=== PATIENT | female | born 1940 | race Caucasian/White ===

== ENCOUNTER → 2016-03-19 13:46 | Outpatient (CLI) | payer OTHER | END | disposition home or self-care (01) | LOC: D.US 13:46 | DX: R22.9 Localized swelling, mass and lump, unspecified (principal) ==

== ENCOUNTER 2018-11-23 19:00 | Outpatient (CLI) | payer OTHER | END 2018-11-23 23:59 | disposition home or self-care (01) | LOC: D.MAMMO 19:00 | PROVIDERS: ATTEND Surgery | DX: R59.0 Localized enlarged lymph nodes (principal) ==

== ENCOUNTER → 2018-12-07 10:35 | Outpatient (CLI) | payer MEDICARE ==
[~2018-12-07 10:35] MED LIST: LISINOPRIL-HCT1 EAC4 PO; ULTRAM50 MG PO
[2018-12-11 11:21] VITALS: BMI 26.2
== END | disposition home or self-care (01) ==
LOC: D.US 10:35 → D.CT 13:30
PROVIDERS: ATTEND Surgery
DX: R59.0 Localized enlarged lymph nodes (principal)

== ENCOUNTER 2018-12-09 12:05 | Inpatient (IN) | payer MEDICARE ==
[~2018-12-09] VITALS: Ht 180.3 cm; Wt 85.3 kg
--- NOTE | 2018-12-09 12:30 | NUR ---
TO ROOM 2203 FROM 'S CLINIC.ASSESSMENT PER FLOW SHEET.IV SITED TO LEFT HAND X1 SICK USING ASEPTIC TECH,22G.FALL PREVENTION INITIATED.CALL LIGHT IN REACH
[2018-12-09 13:36] LABS: INR 1.12 (0.85-1.17); PROTIME 13.9 SECONDS (11.6-15.0)
[2018-12-09 15:12] VITALS: BP 152/72; BMI 26.2
[2018-12-09 16:48] VITALS: BP 137/68
[2018-12-09 18:21] LABS: ALBUMIN 3.7 g/dL (3.4-5.0); ANION GAP 11.3 mmol/L (8-16); BILIRUBIN - TOTAL 0.6 mg/dL (0.2-1.3); CALCIUM 9.7 mg/dL (8.5-10.1); CARBON DIOXIDE 28.8 mmol/L (21.0-32.0); CREATININE - SERUM 0.8 mg/dL (0.6-1.3); POTASSIUM - SERUM 4.1 mmol/L (3.5-5.1); PROTEIN - SERUM 7.3 g/dL (6.4-8.2)
--- NOTE | 2018-12-09 19:16 | NUR ---
REMAINS WITHOUT DISTRESS.CONT PLAN OF CARE
[2018-12-09 20:00] VITALS: BP 125/45
[2018-12-10] VITALS (12 sets, daily range): BP systolic 131–165; BP diastolic 57–81; BMI 26.2
[2018-12-10 05:14] LABS: BASOPHILS 0.3 % (0-2); EOSINOPHILS 4.2 % (0-7); HEMATOCRIT 40.9 % (36.0-48.0); HEMOGLOBIN 12.7 g/dL (12-16); IMMATURE GRANULOCYTES 0.2 % (0-5); LYMPHOCYTES 20.5 % (15-50); MCHC 31.1 g/dL (31.0-37.0); NEUTROPHILS 67.8 % (40-80); PLATELET COUNT 209 10x3/uL (130-400); WBC 5.8 10x3/uL (4.8-10.8)
[2018-12-10 06:02] LABS: CALC OSMOLALITY 284 mosm/kg (275-300); CALCIUM 9.1 mg/dL (8.5-10.1); CHLORIDE - SERUM 105 mmol/L (98-107); CREATININE - SERUM 0.7 mg/dL (0.6-1.3); GLUCOSE 106 mg/dL (74-106); POTASSIUM - SERUM 4.2 mmol/L (3.5-5.1); SODIUM 143 mmol/L (136-145); eGFR NON AFRICAN AMERICAN 85 mL/min (90-120)
[2018-12-10 06:15] LABS: UREA NITROGEN 12 mg/dL (7-18)
[2018-12-10] MEDS ORDERED: LISINOPRIL-HCT1 EAC4 PO (06:33)
[2018-12-10] MEDS ORDERED: ULTRAM50 MG PO (06:33)
--- NOTE | 2018-12-10 10:02 | NUR ---
FAMILY IN ROOM. CL IN REACH. NO NEEDS AT THIS TIME. PREPPED FOR SURGERY.
--- NOTE | 2018-12-10 13:13 | NUR ---
RESPIRATORY HERE AT THIS TIME GETTING EKG
--- NOTE | 2018-12-10 13:18 | NUR ---
CONSULTED WITH ANESTHESIA OF PT 12 LEAD EKG RESULTS. HE VOICED HE BELIVES THE PT HAS SICK SINUS SYNDROME AND THAT HE WILL PUT IN A CONSULT TO CARDIOLOGY. PT IS NOT SYMPTOMATIC AT THIS TIME WILL CONTINUE TO MONITOR
--- NOTE | 2018-12-10 14:01 | NUR ---
CONSULTED WITH ANESTHSIMelissa MCCORMICK ABOUT PT HR OF 50 AND NOTIFIED HIM OF THE CONTINOUS TELEMATRY ORDER FROM . HE VOICED "THAT IS JUST FINE, GOOD THINKING". WILL TRANSPOT PT SOON .
--- NOTE | 2018-12-10 21:15 | NUR ---
PT ALERT & ORIENTED. C/O RIGHT ARM/AXILLA PAIN 05/23. GAVE NORCO-5 1 TAB PO. ERASMO DRAIN WITH SCANT BLOODY DRAINAGE. COMPLETE ASSESSMENT PER FLOW-SHEET. NO OTHER NEEDS. WILL CONTINUE TO MONITOR.
[2018-12-11] VITALS: BP 141/63
[2018-12-11 04:00] VITALS: BP 144/73
[2018-12-11 06:32] LABS: BASOPHILS 0.1 % (0-2); EOSINOPHILS 0.6 % (0-7); HEMATOCRIT 35.3 % (36.0-48.0); HEMOGLOBIN 10.9 g/dL (12-16); IMMATURE GRANULOCYTES 0.4 % (0-5); LYMPHOCYTES 15.6 % (15-50); MCH 27.2 pg (26.0-34.0); MCHC 30.9 g/dL (31.0-37.0); MEAN PLATELET VOLUME 10.3 fL (7.4-10.4); MONOCYTES 9.5 % (2-11); NEUTROPHILS 73.8 % (40-80); PLATELET COUNT 216 10x3/uL (130-400); RBC 4.01 10x6/uL (4.00-5.40); RDW 14.2 % (11.5-14.5)
[2018-12-11 06:43] LABS: CALC OSMOLALITY 282 mosm/kg (275-300); CALCIUM 8.3 mg/dL (8.5-10.1); CARBON DIOXIDE 26.7 mmol/L (21.0-32.0); CHLORIDE - SERUM 107 mmol/L (98-107); CREATININE - SERUM 0.7 mg/dL (0.6-1.3); GLUCOSE 95 mg/dL (74-106); SODIUM 142 mmol/L (136-145); UREA NITROGEN 12 mg/dL (7-18); eGFR NON AFRICAN AMERICAN 85 mL/min (90-120)
--- NOTE | 2018-12-11 07:30 | NUR ---
PT RESTING IN BED WITH EYES OPEN, ALERT AND ORIENTED, NO S/S OF DISTRESS. IV LOCATED TO RIGHT HAND RUNNING D5NS @ 75. DENIES NEEDS AT THIS TIME, WILL CONT TO MONITOR. BED LOW, CALL LIGHT IN REACH.
[2018-12-11 08:46] VITALS: BP 115/60
[2018-12-11 11:21] VITALS: Ht 180.3 cm; Wt 85.3 kg
--- NOTE | 2018-12-11 12:10 | NUR ---
REMOVED ERASMO DRAIN. DENIES NEEDS AT THIS TIME.
--- NOTE | 2018-12-11 12:37 | MORECARE ---
CASE MANAGEMENT DISCHARGE SUMMARY PATIENT: LYLE VILLA UNIT: [id number] ADM DATE: 12/09/18 AGE: 78 : 38 SEX: F ROOM/BED: D.2203 AUTHOR: BRIDGETTE CHI PHYSICIAN: REFERRING PHYSICIAN: VETO [place] MD DATE OF SERVICE: 12/11/18 Discharge Plan Patient Name: LYLE VILLA Facility: [facility]:[place] : 1940 Planned Disposition: Home Anticipated Discharge Date: 12/11/18 Discharge Date: Expected LOS: 2 Initial Reviewer: [email or web address] Initial Review Date: 12/11/2018 Generated: 12/11/18 1:37 pm Patient Name: LYLE VILLA Page 75818 at 1237 All edits/amendments must be made on the electronic document DICTATION DATE: 12/11/[address] OPERATOR: SIMON 12/11/18 1237 RPT#: [id number] DC DATE: STATUS: ADM IN [facility] [address] [place] [address] END OF REPORT
--- NOTE | 2018-12-11 12:44 | MORECARE ---
CASE MANAGEMENT DISCHARGE SUMMARY PATIENT: LYLE VILLA UNIT: [id number] ADM DATE: 12/09/18 AGE: 78 : 38 SEX: F ROOM/BED: D.2203 AUTHOR: BRIDGETTE CHI PHYSICIAN: REFERRING PHYSICIAN: VETO [place] MD DATE OF SERVICE: 12/11/18 Discharge Plan Patient Name: LYLE VILLA Facility: [facility]:[place] : 1940 Planned Disposition: Home Anticipated Discharge Date: 12/11/18 Discharge Date: Expected LOS: 2 Initial Reviewer: [email or web address] Initial Review Date: 12/11/2018 Generated: 12/11/18 1:44 pm DCPIA - Discharge Planning Initial Assessment Updated by [id number]: Vickie Chacon on 12/11/18 12:39 pm * Is the patient Alert and Oriented? Yes * How many steps to enter\exit or inside your home? 3 w/ rail * PCP DR John Bryan * Pharmacy [facility] * Preadmission Environment Home Alone * Partial ADLs (Assistance needed) Bathing * Equipment None * Other Equipment Denies any DME. Denies any need for DME * List name and contact numbers for known caregivers / representatives who currently or will assist patient after discharge: Naomi Pinon- dtr- [phone] * Verbal permission to speak to the caregivers and representatives has been obtained from the patient. Yes * Community resources currently utilized None * Please name any agencies selected above. N/A * Additional services required to return to the preadmission environment? No * Can the patient safely return to the preadmission environment? Yes Last DP export: 12/11/18 11:37 a Patient Name: LYLE VILLA Page [id number] at 1244 All edits/amendments must be made on the electronic document DICTATION DATE: 12/11/18 1244 DOMESTIC LAUNDRY WORKER: SIMON 12/11/18 1244 RPT#: [id number] DC DATE: STATUS: ADM IN [facility] [address] [place] [address] END OF REPORT
--- NOTE | 2018-12-11 13:05 | MORECARE ---
CASE MANAGEMENT DISCHARGE SUMMARY PATIENT: LYLE VILLA UNIT: [id number] ADM DATE: 12/09/18 AGE: 78 : 38 SEX: F ROOM/BED: D.2203 AUTHOR: ALON,DOC PHYSICIAN: REFERRING PHYSICIAN: VETO MARION MD DATE OF SERVICE: 12/11/18 Discharge Plan Patient Name: LYLE VILLA Facility: [facility]:[place] : 1940 Planned Disposition: Home Anticipated Discharge Date: 12/11/18 Discharge Date: Expected LOS: 2 Initial Reviewer: [email or web address] Initial Review Date: 12/11/2018 Generated: 12/11/18 2:04 pm Comments DCP- Discharge Planning Updated by [email or web address]: Vickie Chacon on 12/11/18 12:[address] CM MET WITH THE PATIENT IN HER ROOM. HER DAUGHTERS ARE AT THE BEDSIDE. PATIENT IS AWARE SHE IS GOING HOME AND IS ANXIOUS FOR DISCHARGE. HER DAUGHTERS, NAOMI AND FABIANA, VOICED CONCERNS. SHE LIVES ALONE. THE ONE DAUGHTER, NAOMI, LIVES ON THE SAME PROPERTY. THE DAUGHTERS AND THE SON IN LAW CAN ASSIST THE PATIENT. THE PATIENT HAS BEEN UP AND AMBULATED TO THE BATHROOM AND IN HER ROOM WITHOUT DIFFICULTY PER THE PATIENT AND HER NURSE. SHE STATES SHE IS INDEPENDENT IN HER CARE. DOES NOT UTILIZE ANY DME. SHE DOES FEEL SHE NEEDS ANY DME. SHE DOES HAVE A LITTLE DOG. SHE DOES NOT WANT TO FALL. CM DISCUSSED SAFETY MEASURES W/ A PET IN THE HOME. SHE DOES NOT FEEL SHE NEEDS ANY HOME CARE. SHE STATED SOMEONE FROM HER INSURANCE COMPANY CALLED TO SEE IF SHE WOULD NEED HELP AT HOME. SHE STATES SHE TOLD THEM NO. CM ADVISED THE DOCTOR HAS ORDERED HOUSECALLS. EXPLAINED HOUSECALLS TO THE PATIENT. MANAGER CAFE WILL PROVIDE HOUSECALLS BROCHURE TO THE PATIENT. PCP- [facility]- [facility] in [place]. THE DAUGHTER STATES THEY WILL USE [facility] AT NOON. THE FAMILY AT THE BEDSIDE WILL PROVIDE TRANSPORTATION HOME. SHE HAS 3 STEPS W/ RAILING INTO HER HOME. SHE HAD NOT HAD A HOSPITALIZATION IN THE LAST MONTH. CM ASK IF THE DTRS HAD SPOKEN WITH THE DOCTORS. FABIANA WAS AT THE BEDSIDE WHEN DR JONES VISITED THIS AM. NAOMI WAS AT THE BEDSIDE WHEN DR RÍOS VISITED. CM ADVISED THE PRIMARY NURSE AND FRANK PORTILLO, THAT THE DAUGHTERS HAD VOICED SOME CONCERNS. THE PATIENT HOWEVER IS ANXIOUS TO BE DISCHARGED TO HOME. SHE FEELS SHE WILL DO WELL. DCPIA - Discharge Planning Initial Assessment Updated by [id number]: Vickie Chacon on 12/11/18 12:39 pm * Is the patient Alert and Oriented? Yes * How many steps to enter\exit or inside your home? 3 w/ rail * PCP DR John Coronado * Pharmacy [facility] * Preadmission Environment Home Alone * Partial ADLs (Assistance needed) Bathing * Equipment None * Other Equipment Denies any DME. Denies any need for DME * List name and contact numbers for known caregivers / representatives who currently or will assist patient after discharge: Naomi Pinon- dtr- [phone] * Verbal permission to speak to the caregivers and representatives has been obtained from the patient. Yes * Community resources currently utilized None * Please name any agencies selected above. N/A * Additional services required to return to the preadmission environment? No * Can the patient safely return to the preadmission environment? Yes Last DP export: 12/11/18 11:44 a Patient Name: LYLE VILLA Page 14470 at 1305 All edits/amendments must be made on the electronic document DICTATION DATE: 12/11/18 1304 GOLF CADDY: SMION 12/11/18 1304 RPT#: [id number] DC DATE: STATUS: ADM IN [facility] [address] [place] [address] END OF REPORT
--- NOTE | 2018-12-11 13:20 | NUR ---
PT DISCHARGED HOME VIA WHEELCHAIR WITH HER FAMILY.
--- NOTE | 2018-12-11 16:52 | MORECARE ---
CASE MANAGEMENT DISCHARGE SUMMARY PATIENT: LYLE VILLA UNIT: [id number] ADM DATE: 12/09/18 AGE: 78 : 38 SEX: F ROOM/BED: D.2203 AUTHOR: ALON,DOC PHYSICIAN: REFERRING PHYSICIAN: VETO MARION MD DATE OF SERVICE: 12/11/18 Discharge Plan Patient Name: LYLE VILLA Facility: [facility]:[place] : 1940 Planned Disposition: Home Anticipated Discharge Date: 12/11/18 Discharge Date: 12/11/2018 Expected LOS: 2 Initial Reviewer: [email or web address] Initial Review Date: 12/11/2018 Generated: 12/11/18 5:52 pm Comments DCP- Discharge Planning Updated by [email or web address]: Vickie Chacon on 12/11/18 12:[address] CM MET WITH THE PATIENT IN HER ROOM. HER DAUGHTERS ARE AT THE BEDSIDE. PATIENT IS AWARE SHE IS GOING HOME AND IS ANXIOUS FOR DISCHARGE. HER DAUGHTERS, NAOMI AND FABIANA, VOICED CONCERNS. SHE LIVES ALONE. THE ONE DAUGHTER, NAOMI, LIVES ON THE SAME PROPERTY. THE DAUGHTERS AND THE SON IN LAW CAN ASSIST THE PATIENT. THE PATIENT HAS BEEN UP AND AMBULATED TO THE BATHROOM AND IN HER ROOM WITHOUT DIFFICULTY PER THE PATIENT AND HER NURSE. SHE STATES SHE IS INDEPENDENT IN HER CARE. DOES NOT UTILIZE ANY DME. SHE DOES FEEL SHE NEEDS ANY DME. SHE DOES HAVE A LITTLE DOG. SHE DOES NOT WANT TO FALL. CM DISCUSSED SAFETY MEASURES W/ A PET IN THE HOME. SHE DOES NOT FEEL SHE NEEDS ANY HOME CARE. SHE STATED SOMEONE FROM HER INSURANCE COMPANY CALLED TO SEE IF SHE WOULD NEED HELP AT HOME. SHE STATES SHE TOLD THEM NO. CM ADVISED THE DOCTOR HAS ORDERED HOUSECALLS. EXPLAINED HOUSECALLS TO THE PATIENT. PLATFORM LOADER WILL PROVIDE HOUSECALLS BROCHURE TO THE PATIENT. PCP- [facility]- [facility] in [place]. THE DAUGHTER STATES THEY WILL USE [facility] AT NOON. THE FAMILY AT THE BEDSIDE WILL PROVIDE TRANSPORTATION HOME. SHE HAS 3 STEPS W/ RAILING INTO HER HOME. SHE HAD NOT HAD A HOSPITALIZATION IN THE LAST MONTH. CM ASK IF THE DTRS HAD SPOKEN WITH THE DOCTORS. FABIANA WAS AT THE BEDSIDE WHEN DR JONES VISITED THIS AM. NAOMI WAS AT THE BEDSIDE WHEN DR RÍOS VISITED. CM ADVISED THE PRIMARY NURSE AND FRANK PORTILLO, THAT THE DAUGHTERS HAD VOICED SOME CONCERNS. THE PATIENT HOWEVER IS ANXIOUS TO BE DISCHARGED TO HOME. SHE FEELS SHE WILL DO WELL. DCPIA - Discharge Planning Initial Assessment Updated by [email or web address]: Vickie Chacon on 12/11/18 12:39 pm * Is the patient Alert and Oriented? Yes * How many steps to enter\exit or inside your home? 3 w/ rail * PCP DR John Coronado * Pharmacy [facility] * Preadmission Environment Home Alone * Partial ADLs (Assistance needed) Bathing * Equipment None * Other Equipment Denies any DME. Denies any need for DME * List name and contact numbers for known caregivers / representatives who currently or will assist patient after discharge: Naomi Pinon- dtr- [phone] * Verbal permission to speak to the caregivers and representatives has been obtained from the patient. Yes * Community resources currently utilized None * Please name any agencies selected above. N/A * Additional services required to return to the preadmission environment? No * Can the patient safely return to the preadmission environment? Yes Coverage Notice Reviewer: [id number] - Vickie Chacon Notice Issued Date-Time: 12/11/2018 12:50 Notice Type: IM Discharge Notice Notice Delivered To: Patient Relationship to Patient: Self Bank Advisor Name: Delivery Method: HAND - Hand Delivered Keshia Days: Prior Verbal Notification: Recipient Understood Notice: Yes Recipient Signature: Yes Med Rec Note Co-signed by Attending: Coverage Notice Comment: PATIENT ANXIOUS FOR DISCHARGE TO HOME. DISCHARGE IMM SERVED. NO QUESTIONS. DISCHARGE IMM SIGNED. SIGNED COPY TO THE PATIENT. SIGNED COPY TO THE HARD COVER CHART. Last DP export: 12/11/18 12:05 p Patient Name: LYLE VILLA Page [id number] at 1652 All edits/amendments must be made on the electronic document DICTATION DATE: 12/11/181651 BRICK OR BLOCK MAKER: SIMON 12/11/181651 RPT#: [id number] DC DATE:12/11/18 STATUS: DIS IN [place] [id number] [facility], [facility] END OF REPORT
--- NOTE | 2018-12-12 22:18 | OP ---
PATIENT NAME: LYLE VILLA MEDICAL RECORD: [id number] :[birth year] LOCATION:D.MS Soria2203 ADMISSION DATE:12/09/18 SURGEON: JON HERRERA MD DATE OF OPERATION: 12/10/2018 SURGEON: Jon Herrera MD PREOPERATIVE DIAGNOSIS: Metastatic cancer with right axillary mass. POSTOPERATIVE DIAGNOSIS: Metastatic cancer with right axillary mass. PROCEDURE PERFORMED: 1. Incisional biopsy of right axillary mass. 2. Repair of right axillary artery. ANESTHESIA: General. SPECIMENS: None. ESTIMATED BLOOD LOSS: 100 cc. WOUND CLASS: Clean. OPERATIVE COURSE: After consent was obtained, the patient was taken to the operating room and placed in supine position on the operating table. Next, general anesthesia was given via endotracheal intubation after a timeout was performed to confirm the correct patient and procedure. The right axilla was prepped and draped in typical sterile fashion. The right axillary mass, which was identified on preoperative imaging was palpated. Local anesthetic was injected. Skin incision was made over the mass with a 15 blade scalpel. Dissection continued through the subcutaneous tissue with electrocautery. Once I dissected the subcutaneous tissue, the mass was identified. It was bluntly finger dissected and extended well beyond underneath the pectoralis major and down to the anterior chest wall. It was dissected to the lateral chest wall. As dissection continued around the anterior side of the mass, a brisk arterial bleed was encountered from the dissection. I believe there was a sidewall injury on the axillary artery when attempting to mobilize the axillary mass. The axillary artery was clamped, proximal and distal, dissection of the artery was obtained until the vessel clamps were placed with proximal and distal control of the artery, the area of inadvertent arteriotomy was identified. At this time 5000 units of intravenous Heparin were administered. Once the dissection of the artery was complete and the proximal and distal control had been obtained, the vessel loops were released. There was no active bleeding. At this time, the Doppler was placed on the artery. There was positive Doppler flow at the level of the radial artery. BioGlue was applied to the artery. There was no further bleeding identified at this time. At this time, an incisional biopsy was performed of the mass. The mass was approximately 10 cm x 8 cm x 5 cm. An incisional biopsy was performed. At this point it was safet to attempt to remove the mass en bloc as the superior portion of the mass was encased around the axillary artery. The specimen was passed off the field for frozen section and permanent pathology. The wound bed was copiously irrigated and suctioned. Hemostasis obtained with electrocautery and clips. Rosalia was also applied to the wound bed. A ERASMO drain was placed into the axilla and delivered through the skin and secured with 2-0 nylon suture. The wound was closed in 3 layers. The deep subcutaneous tissue was closed with 0 Vicryl, OPERATIVE REPORT [id number] LYLE VILLA superficial subq with 3-0 Vicryl. Skin was closed with 4-0 Stratafix and Dermabond. At the end of the case, all needle and instrument counts were correct. No complications occurred. The patient had palpable radial pulse as well as positive Doppler signals in the right radial artery and ulnar artery. The patient was extubated and transferred to PACU in satisfactory condition. TRANSINT:[id number] Voice Confirmation ID: [id number] DOCUMENT ID: [id number] JON HERRERA MD at 2218 CC: [id number] DICTATION DATE: 12/10/18 1311 RVDA MASTER CERTIFIED RV TECHNICIAN: 12/10/18 1653 DIS IN 12/11/18 [facility] [address] [place] [address]
--- NOTE | 2018-12-13 08:47 | MORECARE ---
CASE MANAGEMENT DISCHARGE SUMMARY PATIENT: LYLE VILLA UNIT: [id number] ADM DATE: 12/09/18 AGE: 78 : 38 SEX: F ROOM/BED: D.2203 AUTHOR: ALON,DOC PHYSICIAN: REFERRING PHYSICIAN: VETO [place] MD DATE OF SERVICE: 12/13/18 Discharge Plan Patient Name: LYLE VILLA Facility: [facility]:[place] : 1940 Planned Disposition: Home Anticipated Discharge Date: 12/11/18 Discharge Date: 12/11/2018 Expected LOS: 2 Initial Reviewer: [email or web address] Initial Review Date: 12/11/2018 Generated: 12/13/18 9:47 am Comments DCP- Discharge Planning Updated by [id number]: Vickie Chacon on 12/11/18 12:[address] CM MET WITH THE PATIENT IN HER ROOM. HER DAUGHTERS ARE AT THE BEDSIDE. PATIENT IS AWARE SHE IS GOING HOME AND IS ANXIOUS FOR DISCHARGE. HER DAUGHTERS, NAOMI AND FABIANA, VOICED CONCERNS. SHE LIVES ALONE. THE ONE DAUGHTER, NAOMI, LIVES ON THE SAME PROPERTY. THE DAUGHTERS AND THE SON IN LAW CAN ASSIST THE PATIENT. THE PATIENT HAS BEEN UP AND AMBULATED TO THE BATHROOM AND IN HER ROOM WITHOUT DIFFICULTY PER THE PATIENT AND HER NURSE. SHE STATES SHE IS INDEPENDENT IN HER CARE. DOES NOT UTILIZE ANY DME. SHE DOES FEEL SHE NEEDS ANY DME. SHE DOES HAVE A LITTLE DOG. SHE DOES NOT WANT TO FALL. CM DISCUSSED SAFETY MEASURES W/ A PET IN THE HOME. SHE DOES NOT FEEL SHE NEEDS ANY HOME CARE. SHE STATED SOMEONE FROM HER INSURANCE COMPANY CALLED TO SEE IF SHE WOULD NEED HELP AT HOME. SHE STATES SHE TOLD THEM NO. CM ADVISED THE DOCTOR HAS ORDERED HOUSECALLS. EXPLAINED HOUSECALLS TO THE PATIENT. OFFSET PLATE MAKER WILL PROVIDE HOUSECALLS BROCHURE TO THE PATIENT. PCP- [facility]- [facility] in [place]. THE DAUGHTER STATES THEY WILL USE [facility] AT NOON. THE FAMILY AT THE BEDSIDE WILL PROVIDE TRANSPORTATION HOME. SHE HAS 3 STEPS W/ RAILING INTO HER HOME. SHE HAD NOT HAD A HOSPITALIZATION IN THE LAST MONTH. CM ASK IF THE DTRS HAD SPOKEN WITH THE DOCTORS. FABIANA WAS AT THE BEDSIDE WHEN DR JONES VISITED THIS AM. NAOMI WAS AT THE BEDSIDE WHEN DR RÍOS VISITED. CM ADVISED THE PRIMARY NURSE AND FRANK PORTILLO, THAT THE DAUGHTERS HAD VOICED SOME CONCERNS. THE PATIENT HOWEVER IS ANXIOUS TO BE DISCHARGED TO HOME. SHE FEELS SHE WILL DO WELL. DCPIA - Discharge Planning Initial Assessment Updated by [email or web address]: Vickie Chacon on 12/11/18 12:39 pm * Is the patient Alert and Oriented? Yes * How many steps to enter\exit or inside your home? 3 w/ rail * PCP DR John Coronado * Pharmacy [facility] * Preadmission Environment Home Alone * Partial ADLs (Assistance needed) Bathing * Equipment None * Other Equipment Denies any DME. Denies any need for DME * List name and contact numbers for known caregivers / representatives who currently or will assist patient after discharge: Naomi Pinon- dtr- [phone] * Verbal permission to speak to the caregivers and representatives has been obtained from the patient. Yes * Community resources currently utilized None * Please name any agencies selected above. N/A * Additional services required to return to the preadmission environment? No * Can the patient safely return to the preadmission environment? Yes Coverage Notice Reviewer: [email or web address] - Vickie Chacon Notice Issued Date-Time: 12/11/2018 12:50 Notice Type: IM Discharge Notice Notice Delivered To: Patient Relationship to Patient: Self Tax Technician Name: Delivery Method: HAND - Hand Delivered Keshia Days: Prior Verbal Notification: Recipient Understood Notice: Yes Recipient Signature: Yes Med Rec Note Co-signed by Attending: Coverage Notice Comment: PATIENT ANXIOUS FOR DISCHARGE TO HOME. DISCHARGE IMM SERVED. NO QUESTIONS. DISCHARGE IMM SIGNED. SIGNED COPY TO THE PATIENT. SIGNED COPY TO THE HARD COVER CHART. Last DP export: 12/11/18 3:52 p Patient Name: LYLE VILLA Page [id number] at 0847 All edits/amendments must be made on the electronic document DICTATION DATE: 12/13/18846 ROD BENDING MACHINE OPERATOR: SIMON 12/13/18846 RPT#: [id number] DC DATE:12/11/18 STATUS: DIS IN [place] [id number] [facility], [facility] END OF REPORT
--- NOTE | 2018-12-13 11:22 | OP ---
PATIENT NAME: LYLE VILLA MEDICAL RECORD: [id number] :36 LOCATION:D.MS Soria2203 ADMISSION DATE:12/09/18 SURGEON: JADE FLORES MD DATE OF OPERATION: 12/10/2018 This is an assistant laboratory director's note. I assisted Dr. Jay Araya with repair of an axillary artery. I was called to the room emergently. Dr. Araya already had proximal and distal control on the bleeding area on the artery. My involvement in the operation included some dissection further proximally and further distally. I was able to encircle the artery with some vessel loops. We then released his control on the artery. There was no further bleeding. We then sealed the artery with BioGlue. My suspicion is that there was perhaps a small side branch that was avulsed or maybe there was a linear tear, but it had closed by the time we had investigated the situation. Anyhow, there was no further bleeding. The patient had a bounding right radial artery pulse. Under color Doppler, we could see apparent arteries in the axilla, one was the axillary artery and it had patent flow as did the other artery, which was more posterior. On the medial aspect of the right arm, arterial Doppler signal could be seen in the brachial artery. I then left. Dr. Araya went about closing the wound. My involvement in the arterial repair was minor. TRANSINT:[id number] Voice Confirmation ID: [id number] DOCUMENT ID: [id number] JADE FLORES MD at 1122 CC: [id number] DICTATION DATE: 12/11/18905 WOOD BOATBUILDER APPRENTICE: 12/11/18 09 DIS IN 12/11/18 [facility] [address] [place] [id number]
[2018-12-14 11:13] LABS: CA 27-29 40.5 U/mL (0.0-38.6)
[2018-12-14 13:10] LABS: CA125 13.4 U/mL (0.0-38.1); CEA 1.4 ng/mL (0.0-4.7)
== END 2018-12-11 13:20 | disposition home or self-care (01) | DRG 824 ==
LOC: D.MS 12:05
PROVIDERS: Internal Medicine Hematology & Oncology; ADMIT Surgery; ATTEND Internal Medicine Nephrology
PROC: 03Q Upper Arteries, Repair (ICD-10-PCS; 2018-12-10)
PROC: 07B50ZX Excision of Right Axillary Lymphatic, Open Approach, Diagnostic (ICD-10-PCS; principal; 2018-12-10 10:00)
DX: C77.3 Secondary and unspecified malignant neoplasm of axilla and upper limb lymph nodes (principal); D62 Acute posthemorrhagic anemia; I97.52 Accidental puncture and laceration of a circulatory system organ or structure during other procedure; C80.1 Malignant (primary) neoplasm, unspecified; I10 Essential (primary) hypertension; Y83.9 Surgical procedure, unspecified as the cause of abnormal reaction of the patient, or of later complication, without mention of misadventure at the time of the procedure

== ENCOUNTER → 2018-12-29 09:15 | Outpatient (CLI) | payer MEDICARE ==
[2018-12-11 11:21] VITALS: BMI 26.2
[~2018-12-29 09:15] MED LIST changes: +DURAGESIC1 PATCH .4 TRANSDERM; +HYDROCODON-ACE1 EAC7 PO; +LEVOFLOXACIN500 MG PO; +MIRALAX17 GM PO; +NORVASC5 MG PO; +PREDNISONE10 MG PO
== END | disposition home or self-care (01) ==
LOC: D.MRI 09:15
PROVIDERS: ATTEND Internal Medicine Hematology & Oncology
DX: C43.8 Malignant melanoma of overlapping sites of skin (principal)

== ENCOUNTER 2019-01-02 09:12 | Emergency (ER) | payer MEDICARE ==
[~2019-01-02] VITALS: Ht 180.3 cm; Wt 83.2 kg
[~2019-01-02 09:12] MED LIST changes: -DURAGESIC1 PATCH .4 TRANSDERM; -HYDROCODON-ACE1 EAC7 PO; -LEVOFLOXACIN500 MG PO; -MIRALAX17 GM PO; -NORVASC5 MG PO; -PREDNISONE10 MG PO
[2019-01-02 09:17] VITALS: Ht 180.3 cm; Wt 83.2 kg
[2019-01-02 09:48] LABS: BASOPHILS 0.2 % (0-2); EOSINOPHILS 0.9 % (0-7); HEMATOCRIT 41.4 % (36.0-48.0); IMMATURE GRANULOCYTES 0.2 % (0-5); LYMPHOCYTES 16.5 % (15-50); MCH 27.2 pg (26.0-34.0); MCHC 31.4 g/dL (31.0-37.0); MCV 86.6 fL (80.0-100.0); MEAN PLATELET VOLUME 10.1 fL (7.4-10.4); MONOCYTES 7.3 % (2-11); NEUTROPHILS 74.9 % (40-80); PLATELET COUNT 243 10x3/uL (130-400); RBC 4.78 10x6/uL (4.00-5.40); RDW 13.4 % (11.5-14.5); WBC 6.3 10x3/uL (4.8-10.8)
[2019-01-02 09:56] LABS: APTT 23.8 SECONDS (22.8-39.4); CALC OSMOLALITY 277 mosm/kg (275-300); CALCIUM 11.4 mg/dL (8.5-10.1); CHLORIDE - SERUM 104 mmol/L (98-107); CREATININE - SERUM 0.8 mg/dL (0.6-1.3); GLUCOSE 118 mg/dL (74-106); INR 0.97 (0.85-1.17); POTASSIUM - SERUM 4.6 mmol/L (3.5-5.1); PROTIME 12.4 SECONDS (11.6-15.0); SODIUM 139 mmol/L (136-145); UREA NITROGEN 10 mg/dL (7-18); eGFR NON AFRICAN AMERICAN 73 mL/min (90-120)
[2019-01-02 09:57] LABS: D-DIMER-QUANTITATIVE 2.12 ug/mLFEU (0.20-0.54)
[2019-01-02 10:04] LABS: APPEARANCE CLEAR (CLEAR); BILIRUBIN NEGATIVE (NEGATIVE); COLOR YELLOW (YELLOW); GLUCOSE NEGATIVE (NEGATIVE); KETONE NEGATIVE (NEGATIVE); NITRITE NEGATIVE (NEGATIVE); PROTEIN NEGATIVE (NEGATIVE); SPECIFIC GRAVITY 1.015 (1.005-1.020); UROBILINOGEN NORMAL (NORMAL)
[2019-01-02 10:11] LABS: ALBUMIN 3.6 g/dL (3.4-5.0); ALKALINE PHOSPHATASE 95 U/L (46-116); ALT (SGPT) 25 U/L (10-68); BILIRUBIN - TOTAL 0.85 mg/dL (0.2-1.3); CKMB 0.8 U/L (0.0-3.6); CREATINE KINASE 27 UL (21-215); PRO BNP 411 pg/mL (0-450); PROTEIN - SERUM 7.4 g/dL (6.4-8.2)
[2019-01-02 10:12] LABS: TROPONIN-I < 0.017 ng/mL (0.000-0.060)
[2019-01-02] MEDS ORDERED: NORVASC5 MG PO (12:12)
[2019-01-02 13:12] VITALS: BP 143/90
== END 2019-01-02 14:06 | disposition home or self-care (01) ==
LOC: D.ER 09:12
PROVIDERS: Emergency Medicine
DX: C79.2 Secondary malignant neoplasm of skin (principal); I10 Essential (primary) hypertension; R06.02 Shortness of breath

== ENCOUNTER 2019-01-10 10:12 | Inpatient (IN) | payer MEDICARE ==
[~2019-01-10] VITALS: Ht 180.3 cm; Wt 81.2 kg
[~2019-01-10 10:12] MED LIST changes: +NORVASC5 MG PO
[2019-01-10 11:14] LABS: ALBUMIN 3.6 g/dL (3.4-5.0); ALKALINE PHOSPHATASE 104 U/L (46-116); ALT (SGPT) 86 U/L (10-68); BILIRUBIN - TOTAL 0.88 mg/dL (0.2-1.3); CALC OSMOLALITY 277 mosm/kg (275-300); CHLORIDE - SERUM 102 mmol/L (98-107); CREATININE - SERUM 0.7 mg/dL (0.6-1.3); GLUCOSE 113 mg/dL (74-106); POTASSIUM - SERUM 4.6 mmol/L (3.5-5.1); PROTEIN - SERUM 7.1 g/dL (6.4-8.2); SODIUM 138 mmol/L (136-145); UREA NITROGEN 15 mg/dL (7-18); eGFR NON AFRICAN AMERICAN 85 mL/min (90-120)
[2019-01-10 11:24] LABS: CALCIUM 12.1 mg/dL (8.5-10.1)
[2019-01-10 11:37] LABS: CKMB 0.6 U/L (0.0-3.6); CREATINE KINASE 26 UL (21-215); TROPONIN-I < 0.017 ng/mL (0.000-0.060)
[2019-01-10 11:58] VITALS: BP 142/85
[2019-01-10 11:59] LABS: BASOPHILS 0.2 % (0-2); EOSINOPHILS 1.6 % (0-7); HEMATOCRIT 40.3 % (36.0-48.0); HEMOGLOBIN 12.5 g/dL (12-16); IMMATURE GRANULOCYTES 0.2 % (0-5); LYMPHOCYTES 14.7 % (15-50); MCH 27.1 pg (26.0-34.0); MCV 87.2 fL (80.0-100.0); MEAN PLATELET VOLUME 9.8 fL (7.4-10.4); MONOCYTES 6.6 % (2-11); NEUTROPHILS 76.7 % (40-80); PLATELET COUNT 235 10x3/uL (130-400); RBC 4.62 10x6/uL (4.00-5.40); RDW 13.3 % (11.5-14.5); WBC 6.4 10x3/uL (4.8-10.8)
[2019-01-10 12:09] LABS: APTT 23.4 SECONDS (22.8-39.4); INR 0.99 (0.85-1.17); PROTIME 12.6 SECONDS (11.6-15.0)
--- NOTE | 2019-01-10 12:17 | MORECARE ---
CASE MANAGEMENT DISCHARGE SUMMARY PATIENT: LYLE VILLA UNIT: [id number] ADM DATE: 01/10/19 AGE: 78 : 38 SEX: F ROOM/BED: D.2223 AUTHOR: ALON,BRIDGETTE PHYSICIAN: REFERRING PHYSICIAN: NANCY CORONADO DO DATE OF SERVICE: 01/10/19 Discharge Plan Patient Name: LYLE VILLA Facility: [facility]:[place] : 1940 Planned Disposition: Home Anticipated Discharge Date: 01/12/19 Discharge Date: Expected LOS: 2 Initial Reviewer: [email or web address] Initial Review Date: 01/10/2019 Generated: 01/10/19 1:16 pm DCP- Discharge Planning Updated by [email or web address]: Isabell Monsalve on 01/10/19 11:[address] DC PLAN: Return home alone. ANTICIPATED DC NEEDS: Denied dc needs at time of assessment. CM met with patient and her daughter Naomi to complete initial dc planning assessment. CM educated patient on the CM role and verbal consent given by patient to complete assessment. CM verified patient's address, phone number, and emergency contact phone numbers. Patient lives at home alone and her daughter lives next door. At discharge patient plans to return home and feels this is a safe discharge. CM discussed availability of home health, rehab services, and medical equipment. Patient denied known discharge needs at this time. Dr. Hardin is her oncologist. She has been taking Ultram for the pain but it is not helping. The pain is to her Right arm. Transportation provider at discharge will be her daughter Naomi . CM will continue to follow and will assist as needed with dc plans/needs. Isabell Monsalve RN, [facility] DCPIA - Discharge Planning Initial Assessment Updated by [email or web address]: Isabell Monsalve on 01/10/19 12:10 pm * Is the patient Alert and Oriented? Yes * How many steps to enter\exit or inside your home? * PCP Dr. Coronado * Pharmacy [facility] in [place] * Preadmission Environment Home Alone * ADLs Independent * Equipment Cane Rolling Walker * List name and contact numbers for known caregivers / representatives who currently or will assist patient after discharge: Naomi Pinon - daughter - [phone] * Verbal permission to speak to the caregivers and representatives has been obtained from the patient. Yes * Community resources currently utilized None * Additional services required to return to the preadmission environment? No * Can the patient safely return to the preadmission environment? Yes * Has this patient been hospitalized within the prior 30 days at any hospital? No Patient Name: LYLE VILLA Page [id number] at 1217 All edits/amendments must be made on the electronic document DICTATION DATE: 01/10/191215 PROCESS PUMPER: SIMON 01/10/191215 RPT#: [id number] DC DATE: STATUS: ADM IN [facility] [address] [place] [address] END OF REPORT
[2019-01-10 12:30] VITALS: BP 115/74
--- NOTE | 2019-01-10 12:52 | NUR ---
RECEIVED PATIENT FROM ER VIA BED, ACCOMPANIED BY ER STAFF. ALERT AND ORIENTED, UP AD SHILPA. C/O PAIN TO RIGHT UPPER EXTREMITY, REDNESS AND SWELLING PRESENT. VITALS STABLE. NO S/S OF ACUTE DISTRESS NOTED. CALL LIGHT IN REACH. WILL CONTINUE TO MONITOR.
[2019-01-10 14:33] VITALS: BP 129/84; BMI 25.0
--- NOTE | 2019-01-10 18:14 | NUR ---
ALERT AND ORIENTED, RESTING IN BED. NO C/O PAIN. NO S/S OF ACUTE DISTRESS NOTED. CALL LIGHT IN REACH. DENIES ANY NEEDS AT THIS TIME. WILL CONTINUE TO MONITOR.
[2019-01-10 22:13] VITALS: BP 176/71
[2019-01-11 01:21] VITALS: BP 168/73
--- NOTE | 2019-01-11 01:48 | NUR ---
PT RESTING IN BED. EYES CLOSED. NO SIGNS OF DISTRESS. BREATHING EVEN AND UNLABORED. IV SITE LT HAND DRESSING CLEAN DRY AND INTACT. NO SIGNS OF INFECTION. LUNG SOUNDS CLEAR. BOWEL SOUNDS ACTIVE. RT ARM SWELLING PRESENT. SKIN CLEAN DRY AND INTACT. WILL CONTINUE PLAN OF CARE. CALL LIGHT IN REACH. BED LOWERED AND LOCKED. BED RAILS UPX2. ANDRÉS ALRM ON. YELLOW GOWN AND SOCKS ON. YELLOW ARM BAND ON.
[2019-01-11 05:34] VITALS: BP 188/99
[2019-01-11 06:58] LABS: BASOPHILS 0.3 % (0-2); EOSINOPHILS 2.4 % (0-7); HEMOGLOBIN 12.1 g/dL (12-16); IMMATURE GRANULOCYTES 0.2 % (0-5); LYMPHOCYTES 18.2 % (15-50); MCH 26.7 pg (26.0-34.0); MCHC 30.3 g/dL (31.0-37.0); MCV 88.3 fL (80.0-100.0); MEAN PLATELET VOLUME 10.2 fL (7.4-10.4); MONOCYTES 7.7 % (2-11); NEUTROPHILS 71.2 % (40-80); PLATELET COUNT 236 10x3/uL (130-400); RBC 4.53 10x6/uL (4.00-5.40); RDW 13.5 % (11.5-14.5)
[2019-01-11 07:21] LABS: ALBUMIN 3.3 g/dL (3.4-5.0); ANION GAP 8.6 mmol/L (8-16); BILIRUBIN - TOTAL 0.96 mg/dL (0.2-1.3); CALCIUM 11.7 mg/dL (8.5-10.1); CARBON DIOXIDE 32.7 mmol/L (21.0-32.0); POTASSIUM - SERUM 4.3 mmol/L (3.5-5.1); PROTEIN - SERUM 7.2 g/dL (6.4-8.2)
[2019-01-11 08:22] VITALS: BP 173/81
[2019-01-11 12:37] VITALS: BP 183/84
[2019-01-11 13:58] VITALS: BMI 24.9
[2019-01-11 16:02] VITALS: BP 186/74
--- NOTE | 2019-01-11 16:57 | NUR ---
PT IS WITHOUT NEEDS.MONITOR FOR CHANGE
--- NOTE | 2019-01-11 20:00 | NUR ---
A/O WITH NO SIGNS OF DISTRESS. IV TO THE LT WRIST WITH NO REDNESS OR SWELLING. ANDRÉS ALARM ON. OBTAINED CONSENTS WITH NO OTHER NEEDS NOTED AT THIS TIME. CONTINUE PLAN OF CARE.
[2019-01-11 21:26] VITALS: BP 195/87
[2019-01-12 02:26] VITALS: BP 152/82
[2019-01-12 05:51] VITALS: BP 148/70
[2019-01-12 06:52] LABS: BASOPHILS 0.2 % (0-2); EOSINOPHILS 2.4 % (0-7); HEMATOCRIT 37.7 % (36.0-48.0); HEMOGLOBIN 11.8 g/dL (12-16); LYMPHOCYTES 7.8 % (15-50); MCH 27.6 pg (26.0-34.0); MCHC 31.3 g/dL (31.0-37.0); MCV 88.1 fL (80.0-100.0); MEAN PLATELET VOLUME 10.8 fL (7.4-10.4); MONOCYTES 5.3 % (2-11); NEUTROPHILS 84.3 % (40-80); PLATELET COUNT 208 10x3/uL (130-400); RBC 4.28 10x6/uL (4.00-5.40); RDW 13.6 % (11.5-14.5); WBC 5.5 10x3/uL (4.8-10.8)
[2019-01-12 07:32] LABS: ALKALINE PHOSPHATASE 99 U/L (46-116); ALT (SGPT) 94 U/L (10-68); BILIRUBIN - TOTAL 0.79 mg/dL (0.2-1.3); CALC OSMOLALITY 279 mosm/kg (275-300); CALCIUM 10.7 mg/dL (8.5-10.1); CARBON DIOXIDE 29.7 mmol/L (21.0-32.0); CHLORIDE - SERUM 104 mmol/L (98-107); GLUCOSE 97 mg/dL (74-106); POTASSIUM - SERUM 4.3 mmol/L (3.5-5.1); PROTEIN - SERUM 6.1 g/dL (6.4-8.2); SODIUM 140 mmol/L (136-145); UREA NITROGEN 16 mg/dL (7-18); eGFR NON AFRICAN AMERICAN 85 mL/min (90-120)
[2019-01-12 07:48] LABS: CREATININE - SERUM 0.7 mg/dL (0.6-1.3)
[2019-01-12 08:24] VITALS: BP 181/76
[2019-01-12 12:21] VITALS: BP 171/79
[2019-01-12 13:40] VITALS: BP 164/80
--- NOTE | 2019-01-12 13:40 | NUR ---
PATIENT BACK TO ROOM WITH VS STABLE. NO COMPLAINTS OR SIGNS OF DISTRESS. PORT ACCESSED AND INTACT. DRESSING CDI. STATES NO PAIN OR PROBLEMS. FAMILY AT BEDSIDE. CALL LIGHT WITHIN REACH.
--- NOTE | 2019-01-12 18:45 | NUR ---
PATIENT IN BED WITH NO COMPLAINTS OR SIGNS OF DISTRESS. EYES CLOSED WITH RIGHT ARM COMPRESSION ON AND BSCDS ON AND WORKING AT THIS TIME. VS STABLE. CALL LIGHT WITHIN REACH.
--- NOTE | 2019-01-12 19:25 | NUR ---
PT SITTING UP IN BED WITHOUT DISTRESS, AOX4. IV LEFT WRIST INFUSING NS @ 10 WITH MORPHINE MANAGER UI. SCDS ON. TELE ON, HR 54 SB. RIGHT NECK DRESSING CDI. PORT PLACED TODAY, DRESSING CDI. PT DENIES PAIN OR NEEDS AT THIS TIME. CL IN REACH, WILL CTM
[2019-01-12 20:00] VITALS: BP 129/90
[2019-01-13 01:10] VITALS: BP 139/73
[2019-01-13 05:12] VITALS: BP 149/75
[2019-01-13 06:51] LABS: BASOPHILS 0.4 % (0-2); EOSINOPHILS 0.8 % (0-7); HEMOGLOBIN 11.1 g/dL (12-16); IMMATURE GRANULOCYTES 0.2 % (0-5); LYMPHOCYTES 16.2 % (15-50); MCH 27.1 pg (26.0-34.0); MCHC 30.8 g/dL (31.0-37.0); MEAN PLATELET VOLUME 10.8 fL (7.4-10.4); MONOCYTES 7.8 % (2-11); NEUTROPHILS 74.6 % (40-80); PLATELET COUNT 220 10x3/uL (130-400); RBC 4.09 10x6/uL (4.00-5.40); RDW 13.5 % (11.5-14.5); WBC 5.1 10x3/uL (4.8-10.8)
[2019-01-13 07:13] LABS: ALBUMIN 2.8 g/dL (3.4-5.0); ALKALINE PHOSPHATASE 93 U/L (46-116); ALT (SGPT) 83 U/L (10-68); BILIRUBIN - TOTAL 0.55 mg/dL (0.2-1.3); CALC OSMOLALITY 280 mosm/kg (275-300); CALCIUM 9.8 mg/dL (8.5-10.1); CARBON DIOXIDE 29.9 mmol/L (21.0-32.0); CHLORIDE - SERUM 106 mmol/L (98-107); CREATININE - SERUM 0.7 mg/dL (0.6-1.3); GLUCOSE 94 mg/dL (74-106); POTASSIUM - SERUM 4.2 mmol/L (3.5-5.1); PROTEIN - SERUM 6.5 g/dL (6.4-8.2); SODIUM 141 mmol/L (136-145); UREA NITROGEN 13 mg/dL (7-18); eGFR NON AFRICAN AMERICAN 85 mL/min (90-120)
[2019-01-13 08:08] VITALS: BP 186/79
--- NOTE | 2019-01-13 09:00 | NUR ---
ASSESSMENT PER FLOW SHEET. PT IS WITHOUT DISTRESS.SHE DENIES NEEDS AT PRESENT.MONITOR FOR NEEDS.CALL LIGHT IN REACH
[2019-01-13 11:20] VITALS: BP 136/67
--- NOTE | 2019-01-13 12:00 | NUR ---
HAS HAD BATH AND IS RESTING
[2019-01-13 16:29] VITALS: BP 114/74
--- NOTE | 2019-01-13 19:18 | NUR ---
PT IS WITHOUT CHANGE FROM INITIAL SHIFT ASSESSMENT.CONT PLAN OF CARE
[2019-01-13 21:27] VITALS: BP 130/61
--- NOTE | 2019-01-13 22:28 | NUR ---
A&O X 4. REPORTS PAIN TO RUE. SOME SWELLING NOTED WELL. AMBULATES W/O ISSUE, STANDBY ASSIST. DENIES NEEDS AT THIS TIME, WILL CONTINUE TO MONITOR.
[2019-01-14 00:42] VITALS: BP 147/74
--- NOTE | 2019-01-14 03:47 | NUR ---
I have reviewed this patient and I concur with the Shift Assessment completed by the Licensed Practical Nurse today this shift.
[2019-01-14 07:10] LABS: BASOPHILS 0.4 % (0-2); EOSINOPHILS 3.1 % (0-7); HEMATOCRIT 35.7 % (36.0-48.0); HEMOGLOBIN 10.9 g/dL (12-16); IMMATURE GRANULOCYTES 0.2 % (0-5); LYMPHOCYTES 19.4 % (15-50); MCH 26.9 pg (26.0-34.0); MCHC 30.5 g/dL (31.0-37.0); MCV 88.1 fL (80.0-100.0); MONOCYTES 8.1 % (2-11); NEUTROPHILS 68.8 % (40-80); PLATELET COUNT 199 10x3/uL (130-400); RBC 4.05 10x6/uL (4.00-5.40); RDW 13.9 % (11.5-14.5); WBC 5.2 10x3/uL (4.8-10.8)
[2019-01-14 07:20] LABS: ALBUMIN 2.8 g/dL (3.4-5.0); ALKALINE PHOSPHATASE 93 U/L (46-116); ALT (SGPT) 71 U/L (10-68); BILIRUBIN - TOTAL 0.33 mg/dL (0.2-1.3); CALC OSMOLALITY 278 mosm/kg (275-300); CALCIUM 9.3 mg/dL (8.5-10.1); CARBON DIOXIDE 27.6 mmol/L (21.0-32.0); CHLORIDE - SERUM 106 mmol/L (98-107); GLUCOSE 88 mg/dL (74-106); POTASSIUM - SERUM 4.6 mmol/L (3.5-5.1); PROTEIN - SERUM 5.8 g/dL (6.4-8.2); SODIUM 140 mmol/L (136-145); UREA NITROGEN 16 mg/dL (7-18)
[2019-01-14 07:21] LABS: CREATININE - SERUM 0.5 mg/dL (0.6-1.3); eGFR NON AFRICAN AMERICAN > 90 mL/min (90-120)
[2019-01-14 08:12] VITALS: BP 182/81
--- NOTE | 2019-01-14 08:45 | NUR ---
PATIENT IN BED WITH IV INTACT. NO COMPLAINTS OR SIGNS OF DISTRESS. PORT ACCESSED BUT HAS NOT BEEN USED. NO ORDERS TO USE PORT. CALL LIGHT WITHIN REACH.
[2019-01-14] MEDS ORDERED: MIRALAX17 GM PO (12:19)
[2019-01-14] MEDS ORDERED: DURAGESIC1 PATCH .4 TRANSDERM (12:20)
[2019-01-14] MEDS ORDERED: HYDROCODON-ACE1 EAC7 PO (12:20)
--- NOTE | 2019-01-14 13:00 | NUR ---
PATIENT SITTING UP IN CHAIR WITH NO COMPLAINTSOR SIGNS OF DISTRESS. IV INTACT. NO COMPLAINTS. CALL LIGHT WITHIN REACH.
[2019-01-14 13:26] VITALS: BP 164/88
--- NOTE | 2019-01-14 14:10 | MORECARE ---
CASE MANAGEMENT DISCHARGE SUMMARY PATIENT: LYLE VILLA UNIT: [id number] ADM DATE: 01/10/19 AGE: 78 : 38 SEX: F ROOM/BED: D.2223 AUTHOR: BRIDGETTE CHI PHYSICIAN: REFERRING PHYSICIAN: NANCY CORONADO DO DATE OF SERVICE: 01/14/19 Discharge Plan Patient Name: LYLE VILLA Facility: [facility]:[place] : 1940 Planned Disposition: Home Anticipated Discharge Date: 01/12/19 Discharge Date: Expected LOS: 2 Initial Reviewer: [email or web address] Initial Review Date: 01/10/2019 Generated: 01/14/19 3:10 pm Comments DCP- Discharge Planning Updated by [id number]: Taryn Zavala on 01/14/19 1:[address] Patient Name: LYLE VILLA Encounter No: [id number] : 1940 Primary Insurance: [employer] CHOICE PPO MCR ADVANT Anticipated DC Date: 01-12-2019 Planned Disposition: Home External Planned Provider: : DCP follow-up note: Patient in agreement with discharge plan. States she will call her daughter to pick her up. No changes to plan. Case management will follow and assist as needed. Taryn Zavala DCP- Discharge Planning Updated by [email or web address]: Isabell Monsalve on 01/10/19 11:[address] DC PLAN: Return home alone. ANTICIPATED DC NEEDS: Denied dc needs at time of assessment. CM met with patient and her daughter Naomi to complete initial dc planning assessment. CM educated patient on the CM role and verbal consent given by patient to complete assessment. CM verified patient's address, phone number, and emergency contact phone numbers. Patient lives at home alone and her daughter lives next door. At discharge patient plans to return home and feels this is a safe discharge. CM discussed availability of home health, rehab services, and medical equipment. Patient denied known discharge needs at this time. Dr. Hardin is her oncologist. She has been taking Ultram for the pain but it is not helping. The pain is to her Right arm. Transportation provider at discharge will be her daughter Naomi . CM will continue to follow and will assist as needed with dc plans/needs. Isabell Monsalve RN, [facility] DCPIA - Discharge Planning Initial Assessment Updated by [email or web address]: Isabell Monsalve on 01/10/19 12:10 pm * Is the patient Alert and Oriented? Yes * How many steps to enter\exit or inside your home? * PCP Dr. Coronado * Pharmacy [facility] in [place] * Preadmission Environment Home Alone * ADLs Independent * Equipment Cane Rolling Walker * List name and contact numbers for known caregivers / representatives who currently or will assist patient after discharge: Naomi Pinon - daughter - [phone] * Verbal permission to speak to the caregivers and representatives has been obtained from the patient. Yes * Community resources currently utilized None * Additional services required to return to the preadmission environment? No * Can the patient safely return to the preadmission environment? Yes * Has this patient been hospitalized within the prior 30 days at any hospital? No Coverage Notice Reviewer: [email or web address] Riccardo Zavala Notice Issued Date-Time: 01/14/2019 13:58 Notice Type: IM Discharge Notice Notice Delivered To: Patient Relationship to Patient: Self Fisher Swordfish Name: Delivery Method: HAND - Hand Delivered Keshia Days: Prior Verbal Notification: Recipient Understood Notice: Yes Recipient Signature: Yes Med Rec Note Co-signed by Attending: Coverage Notice Comment: IMM explained, signed with an X (states too painful to write her name), given, copy placed in MR Last DP export: 01/10/19 11:17 Patient Name: LYLE VILLA Page [id number] at 1410 All edits/amendments must be made on the electronic document DICTATION DATE: 01/14/191409 REGIONAL EHS MANAGER: SIMON 01/14/191409 RPT#: [id number] DC DATE: STATUS: ADM IN [facility] [address] [place] [address] END OF REPORT
--- NOTE | 2019-01-14 15:30 | NUR ---
PATIENT RECIEVED DC INSTRUCTIONS. VERBALIZED UNDERSTANDING. O QUESTIONS AT THIS TIME. IV REMOVED WITH CATH TIP INACT. PORT STILL ACCESSED. HAS NOT BEEN USED. WILL SEE DR. RÍOS IN 2 DAYS. FAMILY AT BEDSIDE. PRESCRIPTIONS GIVEN TO MICHELLE. CALL LIGHT WITHIN REACH.
--- NOTE | 2019-01-15 11:33 | MORECARE ---
CASE MANAGEMENT DISCHARGE SUMMARY PATIENT: LYLE VILLA UNIT: [id number] ADM DATE: 01/10/19 AGE: 78 : 38 SEX: F ROOM/BED: D.2223 AUTHOR: BRIDGETTE CHI PHYSICIAN: REFERRING PHYSICIAN: NANCY CORONADO DO DATE OF SERVICE: 01/15/19 Discharge Plan Patient Name: LYLE VILLA Facility: [facility]:[place] : 1940 Planned Disposition: Home Anticipated Discharge Date: 01/12/19 Discharge Date: 01/14/2019 Expected LOS: 2 Initial Reviewer: [email or web address] Initial Review Date: 01/10/2019 Generated: 01/15/19 12:33 pm Comments DCP- Discharge Planning Updated by [email or web address]: Taryn Zavaal on 01/14/19 1:[address] Patient Name: LYLE VILLA Encounter No: [id number] : 1940 Primary Insurance: [employer] CHOICE PPO MCR ADVANT Anticipated DC Date: 01-12-2019 Planned Disposition: Home External Planned Provider: : DCP follow-up note: Patient in agreement with discharge plan. States she will call her daughter to pick her up. No changes to plan. Case management will follow and assist as needed. Taryn Lucas DCP- Discharge Planning Updated by [email or web address]: Isabell Monsalve on 01/10/19 11:[address] DC PLAN: Return home alone. ANTICIPATED DC NEEDS: Denied dc needs at time of assessment. CM met with patient and her daughter Naomi to complete initial dc planning assessment. CM educated patient on the CM role and verbal consent given by patient to complete assessment. CM verified patient's address, phone number, and emergency contact phone numbers. Patient lives at home alone and her daughter lives next door. At discharge patient plans to return home and feels this is a safe discharge. CM discussed availability of home health, rehab services, and medical equipment. Patient denied known discharge needs at this time. Dr. Hardin is her oncologist. She has been taking Ultram for the pain but it is not helping. The pain is to her Right arm. Transportation provider at discharge will be her daughter Naomi . CM will continue to follow and will assist as needed with dc plans/needs. Isabell Monsalve RN, [facility] DCPIA - Discharge Planning Initial Assessment Updated by [email or web address]: Isabell Monsalve on 01/10/19 12:10 pm * Is the patient Alert and Oriented? Yes * How many steps to enter\exit or inside your home? * PCP Dr. Coronado * Pharmacy [facility] in [place] * Preadmission Environment Home Alone * ADLs Independent * Equipment Cane Rolling Walker * List name and contact numbers for known caregivers / representatives who currently or will assist patient after discharge: Naomi Pinon - daughter - [phone] * Verbal permission to speak to the caregivers and representatives has been obtained from the patient. Yes * Community resources currently utilized None * Additional services required to return to the preadmission environment? No * Can the patient safely return to the preadmission environment? Yes * Has this patient been hospitalized within the prior 30 days at any hospital? No Coverage Notice Reviewer: [email or web address] Riccardo Zavala Notice Issued Date-Time: 01/14/2019 13:58 Notice Type: IM Discharge Notice Notice Delivered To: Patient Relationship to Patient: Self Steeler Name: Delivery Method: HAND - Hand Delivered Keshia Days: Prior Verbal Notification: Recipient Understood Notice: Yes Recipient Signature: Yes Med Rec Note Co-signed by Attending: Coverage Notice Comment: IMM explained, signed with an X (states too painful to write her name), given, copy placed in MR Last DP export: 01/14/19 1:10 p Patient Name: LYLE VILLA Page [id number] at 1133 All edits/amendments must be made on the electronic document DICTATION DATE: 01/15/19 1133 WAREHOUSE MAN: SIMON 01/15/19 1133 RPT#: [id number] DC DATE:01/14/19 STATUS: DIS IN [facility] [address] [place] [address] END OF REPORT
--- NOTE | 2019-01-15 14:24 | NUR ---
OT NOTE(LATE ENTRY FOR 01/14/19).. PT PERFORMED WELL TODAY. IN ROOM AMBULATION WITH CGA WITHOUT USE OF AD. TRANSFERS INCLUDING BED, CHAIR , AND TOILET IWTH CGA. AMB THROUGH HALLWAY WITH CGA AND ASSIST FOR IV AND 02 X 250 FT . PT CONT WITH C/O SEVERE PAIN IN R UE AND NECK. ABLE TO ADÁN SOCKS AND GOWN WITH SET UP. SIMPLE GROOMING AND TOILET WITH SPV PERNELL DUMONT, OTR/L
[2019-01-24 11:50] VITALS: Ht 180.3 cm; Wt 81.2 kg
== END 2019-01-14 15:43 | disposition home or self-care (01) | DRG 948 ==
LOC: D.ER 10:12 → D.MS 11:52
PROVIDERS: Family Medicine; Surgery; ADMIT Family Medicine; ATTEND Family Medicine
PROC: 05HM33Z Insertion of Infusion Device into Right Internal Jugular Vein, Percutaneous Approach (ICD-10-PCS; 2019-01-12)
PROC: B513ZZA Fluoroscopy of Right Jugular Veins, Guidance (ICD-10-PCS; 2019-01-12)
PROC: 0JH63XZ Insertion of Tunneled Vascular Access Device into Chest Subcutaneous Tissue and Fascia, Percutaneous Approach (ICD-10-PCS; principal; 2019-01-12 11:00)
DX: G89.3 Neoplasm related pain (acute) (chronic) (principal); C77.3 Secondary and unspecified malignant neoplasm of axilla and upper limb lymph nodes; I10 Essential (primary) hypertension; C43.61 Malignant melanoma of right upper limb, including shoulder; E66.9 Obesity, unspecified; Z68.24 Body mass index [BMI] 24.0-24.9, adult; E83.52 Hypercalcemia; R06.09 Other forms of dyspnea; R22.31 Localized swelling, mass and lump, right upper limb; M79.601 Pain in right arm

== ENCOUNTER 2019-02-18 09:15 | Inpatient (IN) | payer MEDICARE ==
[~2019-02-18] VITALS: Ht 180.3 cm; Wt 74.4 kg
[~2019-02-18 09:15] MED LIST changes: +DURAGESIC1 PATCH .4 TRANSDERM; +HYDROCODON-ACE1 EAC7 PO; +MIRALAX17 GM PO
[2019-02-18 10:02] LABS: BASOPHILS 0.2 % (0-2); EOSINOPHILS 0.2 % (0-7); HEMOGLOBIN 11.8 g/dL (12-16); IMMATURE GRANULOCYTES 0.2 % (0-5); LYMPHOCYTES 6.1 % (15-50); MCH 26.2 pg (26.0-34.0); MCHC 31.9 g/dL (31.0-37.0); MONOCYTES 6.5 % (2-11); NEUTROPHILS 86.8 % (40-80); PLATELET COUNT 240 10x3/uL (130-400); RBC 4.51 10x6/uL (4.00-5.40); RDW 14.1 % (11.5-14.5)
--- NOTE | 2019-02-18 10:03 | NUR ---
PTS PORT ACCESSED, WITH 19 GAUGE 1 INCH UGARTE. PT DIANE. WELL. IV OF NS BOLUS INFUSING.
[2019-02-18 10:19] LABS: APPEARANCE HAZY (CLEAR); BILIRUBIN NEGATIVE (NEGATIVE); COLOR YELLOW (YELLOW); GLUCOSE NEGATIVE (NEGATIVE); KETONE SMALL mg/dL (NEGATIVE); NITRITE NEGATIVE (NEGATIVE); PROTEIN NEGATIVE (NEGATIVE); SPECIFIC GRAVITY 1.015 (1.005-1.020); UROBILINOGEN NORMAL (NORMAL); WHITE CELLS - URINE 0-5 /hpf (NEGATIVE)
[2019-02-18 10:20] LABS: EPITHELIAL CELLS 0-5 /hpf (0-5); RED CELLS - URINE OCC /hpf (0-5)
[2019-02-18 10:21] LABS: BACTERIA FEW /hpf (NEGATIVE); GRANULAR CAST RARE /lpf (NONE SEEN); HYALINE CAST OCC /lpf (NONE SEEN); MUCUS <1+ /lpf (NONE SEEN)
[2019-02-18 10:35] LABS: ANION GAP 10.1 mmol/L (8-16); CARBON DIOXIDE 26.5 mmol/L (21.0-32.0); CREATININE - SERUM 0.9 mg/dL (0.6-1.3); POTASSIUM - SERUM 3.6 mmol/L (3.5-5.1); PROTEIN - SERUM 6.8 g/dL (6.4-8.2)
[2019-02-18 10:38] LABS: CALCIUM 13.4 mg/dL (8.5-10.1)
--- NOTE | 2019-02-18 10:39 | NUR ---
NOTIFIED BY LAB OF ELEVATED CALCIUM OF 13.4 EDP NOTIFIED.
--- NOTE | 2019-02-18 11:20 | NUR ---
2ND BOLUS GOING IN .
--- NOTE | 2019-02-18 11:23 | NUR ---
RESP . CALLED WITH RESULTS OF CALCIUM 1.78
[2019-02-18 11:59] VITALS: BP 111/58
--- NOTE | 2019-02-18 12:00 | NUR ---
REPORT CALLED TO SUBHASH ON MED 1 , ROOM IS DIRTY, STATES HE WILL CALL BACK WHEN IT IS CLEAN.
--- NOTE | 2019-02-18 13:43 | MORECARE ---
CASE MANAGEMENT DISCHARGE SUMMARY PATIENT: LYLE VILLA UNIT: [id number] ADM DATE: 02/18/19 AGE: 78 : 38 SEX: F ROOM/BED: D.2236 AUTHOR: BRIDGETTE CHI PHYSICIAN: REFERRING PHYSICIAN: VETO MARION MD DATE OF SERVICE: 02/18/19 Discharge Plan Patient Name: LYLE VILLA [facility] [facility] 1940 Planned Disposition: Home Anticipated Discharge Date: 02/21/19 Discharge Date: Expected LOS: 3 Initial Reviewer: [email or web address] Initial Review Date: 02/18/2019 Generated: 02/18/19 2:42 pm DCPIA - Discharge Planning Initial Assessment Updated by [email or web address]: Isabell Monsalve on 02/18/19 1:38 pm * Is the patient Alert and Oriented? Yes * How many steps to enter\exit or inside your home? * PCP Dr. Bryan * Pharmacy [facility] * Preadmission Environment Home Alone * ADLs Independent * Equipment Cane Rolling Walker Wheelchair * List name and contact numbers for known caregivers / representatives who currently or will assist patient after discharge: Naomi Pinon - daughter - [phone] * Verbal permission to speak to the caregivers and representatives has been obtained from the patient. Yes * Community resources currently utilized None * Additional services required to return to the preadmission environment? No * Can the patient safely return to the preadmission environment? Yes * Has this patient been hospitalized within the prior 30 days at any hospital? No Patient Name: LYLE VILLA Page [id number] at 1343 All edits/amendments must be made on the electronic document DICTATION DATE: 02/18/19 1343 FUEL AGENT: SIMON 02/18/19 1343 RPT#: [id number] DC DATE: STATUS: ADM IN [facility] [address] [place] [address] END OF REPORT
[2019-02-18 13:55] VITALS: BP 140/72; BMI 22.9
--- NOTE | 2019-02-18 14:01 | MORECARE ---
CASE MANAGEMENT DISCHARGE SUMMARY PATIENT: LYLE VILLA UNIT: [id number] ADM DATE: 02/18/19 AGE: 78 : 38 SEX: F ROOM/BED: D.2236 AUTHOR: ALON,DOC PHYSICIAN: REFERRING PHYSICIAN: VETO MARION MD DATE OF SERVICE: 02/18/19 Discharge Plan Patient Name: LYLE VILLA Facility: [facility]:[place] : 1940 Planned Disposition: Home Anticipated Discharge Date: 02/21/19 Discharge Date: Expected LOS: 3 Initial Reviewer: [email or web address] Initial Review Date: 02/18/2019 Generated: 02/18/19 3:01 pm DCP- Discharge Planning Updated by [email or web address]: Isabell Monsalve on 02/18/19 12:[address] DC PLAN: Return home independently. Daughter lives next door. ANTICIPATED DC NEEDS: Unknown dc needs. CM met with patient to complete initial dc planning assessment. CM educated patient on the CM role and verbal consent given by patient to complete assessment. CM verified patient's address, phone number, and emergency contact phone numbers. Patient lives at home alone and reports she is independent in her care at home. She reports her daughter lives next to her on her property. At discharge patient plans to return home alone and feels this is a safe discharge. CM discussed availability of home health, rehab services, and medical equipment. Patient denied known discharge needs at this time. She stated we could revisit dc needs with her closer to when she is discharged. Transportation provider at discharge will be her daughter. CM will continue to follow and will assist as needed with dc plans/needs. Isabell Monsalve RN, [facility] DCPIA - Discharge Planning Initial Assessment Updated by [id number]: Isabell Monsalve on 02/18/19 1:38 pm * Is the patient Alert and Oriented? Yes * How many steps to enter\exit or inside your home? * PCP Dr. Bryan * Pharmacy [facility] * Preadmission Environment Home Alone * ADLs Independent * Equipment Cane Rolling Walker Wheelchair * List name and contact numbers for known caregivers / representatives who currently or will assist patient after discharge: Naomi Pinon - daughter - [phone] * Verbal permission to speak to the caregivers and representatives has been obtained from the patient. Yes * Community resources currently utilized None * Additional services required to return to the preadmission environment? No * Can the patient safely return to the preadmission environment? Yes * Has this patient been hospitalized within the prior 30 days at any hospital? No Last DP export: 02/18/19 12:43 p Patient Name: LYLE VILLA Page [id number] at 1401 All edits/amendments must be made on the electronic document DICTATION DATE: 02/18/19 140 SEROLOGY TEACHER: SIMON 02/18/191 RPT#: [id number] DC DATE: STATUS: ADM IN [facility] [address] [place] [address] END OF REPORT
--- NOTE | 2019-02-18 16:38 | MORECARE ---
CASE MANAGEMENT DISCHARGE SUMMARY PATIENT: LYLE VILLA UNIT: [id number] ADM DATE: 02/18/19 AGE: 78 : 38 SEX: F ROOM/BED: D.2236 AUTHOR: BRIDGETTE CHI PHYSICIAN: REFERRING PHYSICIAN: VETO MARION MD DATE OF SERVICE: 02/18/19 Discharge Plan Patient Name: LYLE VILLA Facility: [facility]:[place] : 1940 Planned Disposition: Home Anticipated Discharge Date: 02/21/19 Discharge Date: Expected LOS: 3 Initial Reviewer: [email or web address] Initial Review Date: 02/18/2019 Generated: 02/18/19 5:38 pm Comments DCP- Discharge Planning Updated by [email or web address]: Ofelia Marquez on 02/18/19 3:[address] RECEIVED A CALL FROM [facility] WITH [facility] AND SHE STATED THAT SHE HAS BEEN FOLLOWING THIS PATIENT AND SHE MET WITH HER THIS PAST THURSDAY. THE DAUGHTER WAS QUESTIONING METS TO BRAIN? DCP- Discharge Planning Updated by [email or web address]: Isabell Monsalve on 02/18/19 12:[address] DC PLAN: Return home independently. Daughter lives next door. ANTICIPATED DC NEEDS: Unknown dc needs. CM met with patient to complete initial dc planning assessment. CM educated patient on the CM role and verbal consent given by patient to complete assessment. CM verified patient's address, phone number, and emergency contact phone numbers. Patient lives at home alone and reports she is independent in her care at home. She reports her daughter lives next to her on her property. At discharge patient plans to return home alone and feels this is a safe discharge. CM discussed availability of home health, rehab services, and medical equipment. Patient denied known discharge needs at this time. She stated we could revisit dc needs with her closer to when she is discharged. Transportation provider at discharge will be her daughter. CM will continue to follow and will assist as needed with dc plans/needs. Isabell Monsalve RN, [facility] DCPIA - Discharge Planning Initial Assessment Updated by [id number]: Isaebll Monsalve on 02/18/19 1:38 pm * Is the patient Alert and Oriented? Yes * How many steps to enter\exit or inside your home? * PCP Dr. Bryan * Pharmacy [facility] * Preadmission Environment Home Alone * ADLs Independent * Equipment Cane Rolling Walker Wheelchair * List name and contact numbers for known caregivers / representatives who currently or will assist patient after discharge: Naomi Pinon - daughter - [phone] * Verbal permission to speak to the caregivers and representatives has been obtained from the patient. Yes * Community resources currently utilized None * Additional services required to return to the preadmission environment? No * Can the patient safely return to the preadmission environment? Yes * Has this patient been hospitalized within the prior 30 days at any hospital? No Last DP export: 02/18/19 1:01 p Patient Name: LYLE VILLA Page [phone] at 1638 All edits/amendments must be made on the electronic document DICTATION DATE: 02/18/191637 HOISTER: SIMON 02/18/191637 RPT#: [id number] DC DATE: STATUS: ADM IN [facility] [address] [place] [address] END OF REPORT
--- NOTE | 2019-02-18 19:00 | NUR ---
BEDSIDE REPORT RECEIVED AND CARE OF PT ASSUMED. PT LYING IN SUPINE POSITION WITH EYES CLOSED. RIGHT IP ACCESSED WITH NS INFUSING A 125 ML/HR. RIGHT ARM VERY SWOLLEN...RESERVE PER ORDER. PT HAS BRIGHT RED YEAST INFECTED AREA UNDER RIGHT BREAST. WILL MONITOR FOR NEEDS.
--- NOTE | 2019-02-18 20:30 | NUR ---
PLACED ALL FALL PRECAUTIONS: YELLOW GOWN AND NOT SKID SOCKS AND ANDRÉS BED ALARM. SCD'S PLACED ON BLE PER ORDER.
--- NOTE | 2019-02-18 20:37 | NUR ---
HS MEDICATIONS GIVEN.
[2019-02-18 21:00] VITALS: BP 118/54
[2019-02-19 00:16] VITALS: BP 110/52
--- NOTE | 2019-02-19 00:20 | NUR ---
APPLIED BABY POWDER TO REDNESS UNDER RIGHT BREAST. RECEIVED ORDER FOR NYSTATAN POWDER TO BE APPLIED TID STARTING AM.
[2019-02-19 05:07] VITALS: BP 154/76
[2019-02-19 05:55] LABS: BASOPHILS 0 % (0-2); EOSINOPHILS 0 % (0-7); HEMATOCRIT 33.3 % (36.0-48.0); HEMOGLOBIN 10.4 g/dL (12-16); IMMATURE GRANULOCYTES 0.1 % (0-5); LYMPHOCYTES 8.1 % (15-50); MCH 26.1 pg (26.0-34.0); MCHC 31.2 g/dL (31.0-37.0); MCV 83.5 fL (80.0-100.0); MEAN PLATELET VOLUME 9.8 fL (7.4-10.4); MONOCYTES 3.4 % (2-11); NEUTROPHILS 88.4 % (40-80); PLATELET COUNT 216 10x3/uL (130-400); RBC 3.99 10x6/uL (4.00-5.40); RDW 14.3 % (11.5-14.5)
[2019-02-19 06:35] LABS: CALC OSMOLALITY 284 mosm/kg (275-300); CALCIUM 10.8 mg/dL (8.5-10.1); CHLORIDE - SERUM 106 mmol/L (98-107); CREATININE - SERUM 0.7 mg/dL (0.6-1.3); GLUCOSE 119 mg/dL (74-106); POTASSIUM - SERUM 4.4 mmol/L (3.5-5.1); SODIUM 141 mmol/L (136-145); UREA NITROGEN 21 mg/dL (7-18); eGFR NON AFRICAN AMERICAN 85 mL/min (90-120)
--- NOTE | 2019-02-19 08:00 | NUR ---
ALERT AND ORIENTED X4. EDEMA NOTED TO RT ARM AND ELEVATED WITH LIMITED ROM. NYSTATIN POWDER PLACED UNDER RT. BREAST PER ORDER. FALL PRECAUTIONS IN PLACE. LUNGS CTA WITH NO PERIPHERAL EDEMA NOTED WITH SCD'S IN PLACE. INFUSAPORT TO RIGHT UPPER CHEST INFUSING AT PRESCRIBED RATE. ENCOURAGED TO USE CALL LIGHT FOR ASSIST.
[2019-02-19 08:46] VITALS: BP 153/65
--- NOTE | 2019-02-19 11:00 | NUR ---
PT UP AMBULATING WITH THERAPY WITH R/WALKER WITH SBA.
[2019-02-19 12:18] VITALS: Ht 180.3 cm; Wt 74.4 kg
[2019-02-19 12:45] VITALS: BP 145/77
[2019-02-19 18:02] VITALS: BP 112/69
--- NOTE | 2019-02-19 19:00 | NUR ---
BEDSIDE REPORT RECEIVED AND CARE OF PT ASSUMED. PT LYING IN LOW CUELLAR'S POSITION WATCHING TV. RIGHT IP ACCESSED WITH NS INFUSINGA T 125 ML/HR. RIGHT ARM RESERVED...AND STILL VERY SWOLLEN AND TENDER TO TOUCH. WILL MONITOR FOR NEEDS.
[2019-02-19 19:41] VITALS: BP 127/70
--- NOTE | 2019-02-19 20:09 | NUR ---
HS MEDICATIONS GIVEN. WILL CONTINUE TO MONITOR FOR NEEDS.
--- NOTE | 2019-02-19 21:17 | NUR ---
GAVE MORPHINE 2 MG IVP PER PT REQUEST FOR C/O PAIN IN RIGHT ARM. WILL MONITOR FOR EFFECTIVENESS.
--- NOTE | 2019-02-19 23:26 | NUR ---
PT RESTING IN LOW CUELLAR'S POSITION WITH EYES CLOSED. WILL CONTINUE TO MONITOR FOR NEEDS.
[2019-02-20 00:42] VITALS: BP 122/68
[2019-02-20 04:48] VITALS: BP 124/68
[2019-02-20 05:44] LABS: BASOPHILS 0 % (0-2); EOSINOPHILS 0 % (0-7); HEMATOCRIT 33.5 % (36.0-48.0); HEMOGLOBIN 10.4 g/dL (12-16); IMMATURE GRANULOCYTES 0.2 % (0-5); LYMPHOCYTES 6.2 % (15-50); MCH 26.1 pg (26.0-34.0); MEAN PLATELET VOLUME 9.8 fL (7.4-10.4); MONOCYTES 4.9 % (2-11); NEUTROPHILS 88.7 % (40-80); PLATELET COUNT 233 10x3/uL (130-400); RBC 3.99 10x6/uL (4.00-5.40); RDW 14.7 % (11.5-14.5); WBC 8.1 10x3/uL (4.8-10.8)
[2019-02-20 06:16] LABS: CALC OSMOLALITY 284 mosm/kg (275-300); CALCIUM 10.8 mg/dL (8.5-10.1); CARBON DIOXIDE 25.5 mmol/L (21.0-32.0); CHLORIDE - SERUM 108 mmol/L (98-107); CREATININE - SERUM 0.5 mg/dL (0.6-1.3); GLUCOSE 124 mg/dL (74-106); POTASSIUM - SERUM 4.3 mmol/L (3.5-5.1); SODIUM 141 mmol/L (136-145); UREA NITROGEN 20 mg/dL (7-18); eGFR NON AFRICAN AMERICAN > 90 mL/min (90-120)
--- NOTE | 2019-02-20 08:00 | NUR ---
ALERT AND ORIENTED X4 WITH LIMITED ROM TO LT. ARM WITH EDEMA NOTED WITH ERYTHEMA WITH RADIAL PULSE NOTED. ASSISTED WITH BATH WITH NYSTATIN POWDER APPLIED UNDER RIGHT BREAST. UP WITH SBA WITH R/WALKER. DENIES ANY PAIN OR DISCOMFORT AT THIS TIME. FALL PRECAUTIONS IN PLACE AND ENCOURAGED TO USE CALL LIGHT FOR ASSSIT.
[2019-02-20 08:02] VITALS: BP 130/73
[2019-02-20] MEDS ORDERED: LEVOFLOXACIN500 MG PO (11:28)
[2019-02-20] MEDS ORDERED: PREDNISONE10 MG PO (11:28)
[2019-02-20 11:36] VITALS: BP 135/68
--- NOTE | 2019-02-20 13:25 | NUR ---
PORT DEACCESSED TO RIGHT UPPER CHEST WITH DRESSING APPLIED. VERBALIZED UNDERSTANDING OF DISCHARGE INSTRUCTIONS WITH VISITORS PRESENT. STABLE AT TIME OF DISCHARGE.
--- NOTE | 2019-02-20 16:26 | MORECARE ---
CASE MANAGEMENT DISCHARGE SUMMARY PATIENT: LYLE VILLA UNIT: [id number] ADM DATE: 02/18/19 AGE: 78 : 38 SEX: F ROOM/BED: D.2236 AUTHOR: BRIDGETTE CHI PHYSICIAN: REFERRING PHYSICIAN: VETO MARION MD DATE OF SERVICE: 02/20/19 Discharge Plan Patient Name: LYLE VILLA Facility: [facility]:[place] : 1940 Planned Disposition: Home Anticipated Discharge Date: 02/21/19 Discharge Date: 02/20/2019 Expected LOS: 3 Initial Reviewer: [email or web address] Initial Review Date: 02/18/2019 Generated: 02/20/19 5:25 pm Comments DCP- Discharge Planning Updated by [id number]: Ofelia Marquez on 02/18/19 3:[address] RECEIVED A CALL FROM THIAGO WITH [facility] AND SHE STATED THAT SHE HAS BEEN FOLLOWING THIS PATIENT AND SHE MET WITH HER THIS PAST THURSDAY. THE DAUGHTER WAS QUESTIONING METS TO BRAIN? DCP- Discharge Planning Updated by [id number]: Isabell Monsalve on 02/18/19 12:[address] DC PLAN: Return home independently. Daughter lives next door. ANTICIPATED DC NEEDS: Unknown dc needs. CM met with patient to complete initial dc planning assessment. CM educated patient on the CM role and verbal consent given by patient to complete assessment. CM verified patient's address, phone number, and emergency contact phone numbers. Patient lives at home alone and reports she is independent in her care at home. She reports her daughter lives next to her on her property. At discharge patient plans to return home alone and feels this is a safe discharge. CM discussed availability of home health, rehab services, and medical equipment. Patient denied known discharge needs at this time. She stated we could revisit dc needs with her closer to when she is discharged. Transportation provider at discharge will be her daughter. CM will continue to follow and will assist as needed with dc plans/needs. Isabell Monsalve RN, [facility] DCPIA - Discharge Planning Initial Assessment Updated by [id number]: Isabell Monsalve on 02/18/19 1:38 pm * Is the patient Alert and Oriented? Yes * How many steps to enter\exit or inside your home? * PCP Dr. Bryan * Pharmacy [facility] * Preadmission Environment Home Alone * ADLs Independent * Equipment Cane Rolling Walker Wheelchair * List name and contact numbers for known caregivers / representatives who currently or will assist patient after discharge: Naomi Pinon - daughter - [phone] * Verbal permission to speak to the caregivers and representatives has been obtained from the patient. Yes * Community resources currently utilized None * Additional services required to return to the preadmission environment? No * Can the patient safely return to the preadmission environment? Yes * Has this patient been hospitalized within the prior 30 days at any hospital? No Last DP export: 02/18/19 3:38 p Patient Name: LYLE VILLA Page [id number] at 1626 All edits/amendments must be made on the electronic document DICTATION DATE: 02/20/191624 FACILITY SECURITY OFFICER: SIMON 02/20/191624 RPT#: [id number] DC DATE:02/20/19 STATUS: DIS IN [facility] [address] [place] [address] END OF REPORT
== END 2019-02-20 13:25 | disposition home or self-care (01) | DRG 640 ==
LOC: D.ER 09:15 → D.MS 10:50
PROVIDERS: Emergency Medicine; ADMIT Internal Medicine Nephrology; ATTEND Internal Medicine Nephrology
DX: E87.1 Hypo-osmolality and hyponatremia (principal); E43 Unspecified severe protein-calorie malnutrition; R44.3 Hallucinations, unspecified; C77.9 Secondary and unspecified malignant neoplasm of lymph node, unspecified; N39.0 Urinary tract infection, site not specified; E86.0 Dehydration; E83.52 Hypercalcemia; G89.29 Other chronic pain; I10 Essential (primary) hypertension; F44.89 Other dissociative and conversion disorders; W19.XXXA Unspecified fall, initial encounter; C43.9 Malignant melanoma of skin, unspecified; D64.9 Anemia, unspecified; B95.1 Streptococcus, group B, as the cause of diseases classified elsewhere

== ENCOUNTER 2019-02-21 11:54 | Inpatient (IN) | payer MEDICARE ==
[~2019-02-21] VITALS: Ht 180.3 cm; Wt 74.9 kg
[~2019-02-21 11:54] MED LIST changes: +LEVOFLOXACIN500 MG PO; +PREDNISONE10 MG PO
[2019-02-21 13:19] LABS: BASOPHILS 0.1 % (0-2); EOSINOPHILS 1.2 % (0-7); HEMATOCRIT 34.6 % (36.0-48.0); HEMOGLOBIN 10.9 g/dL (12-16); IMMATURE GRANULOCYTES 0.1 % (0-5); LYMPHOCYTES 5.8 % (15-50); MCH 26.3 pg (26.0-34.0); MCHC 31.5 g/dL (31.0-37.0); MCV 83.4 fL (80.0-100.0); MEAN PLATELET VOLUME 9.6 fL (7.4-10.4); MONOCYTES 6.9 % (2-11); NEUTROPHILS 85.9 % (40-80); PLATELET COUNT 214 10x3/uL (130-400); RBC 4.15 10x6/uL (4.00-5.40); RDW 14.6 % (11.5-14.5); WBC 7.3 10x3/uL (4.8-10.8)
[2019-02-21 13:28] LABS: APTT 23.9 SECONDS (22.8-39.4); INR 1.11 (0.85-1.17); PROTIME 13.8 SECONDS (11.6-15.0)
[2019-02-21 13:29] LABS: APPEARANCE CLEAR (CLEAR); BILIRUBIN NEGATIVE (NEGATIVE); COLOR YELLOW (YELLOW); GLUCOSE NEGATIVE (NEGATIVE); KETONE NEGATIVE (NEGATIVE); NITRITE NEGATIVE (NEGATIVE); PROTEIN NEGATIVE (NEGATIVE); SPECIFIC GRAVITY 1.005 (1.005-1.020); UROBILINOGEN NORMAL (NORMAL)
[2019-02-21 13:34] LABS: CALC OSMOLALITY 280 mosm/kg (275-300); CALCIUM 10.6 mg/dL (8.5-10.1); CHLORIDE - SERUM 107 mmol/L (98-107); CREATININE - SERUM 0.6 mg/dL (0.6-1.3); GLUCOSE 98 mg/dL (74-106); POTASSIUM - SERUM 3.3 mmol/L (3.5-5.1); SODIUM 141 mmol/L (136-145); UREA NITROGEN 13 mg/dL (7-18); eGFR NON AFRICAN AMERICAN > 90 mL/min (90-120)
[2019-02-21 13:35] LABS: UDS - AMPHET NEGATIVE QUAL (NEGATIVE); UDS - BARB NEGATIVE QUAL (NEGATIVE); UDS - BENZO NEGATIVE QUAL (NEGATIVE); UDS - COCAINE NEGATIVE QUAL (NEGATIVE); UDS - OPIATE POSITIVE QUAL (NEGATIVE); UDS - PCP NEGATIVE QUAL (NEGATIVE); UDS - THC NEGATIVE QUAL (NEGATIVE)
[2019-02-21 13:50] LABS: ALBUMIN 2.6 g/dL (3.4-5.0); ALKALINE PHOSPHATASE 74 U/L (46-116); ALT (SGPT) 30 U/L (10-68); BILIRUBIN - TOTAL 0.92 mg/dL (0.2-1.3); CKMB 0.7 U/L (0.0-3.6); CREATINE KINASE 19 UL (21-215); MAGNESIUM - SERUM 1.2 mg/dL (1.8-2.4); PROTEIN - SERUM 5.9 g/dL (6.4-8.2); THYROID STIMULATING HORMONE 1.39 uIU/mL (0.36-3.74)
[2019-02-21 13:52] LABS: TROPONIN-I < 0.017 ng/mL (0.000-0.060)
--- NOTE | 2019-02-21 16:11 | NUR ---
RECIEVED FROM ER. NO SIGNS OF DISTRESS. IV TO RIGHT CHEST PORT PATENT NO REDNESS OR TENDERESS. DENIES ANY FURTHER NEED AT THIS TIME. CALL LIGHT IN REACH. BED LOW POSITION. FAMILY WAS AT BEDSIDE.
[2019-02-21 17:41] VITALS: BP 178/74; BMI 25.1
[2019-02-21 21:08] VITALS: BP 156/72
--- NOTE | 2019-02-21 21:30 | NUR ---
A/O WITH NO SIGNS OF ACUTE DISTRESS. RT CHEST PORT ACCESSED, DRESSING CDI. COMPLAINING OF 10/10 HEADACHE. PRN MEDS GIVEN. DENIES NO OTHER NEEDS AT THIS TIME. CONTINUE PLAN OF CARE.
[2019-02-22 01:05] VITALS: BP 128/65
[2019-02-22 04:38] VITALS: BP 138/65
[2019-02-22 07:11] LABS: BASOPHILS 0.2 % (0-2); EOSINOPHILS 1.9 % (0-7); HEMATOCRIT 34.2 % (36.0-48.0); HEMOGLOBIN 10.7 g/dL (12-16); IMMATURE GRANULOCYTES 0.2 % (0-5); LYMPHOCYTES 9.9 % (15-50); MCH 26.1 pg (26.0-34.0); MCHC 31.3 g/dL (31.0-37.0); MCV 83.4 fL (80.0-100.0); MONOCYTES 6.1 % (2-11); NEUTROPHILS 81.7 % (40-80); PLATELET COUNT 216 10x3/uL (130-400); RDW 14.6 % (11.5-14.5); WBC 6.4 10x3/uL (4.8-10.8)
[2019-02-22 07:14] LABS: ALBUMIN 2.4 g/dL (3.4-5.0); ALKALINE PHOSPHATASE 70 U/L (46-116); ALT (SGPT) 27 U/L (10-68); BILIRUBIN - TOTAL 0.89 mg/dL (0.2-1.3); CALC OSMOLALITY 276 mosm/kg (275-300); CALCIUM 9.5 mg/dL (8.5-10.1); CARBON DIOXIDE 24.5 mmol/L (21.0-32.0); CHLORIDE - SERUM 108 mmol/L (98-107); CREATININE - SERUM 0.6 mg/dL (0.6-1.3); GLUCOSE 84 mg/dL (74-106); POTASSIUM - SERUM 4.2 mmol/L (3.5-5.1); PROTEIN - SERUM 5.3 g/dL (6.4-8.2); SODIUM 140 mmol/L (136-145); UREA NITROGEN 11 mg/dL (7-18); eGFR NON AFRICAN AMERICAN > 90 mL/min (90-120)
--- NOTE | 2019-02-22 07:45 | NUR ---
ALERT AND ORIENTED. LUNGS CLEAR BILATERALLY. HEART SOUNDS S1 AND S2 HEARD IN ALL GOSS. BOWEL SOUNDS ACTIVE X 4. SKIN INTACT WITHOUT REDNESS. RIGHT CHEST PORT PATENT WITHOUT REDNESS. BED LOW. FALL PRECAUTIONS IN PLACE. CALL WHEATLEY AND PERSONAL ITEMS IN REACH. WILL CONTINUE TO MONITOR.
[2019-02-22 08:37] VITALS: BP 163/110
--- NOTE | 2019-02-22 12:18 | NUR ---
RESTING IN BED. DENIES NEEDS. WILL CONTINUE TO MONITOR.
[2019-02-22 13:27] VITALS: BP 121/62
--- NOTE | 2019-02-22 13:29 | NUR ---
CALLED PHARMACY FOR PATIENT'S IV FLUIDS.
[2019-02-22 13:38] VITALS: Ht 180.3 cm; Wt 74.9 kg
--- NOTE | 2019-02-22 13:42 | NUR ---
AUGIE IN PHARMACY REQUESINT MAGNESIUM REDRAW PRIOR TO HANGING FLUIDS WITH MAG AND POTASSIUM. SPOKE WITH FRANK FLOOD WHO STATES OK TO DRAW MAG. MAG DRAW ORDER PLACED.
--- NOTE | 2019-02-22 14:31 | NUR ---
SPOKE WITH FRANK FLOOD TO NOTIFY OF MAG 2.5 AND K 4.2. STATES WILL DC CURRENT FLUIDS WITH ELECTROLYTES AND ADD NS AT 50/HR. STATES TO PLACE ORDER FOR LAB DRAWS FOR POTASSIUM, MAGNESIUM, AND PHOSPHORUS WITH AM LABS TOMORROW. ORDER PLACED.
--- NOTE | 2019-02-22 14:49 | NUR ---
OT NOTE: PT COMPLETED BED MOB WITH SBA. PT COMPLETED ADL MOB WITH CGA. PT COMPLETED TOILETING AND TOILET HYGIENE TASKS WITH SBA. PT COMPLETED GARMENT MANAGEMENT WITH MENDY Levine THANK YOU,ELLIE JENSEN
--- NOTE | 2019-02-22 15:39 | NUR ---
RESTING IN BED. DENIES NEEDS. WILL CONTINUE TO MONITOR.
[2019-02-22 16:28] VITALS: BP 117/86
--- NOTE | 2019-02-22 18:05 | NUR ---
RESTING IN BED. DENIES NEEDS. LEFT CHEST PORT PATENT. BED LOW. CALL WHEATLEY AND PERSONAL ITEMS IN REACH.
--- NOTE | 2019-02-22 20:00 | NUR ---
A/O WITH NO SIGNS OF ACUTE DISTRESS. RT CHEST PORT ACCESS, DRESSING CDI. ANDRÉS ALARM ON. DEENIES NEEDS AT THIS TIME. CONTINUE PLAN OF CARE.
[2019-02-22 21:03] VITALS: BP 129/84
--- NOTE | 2019-02-23 00:51 | NUR ---
ASSISTED UP TO BATHROOM. UPON PROVIDING DELIA CARE BLOOD WAS FOUND. BLEEDING LUMP NOTED TO THE RT LABIA. FOUL ODER PRESENT WELL. COVERED AREA WITH BANDAID. WILL CONTINUE TO MONITOR.
[2019-02-23 01:21] VITALS: BP 164/88
[2019-02-23 05:06] VITALS: BP 139/65
[2019-02-23 05:55] LABS: BASOPHILS 0.1 % (0-2); HEMATOCRIT 34.2 % (36.0-48.0); HEMOGLOBIN 10.6 g/dL (12-16); IMMATURE GRANULOCYTES 0.3 % (0-5); LYMPHOCYTES 10.9 % (15-50); MONOCYTES 8.8 % (2-11); NEUTROPHILS 76.9 % (40-80); PLATELET COUNT 193 10x3/uL (130-400); RBC 4.07 10x6/uL (4.00-5.40); RDW 14.7 % (11.5-14.5); WBC 7.1 10x3/uL (4.8-10.8)
[2019-02-23 06:17] LABS: ALBUMIN 2.3 g/dL (3.4-5.0); ALKALINE PHOSPHATASE 69 U/L (46-116); ALT (SGPT) 24 U/L (10-68); CALC OSMOLALITY 277 mosm/kg (275-300); CALCIUM 9.2 mg/dL (8.5-10.1); CARBON DIOXIDE 23.8 mmol/L (21.0-32.0); CHLORIDE - SERUM 107 mmol/L (98-107); CREATININE - SERUM 0.5 mg/dL (0.6-1.3); GLUCOSE 97 mg/dL (74-106); PHOSPHOROUS 1.7 mg/dL (2.5-4.9); POTASSIUM - SERUM 4.2 mmol/L (3.5-5.1); PROTEIN - SERUM 5.1 g/dL (6.4-8.2); SODIUM 139 mmol/L (136-145); UREA NITROGEN 12 mg/dL (7-18); eGFR NON AFRICAN AMERICAN > 90 mL/min (90-120)
[2019-02-23 06:51] LABS: MAGNESIUM - SERUM 1.8 mg/dL (1.8-2.4)
[2019-02-23 08:20] VITALS: BP 130/52
--- NOTE | 2019-02-23 11:18 | NUR ---
Rehab Prescreening Consult recieved and the chart has been reviewed. She is [employer] managed Medicare and will require a preauth. All information will be submitted to them for a review. Discussed with the CM in the IDT meeting. Jenny Tan RN Clinical Liaison, Rehab
--- NOTE | 2019-02-23 12:30 | NUR ---
OT NOTE: BED MOB WITH CGA; AMB TO BATHROOM WITH WALKER AND CGA; TRANSFER TO TOILET WITH USE OF GRAB BARS; MIN/SBA FOR TOILET HYGIENE. AMB INTO HALLWAY WITH WALKER AND MIN ASSIST; TRANSFERRED TO CHAIR WITH MIN ASSIST; UE AROM EXS FOR STRENGTHENING. PT ABLE TO AMB WITH P.T APPROX 200 FT, HOWEVER, SHE IS WEAK AND CONT TO REQUIRE ASSIST WITH ADLS. PT WOULD BENEFIT FROM IP REHAB FOR STRENGTHENING AND ADL INDEP IN ORDER TO RETURN TO INDEP LIVING. PERNELL DUMONT, OTR/L
[2019-02-23 13:41] VITALS: BP 144/67
--- NOTE | 2019-02-23 16:08 | MORECARE ---
CASE MANAGEMENT DISCHARGE SUMMARY PATIENT: LYLE VILLA UNIT: [id number] ADM DATE: 02/21/19 AGE: 78 : 38 SEX: F ROOM/BED: D.[facility] AUTHOR: BRIDGETTE CHI PHYSICIAN: REFERRING PHYSICIAN: MARKEL NAPOLES MD DATE OF SERVICE: 02/23/19 Discharge Plan Patient Name: LYLE VILLA [facility] [facility] 1940 Planned Disposition: Inpatient Rehab Anticipated Discharge Date: Discharge Date: Expected LOS: Initial Reviewer: [email or web address] Initial Review Date: 02/23/2019 Generated: 02/23/19 5:08 pm DCPIA - Discharge Planning Initial Assessment Updated by [email or web address]: Taryn Zavala on 02/23/19 4:03 pm * Is the patient Alert and Oriented? Yes * Pharmacy Dr. Bryan * Preadmission Environment Home Alone * ADLs Partial Dependent * Partial ADLs (Assistance needed) Ambulation * Equipment Cane Rolling Walker Wheelchair * List name and contact numbers for known caregivers / representatives who currently or will assist patient after discharge: Naomi Pinon - DTR - [phone] * Verbal permission to speak to the caregivers and representatives has been obtained from the patient. Yes * Community resources currently utilized None * Additional services required to return to the preadmission environment? No * Can the patient safely return to the preadmission environment? Yes * Has this patient been hospitalized within the prior 30 days at any hospital? Yes Patient Name: LYLE VILLA Page [phone] at 1608 All edits/amendments must be made on the electronic document DICTATION DATE: 02/23/19 1608 MATHEMATICS IMPROVEMENT TEACHER: SIMON 02/23/19 1608 RPT#: [id number] DC DATE: STATUS: ADM IN [facility] [address] [place] [address] END OF REPORT
--- NOTE | 2019-02-23 16:19 | MORECARE ---
CASE MANAGEMENT DISCHARGE SUMMARY PATIENT: LYLE VILLA UNIT: [id number] ADM DATE: 02/21/19 AGE: 78 : 38 SEX: F ROOM/BED: D.2236 AUTHOR: BRIDGETTE CHI PHYSICIAN: REFERRING PHYSICIAN: MARKEL NAPOLES MD DATE OF SERVICE: 02/23/19 Discharge Plan Patient Name: LYLE VILLA Facility: [facility]:[place] : 1940 Planned Disposition: Inpatient Rehab Anticipated Discharge Date: Discharge Date: Expected LOS: Initial Reviewer: [email or web address] Initial Review Date: 02/23/2019 Generated: 02/23/19 5:19 pm Comments DCP- Discharge Planning Updated by [email or web address]: Taryn Zavala on 02/23/19 3:[address] I did discuss hospice with the patient and she states at this time, she does not want hospice. She states "some friends wanted me to do hospice, but Dr. Hardin doesn't want me to have hospice and I want to do what Dr. Hardin wants." CM will continue to follow and assist with discharge planning/needs. DCP- Discharge Planning Updated by [email or web address]: Taryn Zavala on 02/23/19 3:[address] Patient Name: LYLE VILLA Admission Status: Elective Accout number: [id number] Admission Date: 02-21-2019 : 1940 Admission Diagnosis:HYPOMAGNESEMIA Attending: SHAKIR NAPOLES Current LOS: 2 Anticipated DC Date: Planned Disposition: Inpatient Rehab Primary Insurance: [employer] CHOICE PPO MCR [facility] Discharge Planning Comments: CM met with patient to complete initial dc planning assessment. CM educated patient on the CM role and verbal consent given by patient to complete assessment. Patient lives at home alone. She states her ex grand daughter in law will be staying with her at night. At discharge patient states that her doctor states he is going to send her down to rehab. I informed her that her insurance will need to authorize inpatient rehab and they may recommend SNF or home health. She states she does not want to go to a SNF or have home health. She states once she is able to go home, she has plenty of help for her. She states her daughter lives on the same property as she does. I called and spoke with Jenny in inpatient rehab and she will submit clinical for insurance auth. CM discussed availability of home health, rehab services, and medical equipment. Patient denied known discharge needs at this time. CM will continue to follow and will assist as needed with dc plans/needs. Medical Assistant Prn: Taryn Zavala DCPIA - Discharge Planning Initial Assessment Updated by [id number]: Taryn Zavala on 02/23/19 4:03 pm * Is the patient Alert and Oriented? Yes * Pharmacy Dr. Bryan * Preadmission Environment Home Alone * ADLs Partial Dependent * Partial ADLs (Assistance needed) Ambulation * Equipment Cane Rolling Walker Wheelchair * List name and contact numbers for known caregivers / representatives who currently or will assist patient after discharge: Naomi YoderPinon - DTR - [phone] * Verbal permission to speak to the caregivers and representatives has been obtained from the patient. Yes * Community resources currently utilized None * Additional services required to return to the preadmission environment? No * Can the patient safely return to the preadmission environment? Yes * Has this patient been hospitalized within the prior 30 days at any hospital? Yes Coverage Notice Reviewer: [id number] - Taryn Zavala Notice Issued Date-Time: 02/23/2019 16:16 Notice Type: Patient Choice Letter Notice Delivered To: Patient Relationship to Patient: Self Foundry Tender Name: Delivery Method: HAND - Hand Delivered Keshia Days: Prior Verbal Notification: Recipient Understood Notice: Yes Recipient Signature: Yes Med Rec Note Co-signed by Attending: Coverage Notice Comment: LILLIAN for [facility] inpatient rehab Last DP export: 02/23/19 3:08 Patient Name: LYLE VILLA Page [phone] at 1619 All edits/amendments must be made on the electronic document DICTATION DATE: 02/23/191618 SOLID TIRE FINISHER: SIMON 02/23/191618 RPT#: [id number] DC DATE: STATUS: ADM IN [facility] [address] [place] [address] END OF REPORT
--- NOTE | 2019-02-23 16:51 | NUR ---
OT NOTE: PT COMPLETED ADL MOB WITH RW WITH CGA. PT COMPLETED BED MOB TASKS WITH CGA. PT COMPLETED SIT TO STAND WITH CGA. PT COMPLETED GROOMING TASKS WITH SET UP. THANK YOU,ELLIE JENSEN
[2019-02-23 17:14] VITALS: BP 136/68
[2019-02-23 19:30] VITALS: BP 125/66
[2019-02-24 00:30] VITALS: BP 118/68
[2019-02-24 04:51] LABS: BASOPHILS 0.1 % (0-2); EOSINOPHILS 1.8 % (0-7); HEMATOCRIT 34.9 % (36.0-48.0); HEMOGLOBIN 10.6 g/dL (12-16); IMMATURE GRANULOCYTES 0.3 % (0-5); LYMPHOCYTES 13.4 % (15-50); MCH 25.7 pg (26.0-34.0); MCHC 30.4 g/dL (31.0-37.0); MCV 84.7 fL (80.0-100.0); MEAN PLATELET VOLUME 9.5 fL (7.4-10.4); MONOCYTES 8.6 % (2-11); NEUTROPHILS 75.8 % (40-80); PLATELET COUNT 195 10x3/uL (130-400); RBC 4.12 10x6/uL (4.00-5.40); WBC 7.1 10x3/uL (4.8-10.8)
[2019-02-24 05:00] VITALS: BP 121/72
[2019-02-24 05:24] LABS: ALBUMIN 2.3 g/dL (3.4-5.0); ALKALINE PHOSPHATASE 63 U/L (46-116); ALT (SGPT) 19 U/L (10-68); BILIRUBIN - TOTAL 0.42 mg/dL (0.2-1.3); CALC OSMOLALITY 277 mosm/kg (275-300); CALCIUM 9.6 mg/dL (8.5-10.1); CHLORIDE - SERUM 107 mmol/L (98-107); CREATININE - SERUM 0.6 mg/dL (0.6-1.3); GLUCOSE 91 mg/dL (74-106); POTASSIUM - SERUM 4.2 mmol/L (3.5-5.1); PROTEIN - SERUM 5.3 g/dL (6.4-8.2); SODIUM 140 mmol/L (136-145); UREA NITROGEN 10 mg/dL (7-18); eGFR NON AFRICAN AMERICAN > 90 mL/min (90-120)
--- NOTE | 2019-02-24 07:20 | NUR ---
PT RESTING IN BED WATCHING TV. RESP EVEN AND UNLABORED. DENIES PAIN AT THIS TIME. IV TO RIGHT CHEST PORT WITH NS @ 50ML/HR INFUSING VIA PUMP. SITE WITHOUT REDNESS OR EDEMA. ASSISTED PT TO BATHROOM AND BACK TO BED AT THIS TIME. DIAEN WELL WITH MINIMAL ASSIST. DENIES FURTHER NEEDS AT THIS TIME. CL WITHIN REACH. ENCOURAGED TO CALL WITH NEEDS. CONTINUE POC
[2019-02-24 09:21] VITALS: BP 114/70
[2019-02-24 12:54] VITALS: BP 131/68
--- NOTE | 2019-02-24 13:05 | MORECARE ---
CASE MANAGEMENT DISCHARGE SUMMARY PATIENT: LYLE VILLA UNIT: [id number] ADM DATE: 02/21/19 AGE: 78 : 38 SEX: F ROOM/BED: D.2236 AUTHOR: BRIDGETTE CHI PHYSICIAN: REFERRING PHYSICIAN: MARKEL NAPOLES MD DATE OF SERVICE: 02/24/19 Discharge Plan Patient Name: LYLE VILLA Facility: [facility]:[place] : 1940 Planned Disposition: Inpatient Rehab Anticipated Discharge Date: Discharge Date: Expected LOS: Initial Reviewer: [email or web address] Initial Review Date: 02/23/2019 Generated: 02/24/19 2:04 pm DCP- Discharge Planning Updated by [email or web address]: Taryn Zavala on 02/23/19 3:[address] I did discuss hospice with the patient and she states at this time, she does not want hospice. She states "some friends wanted me to do hospice, but Dr. Hardin doesn't want me to have hospice and I want to do what Dr. Hardin wants." CM will continue to follow and assist with discharge planning/needs. DCP- Discharge Planning Updated by [email or web address]: Taryn Zavala on 02/23/19 3:[address] Patient Name: LYLE VILLA Admission Status: Elective Accout number: [id number] Admission Date: 02-21-2019 : 1940 Admission Diagnosis:HYPOMAGNESEMIA Attending: SHAKIR NAPOLES Current LOS: 2 Anticipated DC Date: Planned Disposition: Inpatient Rehab Primary Insurance: [employer] CHOICE PPO MCR [facility] Discharge Planning Comments: CM met with patient to complete initial dc planning assessment. CM educated patient on the CM role and verbal consent given by patient to complete assessment. Patient lives at home alone. She states her ex grand daughter in law will be staying with her at night. At discharge patient states that her doctor states he is going to send her down to rehab. I informed her that her insurance will need to authorize inpatient rehab and they may recommend SNF or home health. She states she does not want to go to a SNF or have home health. She states once she is able to go home, she has plenty of help for her. She states her daughter lives on the same property as she does. I called and spoke with Jenny in inpatient rehab and she will submit clinical for insurance auth. CM discussed availability of home health, rehab services, and medical equipment. Patient denied known discharge needs at this time. CM will continue to follow and will assist as needed with dc plans/needs. Customer Support Representative: Taryn Hassansergio DCPIA - Discharge Planning Initial Assessment Updated by [email or web address]: Taryn Zavala on 02/23/19 4:03 pm * Is the patient Alert and Oriented? Yes * Pharmacy Dr. Bryan * Preadmission Environment Home Alone * ADLs Partial Dependent * Partial ADLs (Assistance needed) Ambulation * Equipment Cane Rolling Walker Wheelchair * List name and contact numbers for known caregivers / representatives who currently or will assist patient after discharge: Naomi Pinon - DTR - [phone] * Verbal permission to speak to the caregivers and representatives has been obtained from the patient. Yes * Community resources currently utilized None * Additional services required to return to the preadmission environment? No * Can the patient safely return to the preadmission environment? Yes * Has this patient been hospitalized within the prior 30 days at any hospital? Yes External Providers External Provider: [facility] Next Contact Date: Service Request Date: Service Type: Resolution: Reviewer: Comments: Coverage Notice Reviewer: [id number] - Trayn Zavala Notice Issued Date-Time: 02/23/2019 16:16 Notice Type: Patient Choice Letter Notice Delivered To: Patient Relationship to Patient: Self Ultrasound Specialist Name: Delivery Method: HAND - Hand Delivered Keshia Days: Prior Verbal Notification: Recipient Understood Notice: Yes Recipient Signature: Yes Med Rec Note Co-signed by Attending: Coverage Notice Comment: LILLIAN for [facility] inpatient rehab Last DP export: 02/23/19 3:19 Patient Name: LYLE VILLA Page [phone] at 1305 All edits/amendments must be made on the electronic document DICTATION DATE: 02/24/19 1304 CARD FOLDER: SIMON 02/24/19 1304 RPT#: [id number] DC DATE: STATUS: ADM IN [facility] [address] [place] [address] END OF REPORT
--- NOTE | 2019-02-24 13:11 | MORECARE ---
CASE MANAGEMENT DISCHARGE SUMMARY PATIENT: LYLE VILLA UNIT: [id number] ADM DATE: 02/21/19 AGE: 78 : 38 SEX: F ROOM/BED: D.2236 AUTHOR: ALON,DOC PHYSICIAN: REFERRING PHYSICIAN: MARKEL NAPOLES MD DATE OF SERVICE: 02/24/19 Discharge Plan Patient Name: LYLE VILLA Facility: [facility]:[place] : 1940 Planned Disposition: Inpatient Rehab Anticipated Discharge Date: Discharge Date: Expected LOS: Initial Reviewer: [email or web address] Initial Review Date: 02/23/2019 Generated: 02/24/19 2:11 pm Comments DCP- Discharge Planning Updated by [email or web address]: Taryn Zavala on 02/24/19 12:[address] Received a call from Jyoti that Inpatient rehab will be denied and they recommend outpatient LOC therapy. I spoke with patient and patient's daughter and patient states she needs to stay in rehab until she is doing better. She would like a referral to [facility]. I informed her that her insurance may deny a SNF, but we could set her up with home health with PT and she states that she would like to see if she can go to [facility] first. I called her daughter and she agrees. I called Kathrin with [facility] and referral faxed. CM will continue to follow and assist with discharge planning/needs. DCP- Discharge Planning Updated by [email or web address]: Taryn Zavala on 02/23/19 3:[address] I did discuss hospice with the patient and she states at this time, she does not want hospice. She states "some friends wanted me to do hospice, but Dr. Hardin doesn't want me to have hospice and I want to do what Dr. Hardin wants." CM will continue to follow and assist with discharge planning/needs. DCP- Discharge Planning Updated by [id number]: Taryn Zavala on 02/23/19 3:[address] Patient Name: LYLE VILLA Admission Status: Elective Accout number: [id number] Admission Date: 02-21-2019 : 1940 Admission Diagnosis:HYPOMAGNESEMIA Attending: SHAKIR NAPOLES Current LOS: 2 Anticipated DC Date: Planned Disposition: Inpatient Rehab Primary Insurance: [employer] CHOICE PPO [facility] Discharge Planning Comments: CM met with patient to complete initial dc planning assessment. CM educated patient on the CM role and verbal consent given by patient to complete assessment. Patient lives at home alone. She states her ex grand daughter in law will be staying with her at night. At discharge patient states that her doctor states he is going to send her down to rehab. I informed her that her insurance will need to authorize inpatient rehab and they may recommend SNF or home health. She states she does not want to go to a SNF or have home health. She states once she is able to go home, she has plenty of help for her. She states her daughter lives on the same property as she does. I called and spoke with Jenny in inpatient rehab and she will submit clinical for insurance auth. CM discussed availability of home health, rehab services, and medical equipment. Patient denied known discharge needs at this time. CM will continue to follow and will assist as needed with dc plans/needs. Bee Tender: Taryn Zavala DCPIA - Discharge Planning Initial Assessment Updated by [email or web address]: Taryn Zavala on 02/23/19 4:03 pm * Is the patient Alert and Oriented? Yes * Pharmacy Dr. Bryan * Preadmission Environment Home Alone * ADLs Partial Dependent * Partial ADLs (Assistance needed) Ambulation * Equipment Cane Rolling Walker Wheelchair * List name and contact numbers for known caregivers / representatives who currently or will assist patient after discharge: Naomi Pinon - R - [phone] * Verbal permission to speak to the caregivers and representatives has been obtained from the patient. Yes * Community resources currently utilized None * Additional services required to return to the preadmission environment? No * Can the patient safely return to the preadmission environment? Yes * Has this patient been hospitalized within the prior 30 days at any hospital? Yes Coverage Notice Reviewer: [id number] - Taryn Zavala Notice Issued Date-Time: 02/23/2019 16:16 Notice Type: Patient Choice Letter Notice Delivered To: Patient Relationship to Patient: Self Trauma Therapist Name: Delivery Method: HAND - Hand Delivered Keshia Days: Prior Verbal Notification: Recipient Understood Notice: Yes Recipient Signature: Yes Med Rec Note Co-signed by Attending: Coverage Notice Comment: LILLIAN for [facility] inpatient rehab Reviewer: [id number] Riccardo Zavala Notice Issued Date-Time: 02/24/2019 13:08 Notice Type: Patient Choice Letter Notice Delivered To: Patient Relationship to Patient: Self Trauma Therapist Name: Delivery Method: HAND - Hand Delivered Keshia Days: Prior Verbal Notification: Recipient Understood Notice: Yes Recipient Signature: Yes Med Rec Note Co-signed by Attending: Coverage Notice Comment: LILLIAN for [facility] and also [facility] if denied rehab Last DP export: 02/24/19 12:05 Patient Name: LYLE VILLA Page [phone] at 1311 All edits/amendments must be made on the electronic document DICTATION DATE: 02/24/19 131 MASONRY INSTALLER: SIMON 02/24/19 1311 RPT#: [id number] DC DATE: STATUS: ADM IN [facility] [address] [place] [address] END OF REPORT
--- NOTE | 2019-02-24 13:19 | NUR ---
NUTRITION F/U PT WITH GOOD PO INTAKE BREAKFAST BUT STATES SHE DOESN'T FEEL LIKE EATING LUNCH. DISCOURAGED SHE MAY NOT GET TO GO TO REHAB. ENCOURAGED PT TO EAT WHEN SHE FEELS BETTER. RD FOLLOWING
--- NOTE | 2019-02-24 15:02 | NUR ---
OT NOTE: PT DOING WELL. BED MOB WITH MIN ASSIST; MOD ASSIST TO ADÁN SOCKS; MIN ASSIST TO ADÁN GOWN; MIN ASSIST WITH TOILETING. ABLE TO AMB IN ROOM WITH USE OF WALKER AND MIN ASSIST. CONTINUES WITH UNSTEADY GAIT WITHOUT ASSIST. STANDING BALANCE F+. RECOMMEND IP REHAB FOR STRENGTH, BALANCE TRAINING, AND IMPROVING ADLS PERNELL DUMONT, OTR/L
[2019-02-24 17:28] VITALS: BP 133/65
[2019-02-24 19:30] VITALS: BP 134/70
[2019-02-25 00:30] VITALS: BP 150/60
[2019-02-25 05:19] VITALS: BP 146/68
[2019-02-25 06:48] LABS: BASOPHILS 0.1 % (0-2); EOSINOPHILS 1.2 % (0-7); HEMOGLOBIN 10.6 g/dL (12-16); IMMATURE GRANULOCYTES 0.3 % (0-5); LYMPHOCYTES 14.8 % (15-50); MCH 25.7 pg (26.0-34.0); MCHC 30.3 g/dL (31.0-37.0); MEAN PLATELET VOLUME 9.7 fL (7.4-10.4); MONOCYTES 8.7 % (2-11); NEUTROPHILS 74.9 % (40-80); PLATELET COUNT 205 10x3/uL (130-400); RBC 4.12 10x6/uL (4.00-5.40); WBC 7.4 10x3/uL (4.8-10.8)
[2019-02-25 06:52] LABS: ALBUMIN 2.4 g/dL (3.4-5.0); ALKALINE PHOSPHATASE 65 U/L (46-116); ALT (SGPT) 21 U/L (10-68); BILIRUBIN - TOTAL 0.49 mg/dL (0.2-1.3); CALC OSMOLALITY 278 mosm/kg (275-300); CALCIUM 9.8 mg/dL (8.5-10.1); CARBON DIOXIDE 29.5 mmol/L (21.0-32.0); CHLORIDE - SERUM 108 mmol/L (98-107); CREATININE - SERUM 0.7 mg/dL (0.6-1.3); GLUCOSE 88 mg/dL (74-106); MAGNESIUM - SERUM 1.6 mg/dL (1.8-2.4); POTASSIUM - SERUM 4.7 mmol/L (3.5-5.1); PROTEIN - SERUM 5.3 g/dL (6.4-8.2); SODIUM 141 mmol/L (136-145); UREA NITROGEN 10 mg/dL (7-18); eGFR NON AFRICAN AMERICAN 85 mL/min (90-120)
[2019-02-25 08:50] VITALS: BP 109/59; BP 166/70
--- NOTE | 2019-02-25 09:00 | NUR ---
ALERT AND ORIENTED X4 WITH IVF INFUSING AT PRESCRIBED RATE TO RT. CHEST PORT . PT UP WITH ASSSIT. DENIES ANY PAIN OR DISCOMFORT AT THIS TIME. NO PERIPHERAL EDEMA NOTED WITH HRRR. ENCOURAGED TO USE CALL LIGHT FOR ASSSIT.
--- NOTE | 2019-02-25 12:00 | NUR ---
TYLENOL 650MG GIVEN PO FOR GENERAL ABDOMINAL DISCOMFORT 11/23 ENCOURAGED OT USE CALL LIGHT FOR ASSIST.
[2019-02-25 12:28] VITALS: BP 145/69
[2019-02-25 16:58] VITALS: BP 146/62
--- NOTE | 2019-02-25 19:00 | NUR ---
BEDSIDE REPORT RECEIVED AND CARE OF PT ASSUMED. PT LYING IN SUPINE POSITION WITH EYES CLOSED. RIGHT IP PATENT WITH NS INFUSING AT 50 ML/HR. WILL MONITOR FOR NEEDS.
--- NOTE | 2019-02-25 19:23 | NUR ---
OT NOTE: PT COMPLETED BED MOB TASKS WITH SPV. PT COMPLETED ADL MOB WITH SBA/CGA. PT COMPLETED HAIR GROOMING WITH SET UP AT EOB. PT COMPLETED FACE WASH WITH SET UP. THANK YOU,ELLIE JENSEN
[2019-02-25 19:30] VITALS: BP 131/62
--- NOTE | 2019-02-25 22:12 | NUR ---
HS MEDICATIONS GIVEN TO INCLUDE DILAUDID PER REQUEST FOR PAIN. WILL CONTINUE TO MONITOR FOR NEEDS.
--- NOTE | 2019-02-25 23:24 | NUR ---
CALLED CHRONOMETER ADJUSTER TO ORDER MONITOR FOR PT.
[2019-02-26 00:30] VITALS: BP 140/72
--- NOTE | 2019-02-26 03:36 | NUR ---
CHANGED OUT ALL IV TUBING PER PROTOCAL.
[2019-02-26 04:57] VITALS: BP 134/80
--- NOTE | 2019-02-26 05:40 | NUR ---
MARYCARMEN BLOOD FROM [facility] FOR AM LABS AND DELIVERED TO DOCUMENTATION IMPROVEMENT SPECIALIST. FLUSHED LINE WELL AND RE-STARTED IV FLUIDS.
[2019-02-26 06:32] LABS: BASOPHILS 0.1 % (0-2); HEMATOCRIT 34.7 % (36.0-48.0); HEMOGLOBIN 10.5 g/dL (12-16); IMMATURE GRANULOCYTES 0.1 % (0-5); LYMPHOCYTES 11.8 % (15-50); MCH 25.5 pg (26.0-34.0); MCHC 30.3 g/dL (31.0-37.0); MCV 84.4 fL (80.0-100.0); MEAN PLATELET VOLUME 9.2 fL (7.4-10.4); MONOCYTES 7.7 % (2-11); NEUTROPHILS 79.3 % (40-80); PLATELET COUNT 213 10x3/uL (130-400); RBC 4.11 10x6/uL (4.00-5.40)
[2019-02-26 07:37] LABS: ALBUMIN 2.4 g/dL (3.4-5.0); ALKALINE PHOSPHATASE 74 U/L (46-116); ALT (SGPT) 31 U/L (10-68); BILIRUBIN - TOTAL 0.52 mg/dL (0.2-1.3); CALC OSMOLALITY 276 mosm/kg (275-300); CARBON DIOXIDE 26.3 mmol/L (21.0-32.0); CHLORIDE - SERUM 106 mmol/L (98-107); CREATININE - SERUM 0.6 mg/dL (0.6-1.3); GLUCOSE 83 mg/dL (74-106); MAGNESIUM - SERUM 1.8 mg/dL (1.8-2.4); PROTEIN - SERUM 5.1 g/dL (6.4-8.2); SODIUM 140 mmol/L (136-145); UREA NITROGEN 10 mg/dL (7-18); eGFR NON AFRICAN AMERICAN > 90 mL/min (90-120)
[2019-02-26 09:12] VITALS: BP 143/73
--- NOTE | 2019-02-26 10:24 | NUR ---
ALERT AND ORIENTED X4 WITH BREATH SOUNDS CTA AND HRRR. [facility] INTACT TO RT. CHEST WALL. TELEMETRY INTACT. DECREASED REDNESS UNDER RT. BREAST WITH RT. ARM ELEVATED WITH COMPRESSION DEVICE. DILAUDID GIVEN FOR ABDOMINAL DISCOMFORT WITH BOWEL SOUNDS NOTED X4. ENCOURAGED TO USE CALL LIGHT FOR ASSSIT.
[2019-02-26 13:04] VITALS: BP 133/53
[2019-02-26 16:36] VITALS: BP 122/73
--- NOTE | 2019-02-26 19:00 | NUR ---
BEDSIDE REPORT RECEIVED AND CARE OF PT ASSUMED. PT LYING IN LOW CUELLAR'S POSITION. RIGHT IP PATENT WITH NS INFUSING AT 50 ML/HR. TELEMETRY IN PLACE PER ORDER. WILL CONTINUE TO MONITOR FOR NEEDS.
[2019-02-26 20:00] VITALS: BP 130/58
--- NOTE | 2019-02-26 22:02 | NUR ---
GAVE DILAUDID IVP PER REQUEST FOR SEVERE PAIN IN RIGHT ARM. WILL MONITOR FOR EFFECTIVENESS.
[2019-02-27] VITALS: BP 133/61
[2019-02-27 04:00] VITALS: BP 145/64
[2019-02-27 05:46] LABS: BASOPHILS 0.1 % (0-2); EOSINOPHILS 1.4 % (0-7); HEMATOCRIT 33.5 % (36.0-48.0); HEMOGLOBIN 10.1 g/dL (12-16); IMMATURE GRANULOCYTES 0.3 % (0-5); LYMPHOCYTES 13.1 % (15-50); MCH 25.7 pg (26.0-34.0); MCHC 30.1 g/dL (31.0-37.0); MCV 85.2 fL (80.0-100.0); MEAN PLATELET VOLUME 9.6 fL (7.4-10.4); MONOCYTES 9.3 % (2-11); NEUTROPHILS 75.8 % (40-80); PLATELET COUNT 192 10x3/uL (130-400); RBC 3.93 10x6/uL (4.00-5.40); WBC 7.2 10x3/uL (4.8-10.8)
[2019-02-27 05:57] LABS: ALBUMIN 2.3 g/dL (3.4-5.0); ALKALINE PHOSPHATASE 63 U/L (46-116); ALT (SGPT) 27 U/L (10-68); BILIRUBIN - TOTAL 0.45 mg/dL (0.2-1.3); CALC OSMOLALITY 276 mosm/kg (275-300); CARBON DIOXIDE 28.6 mmol/L (21.0-32.0); CHLORIDE - SERUM 107 mmol/L (98-107); CREATININE - SERUM 0.5 mg/dL (0.6-1.3); GLUCOSE 89 mg/dL (74-106); MAGNESIUM - SERUM 1.7 mg/dL (1.8-2.4); POTASSIUM - SERUM 3.8 mmol/L (3.5-5.1); PROTEIN - SERUM 5.4 g/dL (6.4-8.2); SODIUM 140 mmol/L (136-145); UREA NITROGEN 9 mg/dL (7-18); eGFR NON AFRICAN AMERICAN > 90 mL/min (90-120)
--- NOTE | 2019-02-27 08:00 | NUR ---
ALERT AND ORIENTED X4. LUNGS CTA WITH HRRR. GENERALIZED EDEMA NOTED TO RT. ARM WITH VERY LIMITED ROM WITH RADIAL PULSES NOTED. COMPRESSION DEVICE ON WITH DILAUDID GIVEN PRN FOR PARM PAIN. TELEMETRY INTACT. SCD'S ON AT THIS TIME. PT ENCOURAGED TO USE CALL LIGHT FOR ASSSIT.
[2019-02-27 08:36] VITALS: BP 125/72
[2019-02-27 11:58] VITALS: BP 146/68
[2019-02-27 15:30] VITALS: BP 148/67
--- NOTE | 2019-02-27 19:00 | NUR ---
BEDSIDE REPORT RECEIVED AND CARE OF PT ASSUMED. PT LYING IN SUPINE POSITION. RIGHT IP PATENT WITH NS INFUSING AT 50 ML/HR. TELEMETRY IN PLACE PER ORDER. SCD'S IN PLACE ON BLE. WILL MONITOR FOR NEEDS.
[2019-02-27 20:54] VITALS: BP 157/69
--- NOTE | 2019-02-27 21:07 | NUR ---
HS MEDICATIONS GIVEN.
--- NOTE | 2019-02-27 21:38 | NUR ---
DILAUDID IVP GIVEN PER REQUEST FOR PAIN IN RIGHT ARM. WILL MONITOR FOR EFFECTIVENESS.
[2019-02-28 00:27] VITALS: BP 133/70
[2019-02-28 04:27] VITALS: BP 122/70
[2019-02-28 05:56] LABS: BASOPHILS 0.1 % (0-2); EOSINOPHILS 0.8 % (0-7); HEMATOCRIT 33.6 % (36.0-48.0); HEMOGLOBIN 10.3 g/dL (12-16); IMMATURE GRANULOCYTES 0.3 % (0-5); LYMPHOCYTES 12.6 % (15-50); MCH 26.1 pg (26.0-34.0); MCHC 30.7 g/dL (31.0-37.0); MCV 85.3 fL (80.0-100.0); MEAN PLATELET VOLUME 9.6 fL (7.4-10.4); MONOCYTES 7.2 % (2-11); PLATELET COUNT 175 10x3/uL (130-400); RBC 3.94 10x6/uL (4.00-5.40); RDW 14.9 % (11.5-14.5); WBC 7.5 10x3/uL (4.8-10.8)
[2019-02-28 06:33] LABS: ALBUMIN 2.3 g/dL (3.4-5.0); ALKALINE PHOSPHATASE 62 U/L (46-116); ALT (SGPT) 31 U/L (10-68); BILIRUBIN - TOTAL 0.58 mg/dL (0.2-1.3); CALC OSMOLALITY 279 mosm/kg (275-300); CALCIUM 9.1 mg/dL (8.5-10.1); CARBON DIOXIDE 27.7 mmol/L (21.0-32.0); CHLORIDE - SERUM 108 mmol/L (98-107); CREATININE - SERUM 0.5 mg/dL (0.6-1.3); GLUCOSE 85 mg/dL (74-106); MAGNESIUM - SERUM 1.8 mg/dL (1.8-2.4); PROTEIN - SERUM 5.1 g/dL (6.4-8.2); SODIUM 142 mmol/L (136-145); UREA NITROGEN 7 mg/dL (7-18); eGFR NON AFRICAN AMERICAN > 90 mL/min (90-120)
--- NOTE | 2019-02-28 07:20 | NUR ---
PT RESTING IN BED AWAKE. RESP EVEN AND UNLABORED. PT REPORTS PAIN 3/10 AT THIS TIME. IV TO RIGHT CHEST PORT WITH NS @ 50ML/HR INFUSING VIA PUMP. SITE WITHOUT REDNESS OR EDEMA. DENIES FURTHER NEEDS AT THIS TIME. CL WITHIN REACH. ENCOURAGED TO CALL WITH NEEDS. CONTINUE POC
[2019-02-28 08:36] VITALS: BP 118/68; BP 127/73
--- NOTE | 2019-02-28 12:55 | MORECARE ---
CASE MANAGEMENT DISCHARGE SUMMARY PATIENT: LYLE VILLA UNIT: [id number] ADM DATE: 02/21/19 AGE: 78 : 38 SEX: F ROOM/BED: D.2236 AUTHOR: ALON,DOC PHYSICIAN: REFERRING PHYSICIAN: MARKEL NAPOLES MD DATE OF SERVICE: 02/28/19 Discharge Plan Patient Name: LYLE VILLA Facility: [facility]:[place] : 1940 Planned Disposition: Inpatient Rehab Anticipated Discharge Date: Discharge Date: Expected LOS: Initial Reviewer: [id number] Initial Review Date: 02/23/2019 Generated: 02/28/19 1:54 pm Comments DCP- Discharge Planning Updated by [id number]: Taryn Lucas on 02/28/19 11:[address] SPOKE WITH MELVIN MASSEY FOR [facility]. SHE STATES SHE IS COMING TO THE HOSPITAL AND WILL MEET WITH THE PATIENT. UPDATED CLINICAL FAXED. AWAITING INSURANCE AUTHORIZATION FOR SNF. CM WILL CONTINUE TO FOLLOW AND ASSIST WITH DISCHARGE PLANNING/NEEDS. DCP- Discharge Planning Updated by [id number]: Taryn Lucas on 02/24/19 12:[address] Received a call from Jy[facility] that Inpatient rehab will be denied and they recommend outpatient LOC therapy. I spoke with patient and patient's daughter and patient states she needs to stay in rehab until she is doing better. She would like a referral to [facility]. I informed her that her insurance may deny a SNF, but we could set her up with home health with PT and she states that she would like to see if she can go to [facility] first. I called her daughter and she agrees. I called Kathrin with [facility] and referral faxed. CM will continue to follow and assist with discharge planning/needs. DCP- Discharge Planning Updated by [id number]: Taryn Lucas on 02/23/19 3:[address] I did discuss hospice with the patient and she states at this time, she does not want hospice. She states "some friends wanted me to do hospice, but Dr. Hardin doesn't want me to have hospice and I want to do what Dr. Wilfred wants." CM will continue to follow and assist with discharge planning/needs. DCP- Discharge Planning Updated by [id number]: Taryn Zavala on 02/23/19 3:[address] Patient Name: LYLE VILLA Admission Status: Elective Accout number: [id number] Admission Date: 02-21-2019 : 1940 Admission Diagnosis:HYPOMAGNESEMIA Attending: SHAKIR NAPOLES Current LOS: 2 Anticipated DC Date: Planned Disposition: Inpatient Rehab Primary Insurance: [employer] CHOICE PPO MCR ADVANT Discharge Planning Comments: CM met with patient to complete initial dc planning assessment. CM educated patient on the CM role and verbal consent given by patient to complete assessment. Patient lives at home alone. She states her ex grand daughter in law will be staying with her at night. At discharge patient states that her doctor states he is going to send her down to rehab. I informed her that her insurance will need to authorize inpatient rehab and they may recommend SNF or home health. She states she does not want to go to a SNF or have home health. She states once she is able to go home, she has plenty of help for her. She states her daughter lives on the same property as she does. I called and spoke with Jenny in inpatient rehab and she will submit clinical for insurance auth. CM discussed availability of home health, rehab services, and medical equipment. Patient denied known discharge needs at this time. CM will continue to follow and will assist as needed with dc plans/needs. Ore Crushing Dust Collector: Taryn Zavala DCPIA - Discharge Planning Initial Assessment Updated by [id number]: Taryn Zavala on 02/23/19 4:03 pm * Is the patient Alert and Oriented? Yes * Pharmacy Dr. Bryan * Preadmission Environment Home Alone * ADLs Partial Dependent * Partial ADLs (Assistance needed) Ambulation * Equipment Cane Rolling Walker Wheelchair * List name and contact numbers for known caregivers / representatives who currently or will assist patient after discharge: Naomi Pinon - DTR - [phone] * Verbal permission to speak to the caregivers and representatives has been obtained from the patient. Yes * Community resources currently utilized None * Additional services required to return to the preadmission environment? No * Can the patient safely return to the preadmission environment? Yes * Has this patient been hospitalized within the prior 30 days at any hospital? Yes Coverage Notice Reviewer: [id number] Riccardo Zavala Notice Issued Date-Time: 02/23/2019 16:16 Notice Type: Patient Choice Letter Notice Delivered To: Patient Relationship to Patient: Self Manager Knowledge Name: Delivery Method: HAND - Hand Delivered Keshia Days: Prior Verbal Notification: Recipient Understood Notice: Yes Recipient Signature: Yes Med Rec Note Co-signed by Attending: Coverage Notice Comment: LILLIAN for [facility] inpatient rehab Reviewer: [id number] Riccardo Zavala Notice Issued Date-Time: 02/24/2019 13:08 Notice Type: Patient Choice Letter Notice Delivered To: Patient Relationship to Patient: Self Manager Knowledge Name: Delivery Method: HAND - Hand Delivered Keshia Days: Prior Verbal Notification: Recipient Understood Notice: Yes Recipient Signature: Yes Med Rec Note Co-signed by Attending: Coverage Notice Comment: LILLIAN for [facility] and also [facility] if denied rehab Last DP export: 02/24/19 12:11 Patient Name: LYLE VILLA Page [id number] at 1255 All edits/amendments must be made on the electronic document DICTATION DATE: 02/28/19 1254 DISABILITY INSURANCE CLAIM EXAMINER: SIMON 02/28/19 1254 RPT#: [id number] DC DATE: STATUS: ADM IN [facility] [address] [place] [address] END OF REPORT
--- NOTE | 2019-02-28 13:18 | MORECARE ---
CASE MANAGEMENT DISCHARGE SUMMARY PATIENT: LYLE VILLA UNIT: [id number] ADM DATE: 02/21/19 AGE: 78 : 38 SEX: F ROOM/BED: D.2236 AUTHOR: ALON,DOC PHYSICIAN: REFERRING PHYSICIAN: MARKEL NAPOLES MD DATE OF SERVICE: 02/28/19 Discharge Plan Patient Name: LYLE VILLA Facility: [facility]:[place] : 1940 Planned Disposition: Inpatient Rehab Anticipated Discharge Date: Discharge Date: Expected LOS: Initial Reviewer: [id number] Initial Review Date: 02/23/2019 Generated: 02/28/19 2:18 pm Comments DCP- Discharge Planning Updated by [id number]: Taryn Lucas on 02/28/19 12:[address] I spoke with the patient and her daughter, Naomi, and they are both in agreement to go to rehab at [facility]. They both understand and agree that she would not be getting her chemo while at the [facility] facility, but [facility] I called melvin Massey for [facility], and she states they will get auth. CM will continue to follow and assist with discharge planning/needs. DCP- Discharge Planning Updated by [id number]: Taryn Lucas on 02/28/19 11:[address] SPOKE WITH MELVIN MASSEY FOR [facility]. SHE STATES SHE IS COMING TO THE HOSPITAL AND WILL MEET WITH THE PATIENT. UPDATED CLINICAL FAXED. AWAITING INSURANCE AUTHORIZATION FOR SNF. CM WILL CONTINUE TO FOLLOW AND ASSIST WITH DISCHARGE PLANNING/NEEDS. DCP- Discharge Planning Updated by [id number]: Taryn Zavala on 02/24/19 12:[address] Received a call from J[facility] that Inpatient rehab will be denied and they recommend outpatient LOC therapy. I spoke with patient and patient's daughter and patient states she needs to stay in rehab until she is doing better. She would like a referral to [facility]. I informed her that her insurance may deny a SNF, but we could set her up with home health with PT and she states that she would like to see if she can go to [facility] first. I called her daughter and she agrees. I called Kathrin with [facility] and referral faxed. CM will continue to follow and assist with discharge planning/needs. DCP- Discharge Planning Updated by [id number]: Taryn Zavala on 02/23/19 3:[address] I did discuss hospice with the patient and she states at this time, she does not want hospice. She states "some friends wanted me to do hospice, but Dr. Hardin doesn't want me to have hospice and I want to do what Dr. Hardin wants." CM will continue to follow and assist with discharge planning/needs. DCP- Discharge Planning Updated by [id number]: Taryn Zavala on 02/23/19 3:[address] Patient Name: LYLE VILLA Admission Status: Elective Accout number: [id number] Admission Date: 02-21-2019 : 1940 Admission Diagnosis:HYPOMAGNESEMIA Attending: SHAKIR NAPOLES Current LOS: 2 Anticipated DC Date: Planned Disposition: Inpatient Rehab Primary Insurance: [employer] CHOICE PPO MCR ADVANT Discharge Planning Comments: CM met with patient to complete initial dc planning assessment. CM educated patient on the CM role and verbal consent given by patient to complete assessment. Patient lives at home alone. She states her ex grand daughter in law will be staying with her at night. At discharge patient states that her doctor states he is going to send her down to rehab. I informed her that her insurance will need to authorize inpatient rehab and they may recommend SNF or home health. She states she does not want to go to a SNF or have home health. She states once she is able to go home, she has plenty of help for her. She states her daughter lives on the same property as she does. I called and spoke with Jenny in inpatient rehab and she will submit clinical for insurance auth. CM discussed availability of home health, rehab services, and medical equipment. Patient denied known discharge needs at this time. CM will continue to follow and will assist as needed with dc plans/needs. Event Specialist: Taryn Hassansergio DCPIA - Discharge Planning Initial Assessment Updated by [email or web address]: Taryn Zavala on 02/23/19 4:03 pm * Is the patient Alert and Oriented? Yes * Pharmacy Dr. Bryan * Preadmission Environment Home Alone * ADLs Partial Dependent * Partial ADLs (Assistance needed) Ambulation * Equipment Cane Rolling Walker Wheelchair * List name and contact numbers for known caregivers / representatives who currently or will assist patient after discharge: Naomi Pinon - DTR - [phone] * Verbal permission to speak to the caregivers and representatives has been obtained from the patient. Yes * Community resources currently utilized None * Additional services required to return to the preadmission environment? No * Can the patient safely return to the preadmission environment? Yes * Has this patient been hospitalized within the prior 30 days at any hospital? Yes Coverage Notice Reviewer: [id number] Riccardo Zavala Notice Issued Date-Time: 02/23/2019 16:16 Notice Type: Patient Choice Letter Notice Delivered To: Patient Relationship to Patient: Self Travel Sales Consultant Name: Delivery Method: HAND - Hand Delivered Keshia Days: Prior Verbal Notification: Recipient Understood Notice: Yes Recipient Signature: Yes Med Rec Note Co-signed by Attending: Coverage Notice Comment: LILLIAN for [facility] inpatient rehab Reviewer: [id number] Zavala Notice Issued Date-Time: 02/24/2019 13:08 Notice Type: Patient Choice Letter Notice Delivered To: Patient Relationship to Patient: Self Travel Sales Consultant Name: Delivery Method: HAND - Hand Delivered Keshia Days: Prior Verbal Notification: Recipient Understood Notice: Yes Recipient Signature: Yes Med Rec Note Co-signed by Attending: Coverage Notice Comment: LILLIAN for [facility] and also [facility] if denied rehab Reviewer: [id number] Zavala Notice Issued Date-Time: 02/28/2019 13:10 Notice Type: IM Discharge Notice Notice Delivered To: Patient Relationship to Patient: Self Travel Sales Consultant Name: Delivery Method: HAND - Hand Delivered Keshia Days: Prior Verbal Notification: Recipient Understood Notice: Yes Recipient Signature: Yes Med Rec Note Co-signed by Attending: Coverage Notice Comment: IMM explained, signed, given, copy placed in MR Last DP export: 02/28/19 11:55 Patient Name: LYLE VILLA Page [phone] at 1318 All edits/amendments must be made on the electronic document DICTATION DATE: 02/28/19 1318 PATIENT CARRIER: SIMON 02/28/19 1318 RPT#: [id number] [place] DATE: STATUS: ADM IN [facility] [address] [place] [address] END OF REPORT
[2019-02-28 13:24] VITALS: BP 154/68
--- NOTE | 2019-02-28 14:45 | MORECARE ---
CASE MANAGEMENT DISCHARGE SUMMARY PATIENT: LYLE VILLA UNIT: [id number] ADM DATE: 02/21/19 AGE: 78 : 38 SEX: F ROOM/BED: D.2236 AUTHOR: ALON,DOC PHYSICIAN: REFERRING PHYSICIAN: MARKEL NAPOLES MD DATE OF SERVICE: 02/28/19 Discharge Plan Patient Name: LYLE VILLA Facility: [facility]:[place] : 1940 Planned Disposition: Inpatient Rehab Anticipated Discharge Date: Discharge Date: Expected LOS: Initial Reviewer: [email or web address] Initial Review Date: 02/23/2019 Generated: 02/28/19 3:45 pm Comments DCP- Discharge Planning Updated by [id number]: Taryn Lucas on 02/28/19 12:[address] I spoke with the patient and her daughter, Naomi, and they are both in agreement to go to rehab at [facility]. They both understand and agree that she would not be getting her chemo while at the [facility] facility, but could start it [facility] I called melvin Massey for [facility], and she states they will get auth. CM will continue to follow and assist with discharge planning/needs. DCP- Discharge Planning Updated by [id number]: Taryn Lucas on 02/28/19 11:[address] SPOKE WITH MELVIN MASSEY FOR [facility]. SHE STATES SHE IS COMING TO THE HOSPITAL AND WILL MEET WITH THE PATIENT. UPDATED CLINICAL FAXED. AWAITING INSURANCE AUTHORIZATION FOR SNF. CM WILL CONTINUE TO FOLLOW AND ASSIST WITH DISCHARGE PLANNING/NEEDS. DCP- Discharge Planning Updated by [id number]: Taryn Zavala on 02/24/19 12:[address] Received a call from [facility] that Inpatient rehab will be denied and they recommend outpatient LOC therapy. I spoke with patient and patient's daughter and patient states she needs to stay in rehab until she is doing better. She would like a referral to [facility]. I informed her that her insurance may deny a SNF, but we could set her up with home health with PT and she states that she would like to see if she can go to [facility] first. I called her daughter and she agrees. I called Kathrin with [facility] and referral faxed. CM will continue to follow and assist with discharge planning/needs. DCP- Discharge Planning Updated by [id number]: Taryn Zavala on 02/23/19 3:[address] I did discuss hospice with the patient and she states at this time, she does not want hospice. She states "some friends wanted me to do hospice, but Dr. Hardin doesn't want me to have hospice and I want to do what Dr. Hardin wants." CM will continue to follow and assist with discharge planning/needs. DCP- Discharge Planning Updated by [id number]: Taryn Zavala on 02/23/19 3:[address] Patient Name: LYLE VILLA Admission Status: Elective Accout number: [id number] Admission Date: 02-21-2019 : 1940 Admission Diagnosis:HYPOMAGNESEMIA Attending: SHAKIR NAPOLES Current LOS: 2 Anticipated DC Date: Planned Disposition: Inpatient Rehab Primary Insurance: [employer] CHOICE PPO MCR ADVANT Discharge Planning Comments: CM met with patient to complete initial dc planning assessment. CM educated patient on the CM role and verbal consent given by patient to complete assessment. Patient lives at home alone. She states her ex grand daughter in law will be staying with her at night. At discharge patient states that her doctor states he is going to send her down to rehab. I informed her that her insurance will need to authorize inpatient rehab and they may recommend SNF or home health. She states she does not want to go to a SNF or have home health. She states once she is able to go home, she has plenty of help for her. She states her daughter lives on the same property as she does. I called and spoke with Jenny in inpatient rehab and she will submit clinical for insurance auth. CM discussed availability of home health, rehab services, and medical equipment. Patient denied known discharge needs at this time. CM will continue to follow and will assist as needed with dc plans/needs. Industrial Maintenance Manager: Taryn Hassansergio DCPIA - Discharge Planning Initial Assessment Updated by [email or web address]: Taryn Zavala on 02/23/19 4:03 pm * Is the patient Alert and Oriented? Yes * Pharmacy Dr. Bryan * Preadmission Environment Home Alone * ADLs Partial Dependent * Partial ADLs (Assistance needed) Ambulation * Equipment Cane Rolling Walker Wheelchair * List name and contact numbers for known caregivers / representatives who currently or will assist patient after discharge: Naomi Pinon - DTR - [phone] * Verbal permission to speak to the caregivers and representatives has been obtained from the patient. Yes * Community resources currently utilized None * Additional services required to return to the preadmission environment? No * Can the patient safely return to the preadmission environment? Yes * Has this patient been hospitalized within the prior 30 days at any hospital? Yes External Providers External Provider: OTHER-OTHER Next Contact Date: Service Request Date: Service Type: Resolution: Reviewer: Comments: Coverage Notice Reviewer: [id number] Zavala Notice Issued Date-Time: 02/23/2019 16:16 Notice Type: Patient Choice Letter Notice Delivered To: Patient Relationship to Patient: Self Shirt Maker Name: Delivery Method: HAND - Hand Delivered Keshia Days: Prior Verbal Notification: Recipient Understood Notice: Yes Recipient Signature: Yes Med Rec Note Co-signed by Attending: Coverage Notice Comment: LILLIAN for [facility] inpatient rehab Reviewer: [id number] Zavala Notice Issued Date-Time: 02/24/2019 13:08 Notice Type: Patient Choice Letter Notice Delivered To: Patient Relationship to Patient: Self Shirt Maker Name: Delivery Method: HAND - Hand Delivered Keshia Days: Prior Verbal Notification: Recipient Understood Notice: Yes Recipient Signature: Yes Med Rec Note Co-signed by Attending: Coverage Notice Comment: LILLIAN for [facility] and also [facility] if denied rehab Reviewer: [id number] Zavala Notice Issued Date-Time: 02/28/2019 13:10 Notice Type: IM Discharge Notice Notice Delivered To: Patient Relationship to Patient: Self Shirt Maker Name: Delivery Method: HAND - Hand Delivered Keshia Days: Prior Verbal Notification: Recipient Understood Notice: Yes Recipient Signature: Yes Med Rec Note Co-signed by Attending: Coverage Notice Comment: IMM explained, signed, given, copy placed in MR Last DP export: 02/28/19 12:18 Patient Name: LYLE VILLA Page [phone] at 1445 All edits/amendments must be made on the electronic document DICTATION DATE: 02/28/191444 SENIOR TAX SPECIALIST: SIMON 02/28/191444 RPT#: [id number] DC DATE: STATUS: ADM IN [facility] [address] [place] [address] END OF REPORT
--- NOTE | 2019-02-28 14:55 | MORECARE ---
CASE MANAGEMENT DISCHARGE SUMMARY PATIENT: LYLE VILLA UNIT: [id number] ADM DATE: 02/21/19 AGE: 78 : 38 SEX: F ROOM/BED: D.2236 AUTHOR: ALON,DOC PHYSICIAN: REFERRING PHYSICIAN: MARKEL NAPOLES MD DATE OF SERVICE: 02/28/19 Discharge Plan Patient Name: LYLE VILLA Facility: [facility]:[place] : 1940 Planned Disposition: Inpatient Rehab Anticipated Discharge Date: Discharge Date: Expected LOS: Initial Reviewer: [email or web address] Initial Review Date: 02/23/2019 Generated: 02/28/19 3:55 pm Comments DCP- Discharge Planning Updated by [id number]: Taryn Zavala on 02/28/19 1:[address] Patient's daughter called me and states that her mother is wanting to go home so she can have her chemo on Thursday, Daughter states she is ok with this if she goes home with [facility] and LILLIAN for [facility] has already been signed. I called Manasa at [facility] in [place] and clinical faxed. I called Kathrin and informed her that patient wants to go home. Home today with [facility]. DCP- Discharge Planning Updated by [id number]: Taryn Zavala on 02/28/19 12:[address] I spoke with the patient and her daughter, Naomi, and they are both in agreement to go to rehab at [facility]. They both understand and agree that she would not be getting her chemo while at the [facility] facility, but [facility] I called melvin Massey for [facility], and she states they will get auth. CM will continue to follow and assist with discharge planning/needs. DCP- Discharge Planning Updated by [email or web address]: aTryn Zavala on 02/28/19 11:[address] SPOKE WITH MELVIN MASSEY FOR [facility]. SHE STATES SHE IS COMING TO THE HOSPITAL AND WILL MEET WITH THE PATIENT. UPDATED CLINICAL FAXED. AWAITING INSURANCE AUTHORIZATION FOR SNF. CM WILL CONTINUE TO FOLLOW AND ASSIST WITH DISCHARGE PLANNING/NEEDS. DCP- Discharge Planning Updated by [id number]: Taryn Zavala on 02/24/19 12:[address] Received a call from Jyoti that Inpatient rehab will be denied and they recommend outpatient LOC therapy. I spoke with patient and patient's daughter and patient states she needs to stay in rehab until she is doing better. She would like a referral to [facility]. I informed her that her insurance may deny a SNF, but we could set her up with home health with PT and she states that she would like to see if she can go to [facility] first. I called her daughter and she agrees. I called Kathrin with [facility] and referral faxed. CM will continue to follow and assist with discharge planning/needs. DCP- Discharge Planning Updated by [email or web address]: Taryn Zavala on 02/23/19 3:[address] I did discuss hospice with the patient and she states at this time, she does not want hospice. She states "some friends wanted me to do hospice, but Dr. Hardin doesn't want me to have hospice and I want to do what Dr. Hardin wants." CM will continue to follow and assist with discharge planning/needs. DCP- Discharge Planning Updated by [id number]: Taryn Zavala on 02/23/19 3:[address] Patient Name: LYLE VILLA Admission Status: Elective Accout number: [id number] Admission Date: 02-21-2019 : 1940 Admission Diagnosis:HYPOMAGNESEMIA Attending: SHAKIR NAPOLES Current LOS: 2 Anticipated DC Date: Planned Disposition: Inpatient Rehab Primary Insurance: [employer] CHOICE PPO [facility] Discharge Planning Comments: CM met with patient to complete initial dc planning assessment. CM educated patient on the CM role and verbal consent given by patient to complete assessment. Patient lives at home alone. She states her ex grand daughter in law will be staying with her at night. At discharge patient states that her doctor states he is going to send her down to rehab. I informed her that her insurance will need to authorize inpatient rehab and they may recommend SNF or home health. She states she does not want to go to a SNF or have home health. She states once she is able to go home, she has plenty of help for her. She states her daughter lives on the same property as she does. I called and spoke with Jenny in inpatient rehab and she will submit clinical for insurance auth. CM discussed availability of home health, rehab services, and medical equipment. Patient denied known discharge needs at this time. CM will continue to follow and will assist as needed with dc plans/needs. Audio/Visual Manager: Taryn Zavlaa DCPIA - Discharge Planning Initial Assessment Updated by [id number]: Taryn Zavala on 02/23/19 4:03 pm * Is the patient Alert and Oriented? Yes * Pharmacy Dr. Bryan * Preadmission Environment Home Alone * ADLs Partial Dependent * Partial ADLs (Assistance needed) Ambulation * Equipment Cane Rolling Walker Wheelchair * List name and contact numbers for known caregivers / representatives who currently or will assist patient after discharge: Naomi Pinon - DTR - [phone] * Verbal permission to speak to the caregivers and representatives has been obtained from the patient. Yes * Community resources currently utilized None * Additional services required to return to the preadmission environment? No * Can the patient safely return to the preadmission environment? Yes * Has this patient been hospitalized within the prior 30 days at any hospital? Yes Coverage Notice Reviewer: [id number] Riccardo Zavala Notice Issued Date-Time: 02/23/2019 16:16 Notice Type: Patient Choice Letter Notice Delivered To: Patient Relationship to Patient: Self Iso Coordinator Name: Delivery Method: HAND - Hand Delivered Keshia Days: Prior Verbal Notification: Recipient Understood Notice: Yes Recipient Signature: Yes Med Rec Note Co-signed by Attending: Coverage Notice Comment: LILLIAN for [facility] inpatient rehab Reviewer: [id number] Riccardo Zavala Notice Issued Date-Time: 02/24/2019 13:08 Notice Type: Patient Choice Letter Notice Delivered To: Patient Relationship to Patient: Self Iso Coordinator Name: Delivery Method: HAND - Hand Delivered Keshia Days: Prior Verbal Notification: Recipient Understood Notice: Yes Recipient Signature: Yes Med Rec Note Co-signed by Attending: Coverage Notice Comment: LILLIAN for [facility] and also [facility] if denied rehab Reviewer: [email or web address] Riccardo Zavala Notice Issued Date-Time: 02/28/2019 13:10 Notice Type: IM Discharge Notice Notice Delivered To: Patient Relationship to Patient: Self Iso Coordinator Name: Delivery Method: HAND - Hand Delivered Keshia Days: Prior Verbal Notification: Recipient Understood Notice: Yes Recipient Signature: Yes Med Rec Note Co-signed by Attending: Coverage Notice Comment: IMM explained, signed, given, copy placed in MR Last DP export: 02/28/19 1:45 Patient Name: LYLE VILLA Page [id number] at 1455 All edits/amendments must be made on the electronic document DICTATION DATE: 02/28/191454 LEATHER BELT LOOP CUTTER: SIMON 02/28/191454 RPT#: [id number] DC DATE: STATUS: ADM IN [facility] [address] [place] [address] END OF REPORT
--- NOTE | 2019-03-02 14:11 | MORECARE ---
CASE MANAGEMENT DISCHARGE SUMMARY PATIENT: LYLE VILLA UNIT: [id number] ADM DATE: 02/21/19 AGE: 78 : 38 SEX: F ROOM/BED: D.2236 AUTHOR: ALON,DOC PHYSICIAN: REFERRING PHYSICIAN: MARKEL NAPOLES MD DATE OF SERVICE: 03/02/19 Discharge Plan Patient Name: LYLE VILLA Facility: [facility]:[place] : 1940 Planned Disposition: Inpatient Rehab Anticipated Discharge Date: Discharge Date: 02/28/2019 Expected LOS: 0 Initial Reviewer: [id number] Initial Review Date: 02/23/2019 Generated: 03/02/19 3:10 pm Comments DCP- Discharge Planning Updated by [email or web address]: Taryn Hassansergio on 02/28/19 1:[address] Patient's daughter called me and states that her mother is wanting to go home so she can have her chemo on Thursday, Daughter states she is ok with this if she goes home with [facility] and LILLIAN for [facility] has already been signed. I called Manasa at [facility] in [place] and clinical faxed. I called Kathrin and informed her that patient wants to go home. Home today with [facility]. DCP- Discharge Planning Updated by [id number]: Taryn Lucas on 02/28/19 12:[address] I spoke with the patient and her daughter, Naomi, and they are both in agreement to go to rehab at [facility]. They both understand and agree that she would not be getting her chemo while at the [facility] facility, but could start it again when [facility]. I called melvin Massey for [facility], and she states they will get auth. CM will continue to follow and assist with discharge planning/needs. DCP- Discharge Planning Updated by [id number]: Taryn Lucas on 02/28/19 11:[address] SPOKE WITH MELVIN MASSEY FOR [facility]. SHE STATES SHE IS COMING TO THE HOSPITAL AND WILL MEET WITH THE PATIENT. UPDATED CLINICAL FAXED. AWAITING INSURANCE AUTHORIZATION FOR SNF. CM WILL CONTINUE TO FOLLOW AND ASSIST WITH DISCHARGE PLANNING/NEEDS. DCP- Discharge Planning Updated by [email or web address]: Taryn Zavala on 02/24/19 12:[address] Received a call from Jyoti that Inpatient rehab will be denied and they recommend outpatient LOC therapy. I spoke with patient and patient's daughter and patient states she needs to stay in rehab until she is doing better. She would like a referral to [facility]. I informed her that her insurance may deny a SNF, but we could set her up with home health with PT and she states that she would like to see if she can go to [facility] first. I called her daughter and she agrees. I called Kathrin with [facility] and referral faxed. CM will continue to follow and assist with discharge planning/needs. DCP- Discharge Planning Updated by [id number]: Taryn Zavala on 02/23/19 3:[address] I did discuss hospice with the patient and she states at this time, she does not want hospice. She states "some friends wanted me to do hospice, but Dr. Hardin doesn't want me to have hospice and I want to do what Dr. Hardin wants." CM will continue to follow and assist with discharge planning/needs. DCP- Discharge Planning Updated by [email or web address]: Taryn Zavala on 02/23/19 3:[address] Patient Name: LYLE VILLA Admission Status: Elective Accout number: [id number] Admission Date: 02-21-2019 : 1940 Admission Diagnosis:HYPOMAGNESEMIA Attending: SHAKIR NAPOLES Current LOS: 2 Anticipated DC Date: Planned Disposition: Inpatient Rehab Primary Insurance: [employer]NA CHOICE PPO [facility] Discharge Planning Comments: CM met with patient to complete initial dc planning assessment. CM educated patient on the CM role and verbal consent given by patient to complete assessment. Patient lives at home alone. She states her ex grand daughter in law will be staying with her at night. At discharge patient states that her doctor states he is going to send her down to rehab. I informed her that her insurance will need to authorize inpatient rehab and they may recommend SNF or home health. She states she does not want to go to a SNF or have home health. She states once she is able to go home, she has plenty of help for her. She states her daughter lives on the same property as she does. I called and spoke with Jenny in inpatient rehab and she will submit clinical for insurance auth. CM discussed availability of home health, rehab services, and medical equipment. Patient denied known discharge needs at this time. CM will continue to follow and will assist as needed with dc plans/needs. Shut Off Worker: Taryn Zavala DCPIA - Discharge Planning Initial Assessment Updated by [email or web address]: Taryn Zavala on 02/23/19 4:03 pm * Is the patient Alert and Oriented? Yes * Pharmacy Dr. Bryan * Preadmission Environment Home Alone * ADLs Partial Dependent * Partial ADLs (Assistance needed) Ambulation * Equipment Cane Rolling Walker Wheelchair * List name and contact numbers for known caregivers / representatives who currently or will assist patient after discharge: Naomi Pinon - DTR - [phone] * Verbal permission to speak to the caregivers and representatives has been obtained from the patient. Yes * Community resources currently utilized None * Additional services required to return to the preadmission environment? No * Can the patient safely return to the preadmission environment? Yes * Has this patient been hospitalized within the prior 30 days at any hospital? Yes Coverage Notice Reviewer: [id number] Riccardo Zavala Notice Issued Date-Time: 02/23/2019 16:16 Notice Type: Patient Choice Letter Notice Delivered To: Patient Relationship to Patient: Self Leadite Man Name: Delivery Method: HAND - Hand Delivered Keshia Days: Prior Verbal Notification: Recipient Understood Notice: Yes Recipient Signature: Yes Med Rec Note Co-signed by Attending: Coverage Notice Comment: LILLIAN for [facility] inpatient rehab Reviewer: [id number] Riccardo Zavala Notice Issued Date-Time: 02/24/2019 13:08 Notice Type: Patient Choice Letter Notice Delivered To: Patient Relationship to Patient: Self Leadite Man Name: Delivery Method: HAND - Hand Delivered Keshia Days: Prior Verbal Notification: Recipient Understood Notice: Yes Recipient Signature: Yes Med Rec Note Co-signed by Attending: Coverage Notice Comment: LILLIAN for [facility] and also [facility] if denied rehab Reviewer: [id number] Riccardo Zavala Notice Issued Date-Time: 02/28/2019 13:10 Notice Type: IM Discharge Notice Notice Delivered To: Patient Relationship to Patient: Self Leadite Man Name: Delivery Method: HAND - Hand Delivered Keshia Days: Prior Verbal Notification: Recipient Understood Notice: Yes Recipient Signature: Yes Med Rec Note Co-signed by Attending: Coverage Notice Comment: IMM explained, signed, given, copy placed in MR Last DP export: 02/28/19 1:55 Patient Name: LYLE VILLA Page [phone] at 1411 All edits/amendments must be made on the electronic document DICTATION DATE: 03/02/191409 PUDDLER PILE DRIVING: SIMON 03/02/191409 RPT#: [id number] DC DATE:02/28/19 STATUS: DIS IN [facility] [address] [place] [address] END OF REPORT
== END 2019-02-28 16:51 | disposition home health service (06) | DRG 640 ==
LOC: D.ER 11:54 → D.MS 14:09
PROVIDERS: Family Medicine; Internal Medicine Nephrology; ADMIT Emergency Medicine; ATTEND Emergency Medicine
DX: E83.42 Hypomagnesemia (principal); E43 Unspecified severe protein-calorie malnutrition; R44.3 Hallucinations, unspecified; N39.0 Urinary tract infection, site not specified; C77.9 Secondary and unspecified malignant neoplasm of lymph node, unspecified; G89.29 Other chronic pain; E87.6 Hypokalemia; R27.0 Ataxia, unspecified; C43.9 Malignant melanoma of skin, unspecified; D64.9 Anemia, unspecified; Z91.81 History of falling; E83.52 Hypercalcemia; R60.0 Localized edema; I10 Essential (primary) hypertension

== ENCOUNTER 2019-03-07 09:24 | Inpatient (IN) | payer MEDICARE ==
[~2019-03-07] VITALS: Ht 180.3 cm; Wt 75.0 kg
[2019-03-07 10:08] LABS: UDS - AMPHET NEGATIVE QUAL (NEGATIVE); UDS - BARB NEGATIVE QUAL (NEGATIVE); UDS - BENZO NEGATIVE QUAL (NEGATIVE); UDS - COCAINE NEGATIVE QUAL (NEGATIVE); UDS - OPIATE POSITIVE QUAL (NEGATIVE); UDS - PCP NEGATIVE QUAL (NEGATIVE); UDS - THC NEGATIVE QUAL (NEGATIVE)
[2019-03-07 10:19] LABS: APTT 25.7 SECONDS (22.8-39.4); INR 1.11 (0.85-1.17); PROTIME 13.8 SECONDS (11.6-15.0)
[2019-03-07 10:20] LABS: BASOPHILS 0.1 % (0-2); EOSINOPHILS 0 % (0-7); HEMATOCRIT 35.4 % (36.0-48.0); HEMOGLOBIN 11.2 g/dL (12-16); IMMATURE GRANULOCYTES 0.1 % (0-5); LYMPHOCYTES 7.7 % (15-50); MCH 25.9 pg (26.0-34.0); MCHC 31.6 g/dL (31.0-37.0); MCV 81.8 fL (80.0-100.0); MEAN PLATELET VOLUME 10.1 fL (7.4-10.4); MONOCYTES 6.6 % (2-11); NEUTROPHILS 85.5 % (40-80); PLATELET COUNT 203 10x3/uL (130-400); RBC 4.33 10x6/uL (4.00-5.40); RDW 14.4 % (11.5-14.5); WBC 7.5 10x3/uL (4.8-10.8)
[2019-03-07 10:46] LABS: ALBUMIN 2.8 g/dL (3.4-5.0); ALKALINE PHOSPHATASE 86 U/L (46-116); ALT (SGPT) 21 U/L (10-68); BILIRUBIN - TOTAL 0.73 mg/dL (0.2-1.3); CALC OSMOLALITY 278 mosm/kg (275-300); CARBON DIOXIDE 26.9 mmol/L (21.0-32.0); CHLORIDE - SERUM 99 mmol/L (98-107); CKMB 1.3 U/L (0.0-3.6); CREATINE KINASE 33 UL (21-215); CREATININE - SERUM 0.8 mg/dL (0.6-1.3); GLUCOSE 112 mg/dL (74-106); MAGNESIUM - SERUM 1.8 mg/dL (1.8-2.4); POTASSIUM - SERUM 4.2 mmol/L (3.5-5.1); PROTEIN - SERUM 6.2 g/dL (6.4-8.2); SODIUM 136 mmol/L (136-145); T4 THYROXINE 8.8 ug/dL (4.7-13.3); THYROID STIMULATING HORMONE 0.83 uIU/mL (0.36-3.74); TROPONIN-I < 0.017 ng/mL (0.000-0.060); UREA NITROGEN 29 mg/dL (7-18); eGFR NON AFRICAN AMERICAN 73 mL/min (90-120)
[2019-03-07 10:48] LABS: CALCIUM 13.2 mg/dL (8.5-10.1)
[2019-03-07 10:50] LABS: APPEARANCE CLEAR (CLEAR); BACTERIA FEW /hpf (NEGATIVE); BILIRUBIN NEGATIVE (NEGATIVE); COLOR YELLOW (YELLOW); EPITHELIAL CELLS 0-5 /hpf (0-5); GLUCOSE NEGATIVE (NEGATIVE); KETONE SMALL mg/dL (NEGATIVE); MUCUS <1+ /lpf (NONE SEEN); NITRITE NEGATIVE (NEGATIVE); PROTEIN TRACE mg/dL (NEGATIVE); RED CELLS - URINE NONE SEEN /hpf (0-5); SPECIFIC GRAVITY 1.025 (1.005-1.020); UROBILINOGEN NORMAL (NORMAL); WHITE CELLS - URINE 0-5 /hpf (NEGATIVE)
--- NOTE | 2019-03-07 13:34 | NUR ---
PATIENT IS AWAKE AND ALERT , SHE IS RESTING QUIETLY AT THIS TIME. SHE REPORTS HALLUCINATIONS. SHE JUST ARRIVED HERE FROM THE ED. DAUGHTER IS HERE AND SHE IS HELPING SOME WITH HISTORY AND ADMISSION.
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
[2019-03-07 14:00] VITALS: BP 105/54; BMI 22.2
[2019-03-07] MEDS ORDERED: PEMBROLIZUMAB (14:24)
[2019-03-07] MEDS ORDERED: DILAUDID2 MG PO (14:24)
[2019-03-07 17:27] VITALS: BP 105/54
--- NOTE | 2019-03-07 18:08 | NUR ---
DIGNA TOLD SNEHAA THAT PATIENT COULD NOT GO DUE TO HIGH CALCIUM. I CALLED FRANK PERALTA AND SHE SAID DR BURNS HAD AGREED THAT THE PATIENT COULD BE MOVED TO HALFWAY EVEN THOUGH SHE HAS ELEVATED CALCIUM. HOWEVER, I REPORTED THE DIARREAH, AND PAIN, NAUSEA, AND THE CRITICAL HIGH LABS, AND KATHRYN SAID NO, SHE CAN NOT LEAVE YET WITH ALL OF THAT HAPPENING. SO I ORDERED HER PAIN MED TO START BACK UP, SHE NEEDS A URINE SAMPLE, AND A STOOL SAMPLE NOW TO CHECK FOR CDIFF. SHE IS LAYING IN BED RESTING AT THIS TIME. REORDERED HER PAIN MEDICATION.
--- NOTE | 2019-03-07 19:25 | NUR ---
PT RESTING QUIETLY. EYES CLOSED BUT WAKES TO VERBAL STIMULI. CL IN REACH. DENIES NEEDS AT THIS TIME. BED IN LOW SIDE RAILS X2. FALL PRECAUTIONS IN PLACE. CONFUSED AT TIMES. RESP EVEN AND UNLABORED. LUNGS CLEAR BOWEL ACTIVE X4. WILL CONTINUE TO MONITOR.
[2019-03-07 20:00] VITALS: BP 100/64
[2019-03-08 00:09] VITALS: BP 106/47
--- NOTE | 2019-03-08 02:09 | NUR ---
I have reviewed this patient and I concur with the Shift Assessment completed by the Licensed Practical Nurse today this shift.
[2019-03-08 04:00] VITALS: BP 112/64
[2019-03-08 05:11] LABS: BASOPHILS 0.2 % (0-2); EOSINOPHILS 0.7 % (0-7); HEMATOCRIT 31.2 % (36.0-48.0); HEMOGLOBIN 9.7 g/dL (12-16); IMMATURE GRANULOCYTES 0.4 % (0-5); LYMPHOCYTES 16.4 % (15-50); MCH 25.4 pg (26.0-34.0); MCHC 31.1 g/dL (31.0-37.0); MCV 81.7 fL (80.0-100.0); MEAN PLATELET VOLUME 10.3 fL (7.4-10.4); MONOCYTES 11.1 % (2-11); NEUTROPHILS 71.2 % (40-80); PLATELET COUNT 177 10x3/uL (130-400); RBC 3.82 10x6/uL (4.00-5.40); RDW 14.7 % (11.5-14.5)
[2019-03-08 05:22] LABS: WBC 4.5 10x3/uL (4.8-10.8)
[2019-03-08 05:44] LABS: ALBUMIN 2.3 g/dL (3.4-5.0); BILIRUBIN - TOTAL 0.63 mg/dL (0.2-1.3); CALCIUM 11.6 mg/dL (8.5-10.1); CARBON DIOXIDE 27.7 mmol/L (21.0-32.0); CREATININE - SERUM 0.9 mg/dL (0.6-1.3); POTASSIUM - SERUM 3.7 mmol/L (3.5-5.1); PROTEIN - SERUM 5.3 g/dL (6.4-8.2); URIC ACID 5.5 mg/dL (2.6-7.2)
--- NOTE | 2019-03-08 08:10 | NUR ---
CONFUSED. RIGHT CHEST PORT WITH NS AT 75. ALERT. PLACED ON BEDPAN. BED ALARM ON WITH SR UP AND CALL LIGHT IN REACH. NO DISTRESS NOTED
[2019-03-08 09:19] VITALS: BP 105/48
[2019-03-08 10:45] VITALS: Ht 180.3 cm; Wt 75.0 kg
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
--- NOTE | 2019-03-08 12:06 | NUR ---
I have reviewed this patient and I concur with the Shift Assessment completed by the Licensed Practical Nurse today this shift.
[2019-03-08 12:13] VITALS: BP 108/54
--- NOTE | 2019-03-08 14:06 | NUR ---
LYING QUIETLY. NO NEEDS NOTED. CALL LIGHT IN REACH WITH SR UP
[2019-03-08 17:43] VITALS: BP 112/74
--- NOTE | 2019-03-08 19:28 | NUR ---
AROUSES WITH ME IN ROOM AND DENIES NEEDS AT THIS TIME BED IS LOW AND LOCKED PT TELLS ME OF HER FUTURE NEEDS AND CALL LIGHT IS WITH PT
[2019-03-08 20:00] VITALS: BP 110/55
--- NOTE | 2019-03-08 22:31 | NUR ---
I have reviewed this patient and I concur with the Shift Assessment completed by the Licensed Practical Nurse today this shift.
[2019-03-09] VITALS: BP 115/57
[2019-03-09 04:00] VITALS: BP 121/55
[2019-03-09 05:18] LABS: BASOPHILS 0.2 % (0-2); EOSINOPHILS 0.2 % (0-7); HEMATOCRIT 32.7 % (36.0-48.0); HEMOGLOBIN 10.2 g/dL (12-16); IMMATURE GRANULOCYTES 0.2 % (0-5); LYMPHOCYTES 11.8 % (15-50); MCH 25.4 pg (26.0-34.0); MCHC 31.2 g/dL (31.0-37.0); MCV 81.5 fL (80.0-100.0); MEAN PLATELET VOLUME 9.7 fL (7.4-10.4); MONOCYTES 7.7 % (2-11); NEUTROPHILS 79.9 % (40-80); PLATELET COUNT 170 10x3/uL (130-400); RBC 4.01 10x6/uL (4.00-5.40); RDW 14.4 % (11.5-14.5); WBC 4.4 10x3/uL (4.8-10.8)
[2019-03-09 05:38] LABS: ALBUMIN 2.2 g/dL (3.4-5.0); ALKALINE PHOSPHATASE 65 U/L (46-116); ALT (SGPT) 17 U/L (10-68); BILIRUBIN - TOTAL 0.53 mg/dL (0.2-1.3); CALC OSMOLALITY 278 mosm/kg (275-300); CALCIUM 11.4 mg/dL (8.5-10.1); CARBON DIOXIDE 27.4 mmol/L (21.0-32.0); CHLORIDE - SERUM 104 mmol/L (98-107); CREATININE - SERUM 0.7 mg/dL (0.6-1.3); GLUCOSE 98 mg/dL (74-106); POTASSIUM - SERUM 3.6 mmol/L (3.5-5.1); PROTEIN - SERUM 5.2 g/dL (6.4-8.2); SODIUM 138 mmol/L (136-145); eGFR NON AFRICAN AMERICAN 85 mL/min (90-120)
[2019-03-09 05:40] LABS: UREA NITROGEN 20 mg/dL (7-18)
--- NOTE | 2019-03-09 07:40 | NUR ---
2MG OF DILAUDID GIVEN FOR PAIN LEVEL OF 10/10. PT ALSO ASKING ABOUT HOME MEDICATIONS, INFORMED PT THAT DOCTOR WOULD HAVE TO ORDER THEM. PT DENIES ANY OTHER NEEDS AT THIS TIME. CALL LIGHT IN REACH, NAD NOTED, WILL CONTINUE TO MONITOR.
[2019-03-09 08:07] VITALS: BP 123/59
[2019-03-09 11:05] VITALS: BP 104/54
--- NOTE | 2019-03-09 13:55 | NUR ---
WENT TO ANSWER CALL LIGHT. PT IN TEARS JUST GOT DONE WALKING WITH PHYSICAL THERAPY, AND PT RT ARM IS REALLY HURTING. GAVE 2MG OF DILAUDID FOR PAIN LEVEL OF 10/10. ALSO HUNG IV AREDIA. PT DENIES ANY OTHER NEED AT THIS TIME. CALL LIGHT IN REACH, NAD NOTED, WILL CONTINUE TO MONITOR.
--- NOTE | 2019-03-09 14:00 | NUR ---
BED BATH WITH COMPLETE LINEN CHANGE. ELEVATED RT ARM ON PILLOW AND BRIDGED PT'S HEEL. PT DENIES ANY NEEDS AT THIS TIME. CALL LIGHT IN REACH, NAD NOTED,W WILL CONTINUE TO MONITOR.
--- NOTE | 2019-03-09 14:17 | NUR ---
PROVIDED DRESSING CHANGE TO RT CHEST INFUSAPORT. PT RESTING COMFORTABLY IN BED, DENIES ANY NEEDS AT THIS TIME, CALL LIGHT N REACH, NAD NOTED, WILL CONTINUE TO MONITOR.
[2019-03-09 15:16] VITALS: BP 133/61
[2019-03-09 20:00] VITALS: BP 126/62
[2019-03-10] VITALS (7 sets, daily range): BP systolic 118–146; BP diastolic 52–74
--- NOTE | 2019-03-10 02:42 | NUR ---
LYING IN BED RESTING WITH EYES CLOSED. EASILY AWAKEN DURING VOICE STIMULI. RESPIRATIONS EVEN AND UNLABORED. COMPLAINED OF PAIN TO RIGHT ARM PRN PAIN MEDICATION GIVEN FOR 10/10 PAIN LEVEL. REASSESMENT PAIN LEVEL IS A 3/10. REPOSTIONED FOR COMFORT. BOWEL SOUNDS ACTIVE x4. ALERT AND ORINTED X3. UP WITH ASSIST. USES BEDPAN FOR TOILETING. NO BM REPORTED AT THIS TIME. RESERVE RIGHT ARM. PT IS ADVISED TO CALL FOR HELP WHEN NEEDING ASSISTANCE. CALL LIGHT IS WITHIN REACH, BED ALARM IS ON AND ACTIVATED, BED IN LOWEST POSITION. WILL CONTINUE TO MONITOR.
--- NOTE | 2019-03-10 03:05 | NUR ---
I have reviewed this patient and I concur with the Shift Assessment completed by the Licensed Practical Nurse today this shift.
[2019-03-10 05:03] LABS: BASOPHILS 0.2 % (0-2); EOSINOPHILS 0 % (0-7); HEMATOCRIT 32.6 % (36.0-48.0); HEMOGLOBIN 10.3 g/dL (12-16); LYMPHOCYTES 16.9 % (15-50); MCH 25.9 pg (26.0-34.0); MCHC 31.6 g/dL (31.0-37.0); MCV 81.9 fL (80.0-100.0); MEAN PLATELET VOLUME 9.4 fL (7.4-10.4); MONOCYTES 9.5 % (2-11); NEUTROPHILS 73.4 % (40-80); PLATELET COUNT 170 10x3/uL (130-400); RBC 3.98 10x6/uL (4.00-5.40); RDW 14.4 % (11.5-14.5); WBC 4.6 10x3/uL (4.8-10.8)
[2019-03-10 05:19] LABS: ALBUMIN 2.2 g/dL (3.4-5.0); ALKALINE PHOSPHATASE 63 U/L (46-116); ALT (SGPT) 15 U/L (10-68); BILIRUBIN - TOTAL 0.46 mg/dL (0.2-1.3); CARBON DIOXIDE 27.8 mmol/L (21.0-32.0); CHLORIDE - SERUM 105 mmol/L (98-107); CREATININE - SERUM 0.7 mg/dL (0.6-1.3); GLUCOSE 97 mg/dL (74-106); SODIUM 137 mmol/L (136-145); eGFR NON AFRICAN AMERICAN 85 mL/min (90-120)
[2019-03-10 05:20] LABS: CALC OSMOLALITY 273 mosm/kg (275-300); POTASSIUM - SERUM 4.2 mmol/L (3.5-5.1); UREA NITROGEN 13 mg/dL (7-18)
--- NOTE | 2019-03-10 11:43 | NUR ---
OT NOTE: COMPLETED EVAL AND TMT ON PT . REFER TO EVAL FOR CURRENT FUNCTIONAL STATUS. ([phone])
--- NOTE | 2019-03-10 12:40 | NUR ---
IVF DC'D ORDERED. PT IS RESTING QUIETLY WITHOUT SIGNS OF DISTRESS.
--- NOTE | 2019-03-10 15:24 | NUR ---
I have reviewed this patient and I concur with the Shift Assessment completed by the Licensed Practical Nurse today this shift.
--- NOTE | 2019-03-10 17:12 | NUR ---
OT NOTE: PT COMPLETED BED MOB WITH MOD A. PT COMPLETED UB HYGIENE WITH MIN A. PT COMPLETED UE AROM AXS. [phone] THANK YOU, ELLIE JENSEN
--- NOTE | 2019-03-10 19:49 | NUR ---
EVENING ROUNDS COMPLETE, PT LAYING IN BED, NO SIGNS OF DISTRESS. PT IS CONFUSED AT THIS TIME. PT DENIES ANY PAIN OR NEEDS AT THIS TIME. CL IN REACH, BED IN LOWEST POSITION.
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
[2019-03-11 03:50] VITALS: BP 128/60
[2019-03-11 05:04] LABS: BASOPHILS 0.2 % (0-2); EOSINOPHILS 0 % (0-7); HEMOGLOBIN 10.5 g/dL (12-16); IMMATURE GRANULOCYTES 0.2 % (0-5); LYMPHOCYTES 16.3 % (15-50); MCH 25.2 pg (26.0-34.0); MCHC 30.9 g/dL (31.0-37.0); MCV 81.7 fL (80.0-100.0); MEAN PLATELET VOLUME 9.5 fL (7.4-10.4); MONOCYTES 8.7 % (2-11); NEUTROPHILS 74.6 % (40-80); PLATELET COUNT 193 10x3/uL (130-400); RBC 4.16 10x6/uL (4.00-5.40); RDW 14.6 % (11.5-14.5); WBC 4.9 10x3/uL (4.8-10.8)
[2019-03-11 05:40] LABS: ALBUMIN 2.1 g/dL (3.4-5.0); ALKALINE PHOSPHATASE 70 U/L (46-116); ALT (SGPT) 16 U/L (10-68); BILIRUBIN - TOTAL 0.46 mg/dL (0.2-1.3); CALC OSMOLALITY 274 mosm/kg (275-300); CALCIUM 10.8 mg/dL (8.5-10.1); CARBON DIOXIDE 27.6 mmol/L (21.0-32.0); CHLORIDE - SERUM 106 mmol/L (98-107); CREATININE - SERUM 0.6 mg/dL (0.6-1.3); GLUCOSE 91 mg/dL (74-106); POTASSIUM - SERUM 3.9 mmol/L (3.5-5.1); PROTEIN - SERUM 4.9 g/dL (6.4-8.2); SODIUM 138 mmol/L (136-145); UREA NITROGEN 11 mg/dL (7-18); eGFR NON AFRICAN AMERICAN > 90 mL/min (90-120)
--- NOTE | 2019-03-11 07:10 | NUR ---
REPORT RECEIVED FROM BUSINESS PROFESSOR ANDPATIENT CARE ASSUMED. PATIENT LAYING IN BED ON BACK WITH EYES CLOSED AND BREATHING EVENLY. PATIENT IS STABLE AND VSS. WILL CONTINUE TO MONITOR. SR UPX 2 BED IN LOW POSITION AND CALL LIGHT IN REACH.
[2019-03-11 09:50] VITALS: BP 135/76
--- NOTE | 2019-03-11 09:53 | NUR ---
Nutrition Follow-up: Pt reports poor appetite/PO intake and gets nauseous when she eats. Noted edentulism; reports dentures "make me sick". Agreed to try Ensure. Diet: Cardiac PO intake: 10-25% Wt: 165# (03/11); 159# (03/07) Last BM: 03/10 Labs noted: Ca 10.8, Alb 2.1 Meds noted: Protonix, Zofran (PRN) -Added dental soft to current diet order. -Send Ensure with lunch today. -Rec appetite stimulant. -RD following.
--- NOTE | 2019-03-11 11:10 | NUR ---
OT NOTE: MIN/MOD ASSIST FOR SUPINE TO SIT; A/A AND PROM EXS WITH R UE. PT WITH VERY MINIMAL SHOULDER STRENGTH.. ABLE TO PERFORM AROM EXS WITH ELBOW, WRIST, AND FINGERS. PERFORMED GROSS MOTOR STRENGTHENING EXS WITH R HAND. ABLE TO AMB WITH WALKER, IV, AND MIN/MOD ASSIST APPROX 40 FT... VERY FATIGUED WHEN BACK TO BED. C/O PAIN OF 9/10 IN R UPPER TRAPS ON R SIDE. MIN ASSIST TO ADÁN GOWN AND SET UP TO WASH FACE AND HANDS WITH WASH CLOTH. MOD ASSIST TO ADÁN SOCKS. PERNELL DUMONT, OTR/L
--- NOTE | 2019-03-11 11:18 | NUR ---
OT NOTE ADDENDUM: BACK TO BED WITH MOD ASSIST. EDUCATED PT ON EXS TO PERFORM IN BED INCLUDING SROM EXS. PERNELL DUMONT, OTR/L [phone]
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
--- NOTE | 2019-03-11 13:50 | NUR ---
PATIENT IS STABLE AND VSS. PATIENT DENIES ANY NEEDS OR PAIN. DTR IN LAW AT BS. ORDER RECEIVED FOR DC. WRITTEN AND VERBAL INSTRUCTIONS GIVEN TO PATIENT AND FAMILY. BOTH VERBBALIZED UNDERSTANDING AND PATIENT INITIALED PAPERWORK. PATIENT DC TO INPATIENT REHAB. PAIENT TO REHAB VIA WC ACCOMPANIED BY HOSPITAL PERSONNEL.
[2019-03-11] MEDS ORDERED: ZESTRIL10 MG PO (16:49)
[2019-03-11] MEDS ORDERED: HYDROCHLOROTH12.5 M1 PO (16:50)
[2019-03-11] MEDS ORDERED: ZYLOPRIM100 MG (16:53)
[2019-03-11] MEDS ORDERED: DURAGESIC1 PATCH .1 TD (16:53)
[2019-03-11] MEDS ORDERED: ZOFRAN4 MG PO (16:54)
--- NOTE | 2019-03-11 17:01 | NUR ---
OT NOTE: PT REQUIRED MOD A FOR SUPINE TO SIT. PT REQUIRED MIN A FOR SIT TO STAND . PT COMPLETED ADL MOB WITH MIN A. PT COMPLETED UB HYGIENE TASKS MIN A. PT EXHIBITED DECREASED AROM IN RUE. [phone] THANK YOU, ELLIE JENSEN
== END 2019-03-11 14:32 | disposition short-term general hospital (02) | DRG 70 ==
LOC: D.ER 09:24 → D.M2 11:57
PROVIDERS: Family Medicine; ADMIT Internal Medicine Nephrology; ATTEND Internal Medicine Nephrology
DX: G93.41 Metabolic encephalopathy (principal); E43 Unspecified severe protein-calorie malnutrition; N17.9 Acute kidney failure, unspecified; F03.91 Unspecified dementia, unspecified severity, with behavioral disturbance; E83.52 Hypercalcemia; F03.90 Unspecified dementia, unspecified severity, without behavioral disturbance, psychotic disturbance, mood disturbance, and anxiety; C43.9 Malignant melanoma of skin, unspecified; I10 Essential (primary) hypertension; F32.9 Major depressive disorder, single episode, unspecified; D63.0 Anemia in neoplastic disease; Z68.22 Body mass index [BMI] 22.0-22.9, adult; G89.3 Neoplasm related pain (acute) (chronic); R19.7 Diarrhea, unspecified

== ENCOUNTER 2019-03-11 13:56 | Inpatient (IN) | payer MEDICARE ==
[~2019-03-11 13:56] MED LIST changes: +DILAUDID2 MG PO; +PEMBROLIZUMAB
--- NOTE | 2019-03-11 14:25 | NUR ---
RECEIVED PATIENT TO UNIT FROM [facility]. PATIENT ARRIVED VIA W/C. PT CALM, ALERT, COOPERATIVE, ORIENTED TO PERSON, PLACE, AND TIME. ANSWERS QUESTIONS APPROPRIATELY. VITAL SIGNS AND WEIGHT OBTAINED. NO S/S DISTRESS. TRANSFERS WITH ONE-PERSON ASSIST. CODE WORD LORI. CODE STATUS: FULL. SKIN ASSESSMENT PERFORMED PER Blayne ANGLIN RN AND REDDENED AREA TO BUTTOCKS. INFUSAPORT TO RIGHT CHEST. ASSISTED PT. TO DAYROOM TO JOIN PEERS.
[2019-03-11] MEDS ORDERED: ZESTRIL10 MG PO (16:49)
[2019-03-11] MEDS ORDERED: HYDROCHLOROTH12.5 M1 PO (16:50)
[2019-03-11] MEDS ORDERED: ZYLOPRIM100 MG (16:53)
[2019-03-11] MEDS ORDERED: DURAGESIC1 PATCH .1 TD (16:53)
[2019-03-11] MEDS ORDERED: ZOFRAN4 MG PO (16:54)
[2019-03-11 16:55] VITALS: BP 129/79
[2019-03-11 18:47] LABS: CHOL - HDL RATIO 4.2 ratio (2.3-4.1); LDL-HDL RATIO 1.7 ratio (1.5-3.5)
--- NOTE | 2019-03-11 18:49 | NUR ---
PATIENT DAUGHTER BROUGHT CLOTHING TO UNIT. DAUGHTER SPOKE WITH NURSE ABOUT PAIN MEDICATIONS. NURSE EXPLAINED THE DOCTOR WOULD BE THE DETERMINING FACTOR SINCE PAIN MEDICATIONS TEND TO CAUSE CONFUSION IN OLDER PEOPLE, BUT WITH CURRENT CONDITION IT WOULD BE CONSIDERED. DAUGHTER VOICED SOMEWHAT UNDERSTANDING. NURSE ASKED ABOUT A CODE STATUS NURSE ASKED IF A CODE STATUS WAS CORRECT. DAUGHTER SAID YES THEN ASKED THE NURSE WHAT WAS A FULL CODE WAS. NURSE EXPLAINED THAT IT WAS FULL LIFE SAVING MEASURES IN THE EVENT SOMETHING HAPPENS. WE WOULD DO CHEST COMPRESSIONS, MEDICATIONS AND DEFILLBRATION. DAUGHTER ASKED WHAT SHE NEEDED TO DO TO OBTAIN A DNR ORDER. NURSE EXPLAINED THAT SHE WOULD HAVE TO SPEAK TO HER MOTHER, SPEAK WITH THE DOCTOR. PT IS ALERT AND ORIENTED ENOUGH TO VOICE WHAT SHE WANTED WHEN ASKED. CLOTHES INVENTORY AND SHEET IN CHART.
[2019-03-11 20:10] VITALS: BP 135/66
--- NOTE | 2019-03-11 21:23 | NUR ---
RECEIVED IN DAYROOM. RESTING IN RECLINER WITH EYES OPEN. CALM AND COOPERATIVE WITH CARE AND ASSESSMENT. NO HALLUCINATIONS NOTED THIS EVENING. REDIRECT AND REORIENT NEEDED. CONTINUES TO SIT QUIETLY IN RECLINER AND WATCH TV AT THIS TIME. CONTINUE PLAN OF CARE.
[2019-03-12 06:54] LABS: BASOPHILS 0.2 % (0-2); EOSINOPHILS 0 % (0-7); HEMATOCRIT 34.5 % (36.0-48.0); HEMOGLOBIN 10.7 g/dL (12-16); IMMATURE GRANULOCYTES 0.3 % (0-5); LYMPHOCYTES 13.9 % (15-50); MCH 25.1 pg (26.0-34.0); MEAN PLATELET VOLUME 9.6 fL (7.4-10.4); MONOCYTES 10.2 % (2-11); NEUTROPHILS 75.4 % (40-80); PLATELET COUNT 181 10x3/uL (130-400); RBC 4.26 10x6/uL (4.00-5.40); RDW 14.7 % (11.5-14.5); WBC 5.9 10x3/uL (4.8-10.8)
[2019-03-12 07:21] LABS: ALBUMIN 2.3 g/dL (3.4-5.0); CALC OSMOLALITY 278 mosm/kg (275-300); CARBON DIOXIDE 25.6 mmol/L (21.0-32.0); CHLORIDE - SERUM 106 mmol/L (98-107); CREATININE - SERUM 0.6 mg/dL (0.6-1.3); GLUCOSE 98 mg/dL (74-106); SODIUM 139 mmol/L (136-145); eGFR NON AFRICAN AMERICAN > 90 mL/min (90-120)
[2019-03-12 07:23] LABS: UREA NITROGEN 14 mg/dL (7-18)
[2019-03-12 07:37] LABS: ALKALINE PHOSPHATASE 70 U/L (46-116); BILIRUBIN - TOTAL 0.37 mg/dL (0.2-1.3); CHOL - HDL RATIO 3.8 ratio (2.3-4.1); CHOLESTEROL, TOTAL 107 mg/dL (0-200); HDL CHOLESTEROL 28 mg/dL (32-96); LDL CHOLESTEROL 43 mg/dL (0-100); LDL-HDL RATIO 1.5 ratio (1.5-3.5); PROTEIN - SERUM 5.1 g/dL (6.4-8.2); TRIGLYCERIDE 180 mg/dL (30-200)
[2019-03-12 07:38] LABS: ALT (SGPT) 24 U/L (10-68)
[2019-03-12 08:00] VITALS: BP 105/69
--- NOTE | 2019-03-12 08:50 | NUR ---
REC'D PT LAYING IN BED WITH EYES OPEN. NO ACUTE DISTRESS NOTED.
[2019-03-12 09:11] VITALS: BP 105/69
--- NOTE | 2019-03-12 09:53 | NUR ---
APPLIED FENTANYL PATCH TO UPPER LEFT SHOULDER. TIME, DATE AND INTIAL ON PATCH.
--- NOTE | 2019-03-12 11:30 | NUR ---
The patient's daughter came to the rehab door and asked to visit. She did not say she was the daughter. She also did not have the code word. Had the MHT ask the patient if she wanted a visitor and the patient said "No, I just don't think so." Told the patient's daughter and also explained that visitation is from 3:30 to 5:00 pm. The daughter said "Ok" After the conversation spoke to the patient myself and asked her if she wanted a visit later from her daughter and she said "Oh, yes, I guess that will be fine." Explained to her that she may call her daughter before visitation to give her the code word and to let her know she can visit. She said "Ok." Right now she is resting in a recliner and trying to sleep.
--- NOTE | 2019-03-12 11:36 | NUR ---
SPOKE WITH DAUGHTER ABOUT HOW HER MOTHER WAS DOING. PASSCODE GIVEN: LORI. DAUGHTER ASKED HER SISTER COMING TO VISIT. SHE SAID HER MOTHER REFUSED TO SEE HER WHEN SHE CALLED. THIS NURSE EXPLAINED THAT THE PERSON SHE SPOKE TO WAS UNDER THE IMPRESSION THAT SHE MEANT AT VISITATION THIS AFTERNOON. NURSE EXPLAINED THAT WE HAD SET VISITATION HOURS AND WE DID NOT ALLOW ANYONE TO COME VISIT OUTSIDE OF VISIT HOURS DESCRIBED IN THE HANDBOOK GIVEN TO THE FAMILY. DAUGHTER STATED SHE KNEW THE HOURS BUT HER SISTER DID NOT AND THAT HER MOTHER REFUSING TO SEE HER REALLY HURT HER FEELINGS. SHE IS A TIMID PERSON AND THAT REALLY HURT HER. NURSE EXPLAINED THAT WE ASKED PT AGAIN AFTER SPEAKING WITH THE DAUGHTER IF THEY COULD COME VISIT. SHE SAID THAT BE FINE. NURSE EXPLAINED THAT SHE COULD CALL BEFORE COMING TO VISITATION THIS AFTERNOON. DAUGHTER SAID HER SISTER WAS BACK ON HER WAY HOME NOW. NURSE TOLD HER THAT SHE WAS WELCOME TO COME TO AFTERNOON VISITATION. DAUGHTER STATED UNDERSTANDING AND SAID SHE WOULD TALK WITH HER SISTER.
[2019-03-12 11:55] VITALS: Wt 73.2 kg
--- NOTE | 2019-03-12 12:25 | NUR ---
PT C/O OF PAIN TO HER NECK AT A 10 ON A SCALE OF 1-10. NURSE ADMINISTERED HYDROMORPHONE 2 MG PER PRN ORDER. WILL RESSESS FOR EFFECTIVENESS.
--- NOTE | 2019-03-12 13:37 | NUR ---
PT STATED THE MEDICATION HELPED A LITTLE BIT WITH HER PAIN BUT ITS SO SEVERE SHE DOSENT KNOW WHAT WILL HELP. WILL ATTEMPT TO REPOSITION ON A EGG CRATE TO RELIEVE PRESSURE.
--- NOTE | 2019-03-12 14:53 | NUR ---
NURSE AND MHT ASSISTED PT TO TOILET. NURSE PLACED A EGG CRATE INTO PTS CHAIR. MHT AND NURSE ASSITED PT INTO A COMFORTABLE POSITION. APPLIED BARRIER CREAM TO PT BOTTOM. PT WAS VERY HELPFUL IN ASSISTANCE WITH TRANSFERS AND STANDING. WILL REPOSITION EVERY 2 HOURS TO PREVENT SKIN BREAKDOWN.
--- NOTE | 2019-03-12 16:18 | NUR ---
PT IS RESTING WELL AT THIS TIME. PT REFUSED TO EAT MUCH OF BREAKFAST AND LUNCH. PT STATED HER STOMACH COULDN'T TAKE IT. WILL CONT TO ENCOURAGE AND WATCH FOR OVERSEDATION DUE TO XANAX AND PAIN MEDICATION.
--- NOTE | 2019-03-12 17:53 | NUR ---
PATIENT NAPPED MOST OF THE AFTERNOON. PT ATE 60% OF DINNER AND DRANK 240 ML. PT STATED SHE FELT BETTER SINCE SHE GOT TO EAT SOMETHING. WILL CONT TO MONITOR
--- NOTE | 2019-03-12 19:28 | NUR ---
RECEIVED IN DAYROOM. SITTING WITH PEERS AT HER SIDE. CALM AND COOPERATIVE WITH CARE AND ASSESSMENT. NO SIGNS OF HALLUCINATIONS. ENCOURAGE TO EXPRESS NEEDS. CONTINUES TO SIT CALMLY IN DAYROOM. CONTINUE PLAN OF CARE
[2019-03-12 20:24] VITALS: BP 123/46
[2019-03-13 06:28] LABS: BASOPHILS 0.3 % (0-2); EOSINOPHILS 0 % (0-7); HEMATOCRIT 35.4 % (36.0-48.0); HEMOGLOBIN 10.7 g/dL (12-16); IMMATURE GRANULOCYTES 0.5 % (0-5); LYMPHOCYTES 21.5 % (15-50); MCH 24.7 pg (26.0-34.0); MCHC 30.2 g/dL (31.0-37.0); MCV 81.6 fL (80.0-100.0); MEAN PLATELET VOLUME 9.9 fL (7.4-10.4); MONOCYTES 10.5 % (2-11); NEUTROPHILS 67.2 % (40-80); RBC 4.34 10x6/uL (4.00-5.40); RDW 14.8 % (11.5-14.5); WBC 6.2 10x3/uL (4.8-10.8)
[2019-03-13 06:37] LABS: PLATELET COUNT 226 10x3/uL (130-400)
[2019-03-13 06:49] LABS: ALBUMIN 2.3 g/dL (3.4-5.0); ALKALINE PHOSPHATASE 66 U/L (46-116); ALT (SGPT) 25 U/L (10-68); BILIRUBIN - TOTAL 0.41 mg/dL (0.2-1.3); CALC OSMOLALITY 276 mosm/kg (275-300); CALCIUM 11.8 mg/dL (8.5-10.1); CARBON DIOXIDE 26.5 mmol/L (21.0-32.0); CHLORIDE - SERUM 105 mmol/L (98-107); CREATININE - SERUM 0.7 mg/dL (0.6-1.3); GLUCOSE 109 mg/dL (74-106); POTASSIUM - SERUM 4.1 mmol/L (3.5-5.1); PROTEIN - SERUM 5.2 g/dL (6.4-8.2); SODIUM 138 mmol/L (136-145); UREA NITROGEN 13 mg/dL (7-18); eGFR NON AFRICAN AMERICAN 85 mL/min (90-120)
[2019-03-13 08:17] VITALS: BP 103/63
--- NOTE | 2019-03-13 11:35 | NUR ---
PT C/O OF PAIN TO HER R SIDE OF NECK. HYDROMORPHONE 2 MG PO PRN FOR PAIN. WILL REASSESS FOR EFFECTIVENESS.
--- NOTE | 2019-03-13 13:58 | NUR ---
REC'D PT SITTING IN CHAIR WITH EYES CLOSED. RESP EVEN AND NONLABORED. NO DISTRESS NOTED. PT EASY TO AROUSE. ENCOURAGE TO EXPRESS NEEDS. PT IS CONTINENT OF BOWEL AND BLADDER. PT RIGHT ARM HAS A SLEEVE AND IS PROPPED UP ON A PILLOW FOR COMFORT. PT DID RECIEVE A MEDICATION FOR PAIN AND HAS A TRANSDERMAL PATCH 50 MCG FOR PAIN. OFFER TO REPOSITION PT Q 2 HOURS AND PRN NEEDED. PT CONTS TO EGG CRATE DUE TO C/O OF PAIN TO BUTTOCKS, AND REDNESS NOTED BY NURSE. BARRIER CREAM APPLIED NEEDED. PT IS ALERT TO PERSON, TIME WITH SOME CONFUSION NOTED. PT HAS HAD NO HALLUNCINATIONS NOTED OR REPORTED FROM OTHER SHIFT. PT IS EATING BETTER THIS BREAKFAST AND LUNCH. PLESANT WITH STAFF AND PEERS. PROVIDED PT WITH A BLANKET. CHAIR ALARM IN PLACE AND ACTIVE. WILL CONT PLAN OF CARE.
--- NOTE | 2019-03-13 19:00 | NUR ---
RECEIVED IN DAYROOM. RESTING IN RECLINER WITH EYES CLOSED. RESPONDS TO VOICE. CALM AND COOPERATIVE WITH CARE AND ASSESSMENT. NO SIGNS OF HALLUCINATIONS. REDIRECT AND REORIENT NEEDED. RESTING IN RECLINER WITH EYES CLOSED AT THIS TIME. CONTINUE PLAN OF CARE.
[2019-03-13 20:29] VITALS: BP 131/62
[2019-03-14 10:23] VITALS: BP 138/75
--- NOTE | 2019-03-14 13:20 | NUR ---
PT SITTING IN RECLINING CHAIR WITH EYES CLOSED. RESP EVEN AND UNLABORED. NO S/SX OF DISTRESS NOTED. PT EASY TO AROUSE. PT IS CONT OF B & b. RIGHT ARM SLEEVE IN PLACE. RIGHT ARM PROPPED UP ON A PILLOW FOR COMFORT. PT IS PLEASANT WITH STAFF AND PEERS. MED COMPLIANT. CALM AND COOPERATIVE WITH ASSESSMENT. NO BEHAVIORS NOTED AT THIS TIME. EGG CRATE IN PLACE TO RELIEF PRESSURE AND REDNESS TO BUTTOCKS. NO C/O PAIN OR DISCOMFORT AT THIS TIME. WILL CPOC.
--- NOTE | 2019-03-14 13:49 | PSY ---
PATIENT NAME:LYLE VILLA MEDICAL RECORD: [id number] : 36 LOCATION:[facility] ADMISSION DATE: 03/11/19 ACCOUNT: [id number] PSYCHIATRIC EVALUATION DATE OF EVALUATION: 03/12/19 IDENTIFYING DATA: The patient is 78 years old and she is admitted to the hospital on a voluntary basis. CHIEF COMPLAINT: Confusion and psychotic symptoms. HISTORY OF PRESENT ILLNESS: The patient is a very unfortunate woman who has metastatic malignant melanoma. She was admitted to the hospital a few days ago because of hallucinations and paranoia. She was also found to be hypercalcemic. She is currently receiving chemotherapy, but it is my understanding that the treatment is palliative and that her prognosis is poor. She apparently has been hallucinating, confused and disorganized. Today, she is partially oriented, but denies hallucinations. She endorses numerous depressive symptoms. PAST MEDICAL HISTORY: Significant for hypertension, malignant melanoma with involvement of the axillary right neck. PAST PSYCHIATRIC HISTORY: None. FAMILY HISTORY: Significant for cancer and diabetes. ALLERGIES: No known drug allergies. CURRENT MEDICATIONS: Include hydrocodone, Dilaudid, allopurinol, Zofran, Zestril, hydrochlorothiazide. SOCIAL HISTORY: The patient does not drink or use drugs. Her of 63 years recently. She has 3 adult children who are involved with her care. MENTAL STATUS EXAMINATION: The patient is awake, alert and oriented to person and place, but not to time or situation. Her mood is flat. Her affect is constricted. Thought processes are circumstantial. Memory, concentration, and abstraction abilities are moderately impaired and she denies that she would actively seek to harm herself or others. She denies active hallucinations. ASSETS: Supportive family members. LIABILITIES: Limited insight. DIAGNOSTIC IMPRESSION: AXIS I: Delirium; major depressive episode, severe, with psychotic symptoms. AXIS II: None. AXIS III: Hypertension, hypercalcemia. AXIS IV: Moderate. AXIS V: Global assessment of functioning is 30. PLAN: At this time, the patient is admitted to the hospital secondary to confusion and paranoia associated with a depressive illness and her cancer and cancer treatment. She will be comprehensively evaluated and treated with both mood stabilizing and antidepressant medications. Her long-term prognosis is guarded. TRANSINT:[id number] Voice Confirmation ID: [id number] DOCUMENT ID: [id number] EDILBERTO BURNS MD at 1349 CC: [id number] DICTATION DATE: 03/12/19 1359 COLD SAW OPERATOR: 03/12/19 1442 ADM IN [place] [id number] [place] [id number]
--- NOTE | 2019-03-14 13:49 | PN ---
PATIENT:LYLE VILLA MEDICAL RECORD: [id number] [facility] ADMISSION DATE: 03/11/19 PROGRESS NOTE DATE OF SERVICE: 03/13/2019 SUBJECTIVE: The patient's case was discussed with staff. She has no new complaint. OBJECTIVE: The patient is much more organized today. She is polite and cooperative and has no psychotic symptoms. ASSESSMENT: 1. Delirium. 2. Major depression. PLAN: The patient's psychotic symptoms seemed to have disappeared. She will be maintained on current medicines and I anticipate she can be transitioned out of the hospital soon. TRANSINT:[id number] Voice Confirmation ID: [id number] DOCUMENT ID: [id number] EDILBERTO BURNS MD at 1349 CC: [id number] DICTATION DATE: 03/13/19 1225 RISK CONTROL REPRESENTATIVE: 03/13/19 1235 ADM IN [place] [id number]
[2019-03-14 20:31] VITALS: BP 110/66
--- NOTE | 2019-03-14 20:45 | NUR ---
RECEIVED IN DAYROOM. SITTING IN A RECLINING CHAIR WITH PEERS AT HER SIDE. CALM AND COOPERATIVE WITH CARE AND ASSESSMENT. NO SIGNS OF HALLUCINATIONS. REDIERCT AND REORIENT NEEDED. RESTING IN BED WITH EYES CLOSED AT THIS TIME. CONTINUE PLAN OF CARE
--- NOTE | 2019-03-15 07:40 | NUR ---
The patient c/o pain rates it 10/10. Her right shoulder, arm, and hand are edematous and she says she is unable to lift it. Provided her Dilaudid PO, see MAR. The patient has her right arm propped on a pillow. She is drinking her iced water, sitting in a mukesh chair in the hallway.
--- NOTE | 2019-03-15 08:17 | NUR ---
Called and spoke to Marilee at Dr. Hardin'milton to let her know that the patient is here and Dr. Prado consulted Dr. Hardin. Marilee said she would let Dr. Hardin know when she gets in the clinic this am.
--- NOTE | 2019-03-15 08:35 | NUR ---
The patient is resting easily, no pain noted at this time.
[2019-03-15 10:10] VITALS: BP 90/50
--- NOTE | 2019-03-15 10:57 | NUR ---
Nutrition Follow-up: Chart reviewed. Noted that pt is c/o poor appetite and drinks Boost at home. Diet: Cardiac Mech Soft PO intake: ~24% average x last 9 meals Last BM: 03/11/19 x 4 days now. WT: 161# (03/13/19): admit wt: 161# (03/11/19) Meds and labs reviewed. Will add Boost to current diet order. Recommend continue current diet. Consider increase in bowel regimen to promote BM regularity and maybe help with appetite? Will continue to monitor PO intake and wt trend. May consider appetite stimulant if PO intake does not improve. RD following.
--- NOTE | 2019-03-15 15:10 | PN ---
PATIENT:LYLE VILLA MEDICAL RECORD: [id number] LOCATION:[facility] ADMISSION DATE: 03/11/19 PROGRESS NOTE DATE OF SERVICE: 03/14/2019 SUBJECTIVE: The patient's case was discussed with staff. She has no new complaint. OBJECTIVE: The patient denies intent to harm herself or others. She generally tolerates her medicines well. She is participating in treatment. ASSESSMENT: 1. Delirium. 2. Major depression. PLAN: Brief supportive and educational interventions were made. The patient is not having any of the hallucinations that brought her here. I think the primary obstacle to discharge right now would be determining the level of care that would best meet her needs. TRANSINT:[id number] Voice Confirmation ID: [id number] DOCUMENT ID: [id number] EDILBERTO BURNS MD at 1510 CC: [id number] DICTATION DATE: 03/14/19 1530 SCHOOL PHYSICAL THERAPIST: 03/14/19 1068 ADM IN [place] [id number] [place] [address]
[2019-03-15 22:07] VITALS: BP 160/74
--- NOTE | 2019-03-16 02:14 | NUR ---
B) Patient is alert and oriented to person, place and time, cooperative I) Administered scheduled medications as ordered, monitored for safety R) Mediation compliant, has limited mobility P) Continue plan of care.
[2019-03-16 09:25] VITALS: BP 93/53
--- NOTE | 2019-03-16 09:41 | PN ---
PATIENT:LYLE VILLA MEDICAL RECORD: [id number] LOCATION:[facility] ADMISSION DATE: 03/11/19 PROGRESS NOTE DATE OF SERVICE: 03/15/2019 SUBJECTIVE: The patient's case was discussed with staff. She has no new complaint. OBJECTIVE: The patient is in good behavioral control. She has limited insight about her condition. She is partially oriented. ASSESSMENT: 1. Delirium. 2. Major depression. PLAN: Current medicines have been reviewed and will be maintained. Prognosis is guarded. TRANSINT:[id number] Voice Confirmation ID: [id number] DOCUMENT ID: [id number] EDILBERTO BURNS MD at 0941 CC: [id number] DICTATION DATE: 03/15/19 1522 ALGOLOGY TEACHER: 03/15/19 2347 ADM IN [place] [address] [place] [address]
[2019-03-16 10:05] VITALS: BP 93/53
--- NOTE | 2019-03-16 12:41 | NUR ---
PT SITTING IN RECLINING CHAIR WITH EYES OPEN. RESP EVEN AND UNLABORED. NO S/SX OF DISTRESS NOTED.PT IS CALM AND COOPERATIVE WITH ASSESSMENT. PRESCRIBED MEDS PROVIDED ORDERED. MED COMPLIANT. PT IS CONT. OF B&B. RIGHT ARM SLEEVE IN PLACE. RIGHT ARM PROPPED UP ON A PILLOW FOR COMFORT. PT IS PLEASANTWITH STAFF ABD PEERS. NO BEHAVIORS NOTED. EGG CRATE IN PLACE TO HELP RELIEVE PRESSURE AND REDNESS TO BUTTOCKS. NO C/O PAIN OR DISCOMFORT AT THIS TIME. WILL CPOC.
--- NOTE | 2019-03-16 19:16 | NUR ---
RECEIVED IN DAYROOM. SITTING IN A RECLINING CHAIR. CALM AND COOPERATIVE WITH CARE AND ASSESSMENT. NO SIGNS OF HALLUCINATIONS. ENCOURAGE TO EXPRESS NEEDS. RESTING IN A RECLINER OUTSIDE OF NURSES STATION AT THIS TIME. CONTINUE PLAN OF CARE
[2019-03-16 20:29] VITALS: BP 140/65
[2019-03-17 06:29] LABS: ALBUMIN 2.2 g/dL (3.4-5.0); ALKALINE PHOSPHATASE 74 U/L (46-116); ALT (SGPT) 18 U/L (10-68); BILIRUBIN - TOTAL 0.52 mg/dL (0.2-1.3); CALC OSMOLALITY 270 mosm/kg (275-300); CARBON DIOXIDE 28.7 mmol/L (21.0-32.0); CHLORIDE - SERUM 100 mmol/L (98-107); CREATININE - SERUM 0.6 mg/dL (0.6-1.3); GLUCOSE 95 mg/dL (74-106); POTASSIUM - SERUM 4.9 mmol/L (3.5-5.1); SODIUM 135 mmol/L (136-145); UREA NITROGEN 15 mg/dL (7-18); eGFR NON AFRICAN AMERICAN > 90 mL/min (90-120)
[2019-03-17 06:51] LABS: CALCIUM 12.4 mg/dL (8.5-10.1)
--- NOTE | 2019-03-17 08:27 | NUR ---
Called Dr. Hardin's office and let the tube pusher know the patient has a critical potassium. Dr. Cardona aware also.
--- NOTE | 2019-03-17 09:26 | NUR ---
Dr. Hardin called back and she says the patient needs pulmonate or calcitonin, called [facility] Director and she says we can give the medication here as Wilfred Berman was unsure if she would need to be transferred back to the med floor. Called Dr. Hardin's office back to let her know we will need an order for pulmonate or calcitonin, the bilingual medical receptionist took our fax number and says she will have Wilfred Berman address this when she gets out of the meeting.
[2019-03-17 09:50] VITALS: BP 112/58
--- NOTE | 2019-03-17 10:30 | NUR ---
Called Kia SPARKS IV access nurse came and reaccessed the patient's right chest port. Started IV fluids. The patient tolerated it well.
--- NOTE | 2019-03-17 12:12 | NUR ---
The patient became nauseated and zofran provided.
--- NOTE | 2019-03-17 13:00 | NUR ---
Dr. Hardin here to visit the patient.
--- NOTE | 2019-03-17 13:43 | NUR ---
The patient is resting and she is not showing any nausea.
--- NOTE | 2019-03-17 14:21 | PN ---
PATIENT:LYLE VILLA MEDICAL RECORD: [id number] LOCATION:[facility] ADMISSION DATE: 03/11/19 PROGRESS NOTE DATE OF SERVICE: 03/16/2019 SUBJECTIVE: The patient's case was discussed with staff. She has no new complaint. OBJECTIVE: The patient is tolerating her medicines reasonably well. She has not been significantly agitated today. She is clearly impaired and confused and in my opinion has a dementia. ASSESSMENT: 1. Major depression. 2. Dementia. PLAN: Current medicines and therapies have been reviewed and will be maintained. Long-term prognosis is guarded. TRANSINT:[id number] Voice Confirmation ID: [id number] DOCUMENT ID: [id number] EDILBERTO BURNS MD at 1421 CC: [id number] DICTATION DATE: 03/16/19 1014 INDUSTRIAL TRACTOR DRIVER: 03/16/19 1251 ADM IN [facility] [address] [place] [address]
--- NOTE | 2019-03-17 15:48 | NUR ---
Nutrition Follow-up: Diet: Cardiac + Ensure with meals PO intake: <10% avg. x last 9 meals Last BM: 03/11/19, 6 days ago. WT: 161# (03/13/19); Admit wt: 161# (03/11/19) Meds and labs reviewed. Continue current diet. Encourage PO intake. Consider adding appetite stimulant as medically feasible. RD following.
[2019-03-18 00:28] VITALS: BP 134/70
--- NOTE | 2019-03-18 00:46 | NUR ---
REC'D SITTING IN THE DAYROOM. PLEASANT AND INTERACTIVE WITH STAFF WHEN APPROACHED. RUE WITH LYMPHEDEMA. ELEVATED ON A PILLOW. NS INFUSING AT 75CC/HR PER RIGHT INFUSAPORT. ADMINISTER MEDS AND MONITOR COMPLIANCE. MED COMPLIANT. CONTINUE POC AND PROVIDE SAFE ENVIRONMENT.
[2019-03-18 09:04] VITALS: BP 148/76
--- NOTE | 2019-03-18 09:38 | NUR ---
SERENITY SPOKE WITH PT'S DTR, YEIMY, TO DISCUSS PT'S DISCHARGE PLANS. SERENITY EXPLAINED THAT PT IS STILL HER OWN PERSON AND WANTS TO CONTINUE TREATMENT AND DR SPICER WANTS TO CONTINUE THE TREATMENT THINKING IT IS BENEFITING THE PT. SERENITY STATED SHE WILL DO A REFERRAL TO [facility] TO SEE IF THEY WILL ACCEPT PT. YEIMY VOICED UNDERSTANDING OF DISCUSSION.
--- NOTE | 2019-03-18 11:31 | NUR ---
Assisted the patient up this am. Attempted to dress her in clothes, but her right arm is too edematous. She is upset this am, she said she was put in a frozen bed last night then she mentioned giving up because she hurt too much, but after she woke up better she spoke in a more positive manner. Dr. Hardin came to see her and they prayed together. Her calcium today is also critically high. She still has her IV infusing at 75 ml/hr. through her right side port. Provide prescribed meds. The patient is compliant with meds. Continue POC.
--- NOTE | 2019-03-18 12:43 | NUR ---
Spoke to the patient this am asked her if she wanted to be on Hospice. She said "No, they're trying to talk me into it though." Did not discuss it further.
--- NOTE | 2019-03-18 13:15 | NUR ---
Rebeca Garzon RN said Dr. Hardin asked us to please call her daughter to get the compression sleeve. The patient has a full arm compression sleeve here. Called the daughter to see if she had one that goes to her shoulder she said she has the one full sleeve only. Will put that one on her after she has a pain pill to ease the pain.
--- NOTE | 2019-03-18 16:20 | PN ---
PATIENT:LYLE VILLA MEDICAL RECORD: [id number] LOCATION:[facility] ADMISSION DATE: 03/11/19 PROGRESS NOTE DATE OF SERVICE: 03/17/2019 SUBJECTIVE: The patient's case was discussed with staff. She has no new complaint. OBJECTIVE: The patient is in good behavioral control with limited insight about her condition. She has not been aggressive and has had no hallucinations. ASSESSMENT: 1. Dementia. 2. Depression. PLAN: Current medicines have been reviewed and will be maintained. Long-term prognosis is guarded. TRANSINT:[id number] Voice Confirmation ID: [id number] DOCUMENT ID: [id number] EDILBERTO BURNS MD at 1620 CC: [id number] DICTATION DATE: 03/17/19 1546 DRAWING IN HAND: 03/17/19 [address] [facility] [address] [place] [address]
[2019-03-18 20:00] VITALS: BP 115/64
--- NOTE | 2019-03-18 23:31 | NUR ---
B) Patient is alert and oriented to person and place, calm and cooperative, complains with transfers due to pain, I) Administered schduled medications as ordered, monitored for safety, monitored IV fluids R) Mediation compliant resting quietly now, P) Continue plan of care.
[2019-03-19 09:09] VITALS: BP 101/65
--- NOTE | 2019-03-19 09:44 | NUR ---
COMPLAINING OF NAUSEA- ZOFRAN 0.4 MG PO GIVEN.
--- NOTE | 2019-03-19 11:00 | NUR ---
PATIENT SAYS HER PAIN LEVEL IS AT #4 FOR NOW. PAIN MED NOT GIVEN AT THIS TIME.
--- NOTE | 2019-03-19 13:58 | PN ---
PATIENT:LYLE VILLA MEDICAL RECORD: [id number] LOCATION:[facility] ADMISSION DATE: 03/11/19 PROGRESS NOTE DATE OF SERVICE: 03/18/2019 SUBJECTIVE: The patient's case was discussed with staff. She has no new complaint. OBJECTIVE: The patient is in good behavioral control with limited insight about her condition. She is tolerating her medicines reasonably well. ASSESSMENT: 1. Dementia. 2. Major depression. PLAN: The patient will be maintained on current medicines, which I have reviewed. Her long-term prognosis is guarded. TRANSINT:[id number] Voice Confirmation ID: [id number] DOCUMENT ID: [id number] EDILBERTO BURNS MD at 1358 CC: [id number] DICTATION DATE: 03/18/19 165 BOX FINISHER: 03/18/19 1829 ADM IN [place] [address] [place] [address]
[2019-03-19 19:51] VITALS: BP 112/61
--- NOTE | 2019-03-19 20:25 | NUR ---
B.) PT IS ALERT AND ORIENTED TO SELF, SITUATION AND PLACE. SHE IS PLEASANT WITH STAFF AND PEERS. SHE IS RECEIVED IN HER JUAN-CHAIR. SHE HAS 1/2 NS RUNNING AT 75 ML/HR RUNNING INTO HER RIGHT CHEST PORT. FREE FROM SIGNS AND SYMPTOMS OF INFECTION. I.) PROVIDED PM MEDICATIONS. R.) PT IS COMPLIANT WITH ALL MEDICATIONS. P.) WILL CONTINUE TO MONITOR.
[2019-03-20 08:00] VITALS: BP 116/54
--- NOTE | 2019-03-20 08:39 | NUR ---
NAUSEA PRESENT.ZOFRAN 4MG PO WITH SIP OF WATER GIVEN.REPORTS PAIN TO RIGHT ARM AN 8.DILAUDID 2MG PO GIVEN.
--- NOTE | 2019-03-20 09:30 | NUR ---
PAIN AND NAUSEA RESOLVED.IS ORIENTED X 4.COMPLIANT WITH STAFF AND MEDS.RT ARM VERY SWOLLEN ,HAND 4+ EDEMA.COMPRESSION SLEEVE INTACT TO RT ARM.WILL CONTINUE WITH CURRENT PLAN OF CARE,MONITOR FOR SAFETY AND CHANGES.
[2019-03-20 09:57] LABS: CALC OSMOLALITY 269 mosm/kg (275-300); CALCIUM 11.4 mg/dL (8.5-10.1); CARBON DIOXIDE 25.8 mmol/L (21.0-32.0); CHLORIDE - SERUM 104 mmol/L (98-107); CREATININE - SERUM 0.5 mg/dL (0.6-1.3); GLUCOSE 105 mg/dL (74-106); POTASSIUM - SERUM 4.1 mmol/L (3.5-5.1); SODIUM 136 mmol/L (136-145); UREA NITROGEN 8 mg/dL (7-18); eGFR NON AFRICAN AMERICAN > 90 mL/min (90-120)
--- NOTE | 2019-03-20 11:17 | PN ---
PATIENT:LYEL VILLA MEDICAL RECORD: [id number] LOCATION:[facility] ADMISSION DATE: 03/11/19 PROGRESS NOTE DATE OF SERVICE: 03/19/2019 SUBJECTIVE: The patient's case was discussed with staff. She has no new complaint. OBJECTIVE: The patient has no psychotic symptoms. She is sleeping reasonably well. Unfortunately, she is not eating adequately. ASSESSMENT: 1. Dementia. 2. Major depression. PLAN: The patient will be treated with Megace to assist with appetite stimulation. She will be monitored for clinical changes associated with its use. Her long-term prognosis is guarded. TRANSINT:[id number] Voice Confirmation ID: [id number] DOCUMENT ID: [id number] EDILBERTO BURNS MD at 1117 CC: [id number] DICTATION DATE: 03/19/19 1428 OPERATORS SCHOOL MANAGER: 03/19/19 1517 ADM IN [facility] [address] [place] [address]
[2019-03-20 19:44] VITALS: BP 102/52
--- NOTE | 2019-03-20 20:53 | NUR ---
ERCEIVED IN DAYROOM. SITTING IN A RECLINER WITH PEERS AT HER SIDE. CALM AND COOPERATIVE WITH CARE AND ASSESSMENT. IV INFUSING. ENCOURAGE TO EXPRESS NEEDS. CONTINUES TO SIT QUIETLY IN DAYROOM. CONTINUE PLAN OF CARE
--- NOTE | 2019-03-21 08:00 | NUR ---
PT IS AWAKE AND ALERT X 4. CALM AND COOPERATIVE WITH ASSESSMENT. PRESCRIBED MEDS PROVIDED ORDERED. MED COMPLIANT. 4t EDEMA NOTED TO RIGHT ARM. SLEEVE INTACT TO RIGHT ARM. NO AGGRESSION OR BEHAVIORS NOTED. WILL CPOC.
--- NOTE | 2019-03-21 08:52 | NUR ---
Nutrition Follow-up: Chart reviewed. Noted pt started on Megace 03/19/19. Diet: Cardiac + Ensure with meals PO intake: <5% Last BM: 03/20/19. WT: 161# (03/20/19); Admit wt: 161# (03/11/19) Meds noted: megace, senokot. Labs reviewed. Continue current diet and oral supplements. Continue Megace as medically feasible. Continue encouraged PO intake. Hopefully PO intake will improve with appetite stimulant and BM regularity. Will continue to monitor. RD following.
[2019-03-21 09:38] VITALS: BP 90/47
--- NOTE | 2019-03-21 14:00 | PN ---
PATIENT:LYLE VILLA MEDICAL RECORD: [id number] LOCATION:[facility] ADMISSION DATE: 03/11/19 PROGRESS NOTE DATE OF SERVICE: 03/20/2019 SUBJECTIVE: The patient's case was discussed with staff. She has no new complaint. OBJECTIVE: The patient is not eating well, but she is sleeping well. Her mood has improved. ASSESSMENT: 1. Dementia. 2. Major depression. PLAN: The patient has no thoughts of harming herself or others. She is tolerating her medicines well. I anticipate she can be transitioned out of the hospital soon. TRANSINT:[id number] Voice Confirmation ID: [id number] DOCUMENT ID: [id number] EDILBERTO BURNS MD at 1400 CC: [id number] DICTATION DATE: 03/20/19 1200 INDUSTRIAL RELATIONS OFFICER: 03/20/19 1255 ADM IN [place] [id number] [place] [id number]
--- NOTE | 2019-03-21 14:05 | NUR ---
PT C/O RIGHT ARM PAIN. PAIN LEVEL 6/10 ON PAIN SCALE. PRN PAIN PILL PROVIDED ORDERED. WILL CPOC.
[2019-03-21 20:20] VITALS: BP 123/54
--- NOTE | 2019-03-21 21:18 | NUR ---
B.) PT IS ALERT AND ORIENTED X4. SHE IS RECEIVED IN HER JUAN-CHAIR. SHE IS PLEASANT WITH STAFF AND PEERS. SHE HAS NS RUNNING AT 30 ML/HR INTO HER RIGHT CHEST PORT. FREE FROM S&S OF INFECTION. SHE REQUESTED HER PRN DILAUDID FOR HER PAIN IN HER RIGHT ARM. I.) PROVIDED PM MEDICATIONS WELL PRN DILAUDID. R.) COMPLIANT WITH ALL MEDICATIONS. P.) WILL CONTINUE TO MONITOR.
--- NOTE | 2019-03-22 05:04 | NUR ---
PT FELL FROM BED IN PT ROOM. NO APPARENT INJURIES. VSS. FAMILY (YEIMY-DAUGHTER) NOTIFIED OF FALL. DR. CURRAN NOTIFIED OF FALL. ORDER RECEIVED DC IV. NEURO CHECK INITIATED. NO FURTHER ORDERS. WILL CONTINUE TO MONITOR. WELDING EQUIPMENT REPAIRER NOTIFIED OF PT FALL.
[2019-03-22 05:17] VITALS: BP 137/64
[2019-03-22 08:05] VITALS: BP 129/68
--- NOTE | 2019-03-22 10:00 | NUR ---
AWAKE AND ALERT X 4. CALM AND COOPERATIVE WITH CARE AND ASSESSMENT. ADMINISTER PRESCRIBED MEDICATIONS. MEDICATION COMPLIANT. MONITOR FOR SAFETY AND CHANGES. CONTINUE PLAN OF CARE.
--- NOTE | 2019-03-22 12:35 | PN ---
PATIENT:LYLE IBARRA MEDICAL RECORD: [id number] LOCATION:[facility] ADMISSION DATE: 03/11/19 PROGRESS NOTE DATE OF SERVICE: 03/21/2019 SUBJECTIVE: The patient's case was discussed with staff. She has no new complaint. OBJECTIVE: The patient is in good behavioral control with a euthymic mood. ASSESSMENT: 1. Dementia. 2. Major depression. PLAN: The patient has no evidence of dangerousness and is appropriate for discharge. Unfortunately, but there has been a new development that I should have been aware of, but was not. The daughter who is the primary caregiver cannot care for Ms. Ibarra and Ms. Ibarra is unable to care for herself. She is getting physical therapy and actually showing some improvement. The new plan is not to discharge her today, but to hopefully discharge her tomorrow to the [facility] for rehabilitation services. TRANSINT:[id number] Voice Confirmation ID: [id number] DOCUMENT ID: [id number] EDILBERTO BURNS MD at 1235 CC: [id number] DICTATION DATE: 03/21/19 1507 WORKDAY FINANCIALS CONSULTANT: 03/21/19 1818 ADM IN [facility] [address] [place] [address]
--- NOTE | 2019-03-22 12:49 | NUR ---
DILAUDID 0.4 MG PO GIVEN FOR ARM AND BACK PAIN AT LEVEL#9.
[2019-03-22] MEDS ORDERED: MEGACE40 MG PO (13:16)
[2019-03-22] MEDS ORDERED: XANAX0.25 MG PO (13:16)
[2019-03-22] MEDS ORDERED: Senokot TAB PO (13:16)
--- NOTE | 2019-03-22 13:30 | NUR ---
PAIN RESOLVED AND PATIENT DENIES ANY NAUSEA.
--- NOTE | 2019-03-22 19:50 | NUR ---
RECEIVED IN DAYROOM. SITTING IN A RECLINER WITH PEERS AT HER SIDE. CALM AND COOPERATIVE WITH CARE AND ASSESSMENT. ENCOURAGE TO EXPRESS. REDIRECT AND REORIENT EEDED. RESTING IN RECLINER IN DAYROOM AT THIS TIME. CONTINUE PLAN OF CARE
[2019-03-22 20:16] VITALS: BP 130/70
[2019-03-23 10:09] VITALS: BP 102/59
--- NOTE | 2019-03-23 13:45 | NUR ---
PT DISCHARGED HOME WITH DAUGHTER. ALL PAPERWORK FAXED AND COPY SENT WITH PT AT TIME OF DISCHARGE. NO S/SX OF DISTRESS NOTED.
--- NOTE | 2019-03-23 15:38 | PN ---
PATIENT:LYLE VILLA MEDICAL RECORD: [id number] LOCATION:[facility] ADMISSION DATE: 03/11/19 PROGRESS NOTE DATE OF SERVICE: 03/22/2019 SUBJECTIVE: The patient's case was discussed with staff. She has no new complaint. OBJECTIVE: The patient is ready for discharge and there are some issues regarding her placement at the assisted living center. Once those are worked out she can be transitioned out of the hospital. She has no evidence of psychotic symptoms and no evidence of dangerousness to herself or others. ASSESSMENT: 1. Dementia. 2. Major depression. PLAN: Current medicines and therapies have been reviewed and will be maintained. Long-term prognosis is guarded. TRANSINT:[id number] Voice Confirmation ID: [id number] DOCUMENT ID: [id number] EDILBERTO BURNS MD at 1538 CC: [id number] DICTATION DATE: 03/22/19 1252 VICE PRESIDENT OF INSTRUCTION: 03/22/19 1810 ADM IN [place] [address] [place] [address]
--- NOTE | 2019-03-24 15:12 | PN ---
PATIENT:LYLE VILLA MEDICAL RECORD: [id number] LOCATION:[facility] ADMISSION DATE: 03/11/19 PROGRESS NOTE DATE OF SERVICE: 03/23/2019 SUBJECTIVE: The patient's case was discussed with staff. She has no new complaint. OBJECTIVE: The patient is in good behavioral control with limited insight about her condition. She tolerates her medicines well. She is in good behavioral control and there is no evidence of acute or direct dangerousness. ASSESSMENT: 1. Dementia. 2. Major depression. PLAN: The patient will be transitioned out of the hospital today. Her long-term prognosis is guarded. TRANSINT:[id number] Voice Confirmation ID: [id number] DOCUMENT ID: [id number] EDILBERTO BURNS MD at 1512 CC: [id number] DICTATION DATE: 03/23/19 1609 BREAST SPLITTER: 03/24/19 0156 DIS IN 03/23/19 [place] [place] [address]
== END 2019-03-23 13:45 | disposition home or self-care (01) | DRG 885 ==
LOC: D.PSYCH 13:56
PROVIDERS: Family Medicine; ADMIT Psychiatry & Neurology Psychiatry; ATTEND Psychiatry & Neurology Psychiatry
DX: F33.3 Major depressive disorder, recurrent, severe with psychotic symptoms (principal); C79.9 Secondary malignant neoplasm of unspecified site; I10 Essential (primary) hypertension; E83.52 Hypercalcemia; R22.41 Localized swelling, mass and lump, right lower limb; M79.604 Pain in right leg; R27.0 Ataxia, unspecified; R63.0 Anorexia; K59.00 Constipation, unspecified; G89.3 Neoplasm related pain (acute) (chronic)

== ENCOUNTER 2019-04-01 18:45 | Observation (INO) | payer MEDICARE ==
[~2019-04-01] VITALS: Ht 180.3 cm; Wt 76.0 kg
[~2019-04-01 18:45] MED LIST changes: +DURAGESIC1 PATCH .1 TD; +HYDROCHLOROTH12.5 M1 PO; +MEGACE40 MG PO; +Senokot TAB PO; +XANAX0.25 MG PO; +ZESTRIL10 MG PO; +ZOFRAN4 MG PO; +ZYLOPRIM100 MG
[2019-04-01 19:44] LABS: APPEARANCE CLEAR (CLEAR); BILIRUBIN NEGATIVE (NEGATIVE); COLOR DK YELLOW (YELLOW); GLUCOSE NEGATIVE (NEGATIVE); KETONE SMALL mg/dL (NEGATIVE); NITRITE NEGATIVE (NEGATIVE); PROTEIN TRACE mg/dL (NEGATIVE); UROBILINOGEN NORMAL (NORMAL)
[2019-04-01 19:46] LABS: BACTERIA FEW /hpf (NEGATIVE); EPITHELIAL CELLS 0-5 /hpf (0-5); RED CELLS - URINE 0-5 /hpf (0-5); WHITE CELLS - URINE 0-5 /hpf (NEGATIVE)
--- NOTE | 2019-04-01 19:50 | NUR ---
FNGERSTICK BLOOD SUGAR 93
[2019-04-01 19:53] LABS: UDS - AMPHET NEGATIVE QUAL (NEGATIVE); UDS - BARB NEGATIVE QUAL (NEGATIVE); UDS - BENZO NEGATIVE QUAL (NEGATIVE); UDS - COCAINE NEGATIVE QUAL (NEGATIVE); UDS - OPIATE POSITIVE QUAL (NEGATIVE); UDS - PCP NEGATIVE QUAL (NEGATIVE); UDS - THC NEGATIVE QUAL (NEGATIVE)
[2019-04-01 20:35] LABS: BASOPHILS 0.2 % (0-2); EOSINOPHILS 0 % (0-7); HEMATOCRIT 35.4 % (36.0-48.0); HEMOGLOBIN 10.9 g/dL (12-16); IMMATURE GRANULOCYTES 0.2 % (0-5); LYMPHOCYTES 7.3 % (15-50); MCH 25.1 pg (26.0-34.0); MCHC 30.8 g/dL (31.0-37.0); MCV 81.4 fL (80.0-100.0); MEAN PLATELET VOLUME 9.5 fL (7.4-10.4); NEUTROPHILS 86.3 % (40-80); PLATELET COUNT 222 10x3/uL (130-400); RBC 4.35 10x6/uL (4.00-5.40); WBC 8.8 10x3/uL (4.8-10.8)
[2019-04-01 20:52] LABS: APTT 24.5 SECONDS (22.8-39.4); INR 1.11 (0.85-1.17); PROTIME 14.2 SECONDS (11.6-15.0)
[2019-04-01 20:58] VITALS: BP 107/60
[2019-04-01 21:07] LABS: ALBUMIN 2.6 g/dL (3.4-5.0); ALKALINE PHOSPHATASE 99 U/L (46-116); ALT (SGPT) 13 U/L (10-68); BILIRUBIN - TOTAL 0.71 mg/dL (0.2-1.3); CALC OSMOLALITY 279 mosm/kg (275-300); CARBON DIOXIDE 30.8 mmol/L (21.0-32.0); CHLORIDE - SERUM 103 mmol/L (98-107); CKMB 1.3 U/L (0.0-3.6); CREATINE KINASE 19 UL (21-215); CREATININE - SERUM 0.7 mg/dL (0.6-1.3); GLUCOSE 94 mg/dL (74-106); MAGNESIUM - SERUM 1.3 mg/dL (1.8-2.4); POTASSIUM - SERUM 4.6 mmol/L (3.5-5.1); PROTEIN - SERUM 5.5 g/dL (6.4-8.2); SODIUM 139 mmol/L (136-145); THYROID STIMULATING HORMONE 0.74 uIU/mL (0.36-3.74); TROPONIN-I 0.022 ng/mL (0.000-0.060); UREA NITROGEN 18 mg/dL (7-18); eGFR NON AFRICAN AMERICAN 85 mL/min (90-120)
[2019-04-01 21:15] LABS: CALCIUM 12.7 mg/dL (8.5-10.1)
--- NOTE | 2019-04-01 23:08 | NUR ---
SECOND ADMINISTRATION MAG SULFATE ADMINISTERED BY THIS NURSE PLEASE SEE EMAR.
[2019-04-01 23:20] VITALS: BP 111/63
[2019-04-01 23:38] VITALS: BP 125/63
[2019-04-02] VITALS (7 sets, daily range): BP systolic 101–142; BP diastolic 62–73; Ht 180.3 cm; Wt 76.0 kg
--- NOTE | 2019-04-02 00:30 | NUR ---
PATIENT SR WITH EPISODES OF SVT. DR OBRIEN ORDERED TELEMETRY FOR RECIEVING UNIT. DYLAN ON MED/SURG NOTIFIED OF NEW TELEMETRY ORDER
--- NOTE | 2019-04-02 09:36 | NUR ---
RESTING IN BED, NO DISTRESS NOTED, CONFUSED TO CARE AND DATE, STATES THAT SHE HAS BEEN HERE FOR 6 MO AND NO ONE IS HELPING HER
[2019-04-02 13:59] LABS: % SATURATION 10 % (15-55); IRON 20 ug/dl (35-150); TOTAL IRON BIND CAPACITY 196 ug/dl (260-445); UNSAT IRON BIND CAPACITY 176 ug/dl (150-375)
--- NOTE | 2019-04-02 19:00 | NUR ---
BEDSIDE REPORT RECEIVED AND CARE OF PT ASSUMED. PT LYING IN LOW CUELLAR'S POSITION WITH EYES CLOSED. RIGHT PORT ACCESSED WITH NS INFUSING AT 30 ML/HR. TELEMETRY IN PLACE AND READING 78 SR AT THIS ASSESSMENT. RUE WITH 3+ EDEMA. SCD'S IN PLACE ON BLE. WILL MONITOR FOR NEEDS. BED ALARM IN USE FOR SAFETY.
--- NOTE | 2019-04-02 21:19 | NUR ---
HS MEDICATIONS GIVEN TO INCLUDE DILAUDID PO PER PRN ORDER, PER REQUEST FOR PAIN. WILL CONTINUE TO MONITOR FOR NEEDS.
[2019-04-03] VITALS: BP 122/61
[2019-04-03 04:00] VITALS: BP 113/60
[2019-04-03 05:40] LABS: BASOPHILS 0 % (0-2); EOSINOPHILS 0 % (0-7); HEMATOCRIT 32.8 % (36.0-48.0); HEMOGLOBIN 9.9 g/dL (12-16); IMMATURE GRANULOCYTES 0.4 % (0-5); MCH 24.4 pg (26.0-34.0); MCHC 30.2 g/dL (31.0-37.0); MEAN PLATELET VOLUME 10.6 fL (7.4-10.4); MONOCYTES 4.6 % (2-11); PLATELET COUNT 241 10x3/uL (130-400); RBC 4.05 10x6/uL (4.00-5.40); RDW 14.9 % (11.5-14.5); WBC 8.2 10x3/uL (4.8-10.8)
[2019-04-03 06:21] LABS: CALC OSMOLALITY 284 mosm/kg (275-300); CALCIUM 11.6 mg/dL (8.5-10.1); CARBON DIOXIDE 30.6 mmol/L (21.0-32.0); CHLORIDE - SERUM 105 mmol/L (98-107); CREATININE - SERUM 0.6 mg/dL (0.6-1.3); GLUCOSE 135 mg/dL (74-106); POTASSIUM - SERUM 4.2 mmol/L (3.5-5.1); SODIUM 141 mmol/L (136-145); UREA NITROGEN 18 mg/dL (7-18); eGFR NON AFRICAN AMERICAN > 90 mL/min (90-120)
--- NOTE | 2019-04-03 08:49 | NUR ---
RESTING IN BED, EYES CLOSED, SOME CONFUSION NOTED, EDEMA CONT TO RIGHT ARM, ELEVATED ON BLANKETS, IV PER PORT, BED ALARMS ON
[2019-04-03 08:53] VITALS: BP 130/55
--- NOTE | 2019-04-03 11:27 | MORECARE ---
CASE MANAGEMENT DISCHARGE SUMMARY PATIENT: LYLE VILLA UNIT: [id number] ADM DATE: 04/01/19 AGE: 78 : 38 SEX: F ROOM/BED: D.2227 AUTHOR: ALON,DOC PHYSICIAN: REFERRING PHYSICIAN: VETO MARION MD DATE OF SERVICE: 04/03/19 Discharge Plan Patient Name: LYLE VILLA Facility: [facility]:[place] : 1940 Planned Disposition: Anticipated Discharge Date: Discharge Date: Expected LOS: Initial Reviewer: [email or web address] Initial Review Date: 04/02/2019 Generated: 04/03/19 12:27 pm Comments DCP- Discharge Planning Updated by [email or web address]: Kalani Short on 04/03/19 10:[address] late entry 04/02/19 CM received notice for Hospice consult. CM spoke with patient and then called daughter Naomi Lindquist. LILLIAN signed for [facility]. CM called [facility] and senior sales compensation analyst nurse Kaylan came to evaluate patient later that evening. Family requested to hold discharge until am to get residence ready for patient to come home and DME delivered. Patient can discharge back home on Thursday and Darlyn will admit at the home. CM will continue to follow and assist as needed with discharge planning / needs. Coverage Notice Reviewer: [email or web address] Riccardo Monsalve Notice Issued Date-Time: 04/02/2019 18:43 Notice Type: Medicare Outpatient Observation Notice Notice Delivered To: Relationship to Patient: Hand Weaver Name: Delivery Method: HAND - Hand Delivered Keshia Days: Prior Verbal Notification: Recipient Understood Notice: Yes Recipient Signature: Yes Med Rec Note Co-signed by Attending: Coverage Notice Comment: HAIDER delivered, explained, signed by the patient, and placed in the chart. Signed form also left with patient. Isabell Monsalve RN , CCM Reviewer: [email or web address] Riccardo Short Notice Issued Date-Time: 04/02/2019 14:00 Notice Type: Patient Choice Letter Notice Delivered To: Family Member Relationship to Patient: Daughter Hand Weaver Name: NAOMI LINDQUIST Delivery Method: PHONE - Phone Keshia Days: Prior Verbal Notification: Recipient Understood Notice: Yes Recipient Signature: Yes Med Rec Note Co-signed by Attending: Coverage Notice Comment: [facility] Patient Name: LYLE VILLA Page [phone] at 1127 All edits/amendments must be made on the electronic document DICTATION DATE: 04/03/191126 AUDIT ASSOCIATE: SIMON 04/03/191126 RPT#: [id number] DC DATE: STATUS: ADM IN [facility] [address] [place] [address] END OF REPORT
[2019-04-03 12:56] VITALS: BP 110/62
[2019-04-03 17:02] VITALS: BP 145/83
--- NOTE | 2019-04-03 19:44 | NUR ---
1730 TAKEN FROM HOSPITAL PER STRETCHER AND AMBULANCE, PERSONAL BELONGINGS SENT, PORT DEACCESSED AND FLUSHED WITH HEPARIN FLUSH
--- NOTE | 2019-04-04 09:37 | MORECARE ---
CASE MANAGEMENT DISCHARGE SUMMARY PATIENT: LYLE VILLA UNIT: [id number] ADM DATE: 04/01/19 AGE: 78 : 36 SEX: F ROOM/BED: D.2227 AUTHOR: ALON,DOC PHYSICIAN: REFERRING PHYSICIAN: VETO MARION MD DATE OF SERVICE: 04/04/19 Discharge Plan Patient Name: LYLE VILLA Facility: [facility]:[place] : 1940 Planned Disposition: Anticipated Discharge Date: Discharge Date: 04/03/2019 Expected LOS: Initial Reviewer: [email or web address] Initial Review Date: 04/02/2019 Generated: 04/04/19 10:36 am Comments DCP- Discharge Planning Updated by [email or web address]: Kalani Short on 04/03/19 10:[address] late entry 04/02/19 CM received notice for Hospice consult. CM spoke with patient and then called daughter Naomi Lindquist. LILLIAN signed for [facility]. CM called [facility] and distribution engineer nurse Kaylan came to evaluate patient later that evening. Family requested to hold discharge until am to get residence ready for patient to come home and DME delivered. Patient can discharge back home on Thursday and [facility] will admit at the home. CM will continue to follow and assist as needed with discharge planning / needs. Coverage Notice Reviewer: [id number] Riccardo Monsalve Notice Issued Date-Time: 04/02/2019 18:43 Notice Type: Medicare Outpatient Observation Notice Notice Delivered To: Relationship to Patient: Corrugated Box Machine Operator Name: Delivery Method: HAND - Hand Delivered Keshia Days: Prior Verbal Notification: Recipient Understood Notice: Yes Recipient Signature: Yes Med Rec Note Co-signed by Attending: Coverage Notice Comment: HAIDER delivered, explained, signed by the patient, and placed in the chart. Signed form also left with patient. Isabell Monsalve RN , CCM Reviewer: [id number] - Kalani Short Notice Issued Date-Time: 04/02/2019 14:00 Notice Type: Patient Choice Letter Notice Delivered To: Family Member Relationship to Patient: Daughter Corrugated Box Machine Operator Name: NAOMI LINDQUIST Delivery Method: PHONE - Phone Keshia Days: Prior Verbal Notification: Recipient Understood Notice: Yes Recipient Signature: Yes Med Rec Note Co-signed by Attending: Coverage Notice Comment: [facility] Last DP export: 04/03/19 10:27 a Patient Name: LYLE VILLA Page [id number] at 0937 All edits/amendments must be made on the electronic document DICTATION DATE: 04/04/19935 GASOLINE FINISHER: SIMON 04/04/19935 RPT#: [id number] DC DATE:04/03/19 STATUS: DIS IN [facility] [address] [place] [address] END OF REPORT
== END 2019-04-03 17:30 | disposition home health service (06) ==
LOC: D.ER 18:45 → D.MS 21:53 → OBSVTIME 21:53 → D.MS 04-03 17:30
PROVIDERS: Emergency Medicine; ADMIT Internal Medicine Nephrology; ATTEND Internal Medicine Nephrology
DX: M79.601 Pain in right arm (principal); N39.0 Urinary tract infection, site not specified; E83.52 Hypercalcemia; C49.9 Malignant neoplasm of connective and soft tissue, unspecified; C77.3 Secondary and unspecified malignant neoplasm of axilla and upper limb lymph nodes; I10 Essential (primary) hypertension; R27.0 Ataxia, unspecified; R41.82 Altered mental status, unspecified; D50.9 Iron deficiency anemia, unspecified; E83.42 Hypomagnesemia; E83.39 Other disorders of phosphorus metabolism; R59.0 Localized enlarged lymph nodes; J45.909 Unspecified asthma, uncomplicated